=== PATIENT | female | born 1975 | race Caucasian/White ===

== ENCOUNTER → 2017-06-04 | Outpatient (CLI) | payer OTHER | LOC: M SLEEP 07:29 | DX: G47.33 Obstructive sleep apnea (adult) (pediatric) (principal) ==

== ENCOUNTER → 2017-07-06 | Outpatient (REF) | payer OTHER | LOC: M WUC 19:20 | DX: N39.0 Urinary tract infection, site not specified (principal) | CPT/HCPCS: 87086 ==

== ENCOUNTER → 2017-08-12 | Outpatient (CLI) | payer OTHER | LOC: M SLEEP 07:27 | DX: G47.33 Obstructive sleep apnea (adult) (pediatric) (principal) | CPT/HCPCS: 95811 ==

== ENCOUNTER → 2018-04-27 | Outpatient (REF) | payer OTHER ==
[2018-04-30 14:13] LABS: HPV HYBRID CAPTURE II Negative (Negative)
== END ==
LOC: M SFHCWAGY 09:31
DX: Z12.4 Encounter for screening for malignant neoplasm of cervix (principal)

== ENCOUNTER 2018-10-09 22:57 | Emergency (ER) | payer OTHER ==
[~2018-10-09] VITALS: Ht 160 cm; Wt 109.1 kg
[2018-10-09] MEDS ORDERED: [UNRECOGNIZED DRUG - REMARK] (23:09)
[2018-10-09] MEDS ORDERED: ZANTTAB PO (23:09)
[2018-10-09] MEDS ORDERED: PARO40TA3 PO (23:09)
[2018-10-09 23:34] LABS: BASO # 0.1 10^3/uL (0.0-0.2); BASO % 0.8 % (0.0-1.0); EOS # 0.2 10^3/uL (0.0-0.50); EOS % 1.6 % (0.0-3.0); HEMATOCRIT 41.3 % (36.0-47.0); HEMOGLOBIN 13.5 g/dl (12.0-15.5); LYMPH # 4.3 10^3/uL (1.5-4.5); MEAN CORPUSCULAR HEMOGLOBIN 29.7 pg (27.0-33.0); MEAN CORPUSCULAR HGB CONC 32.7 g/dl (32.0-36.5); MEAN CORPUSCULAR VOLUME 90.8 fl (80.0-96.0); MONO # 0.8 10^3/uL (0.0-0.8); MONO % 6.6 % (0.0-5.0); NEUTROPHILS # 6.5 10^3/uL (1.8-7.7); NEUTROPHILS % 54.7 % (36.0-66.0); PLATELET COUNT, AUTOMATED 333 10^3/uL (150-450); RED BLOOD COUNT 4.55 10^6/uL (4.00-5.40); WHITE BLOOD COUNT 11.9 10^3/uL (4.0-10.0)
[2018-10-10] MEDS ORDERED: ASPIRIN 81 MG CHEW TABLET PO ONE
[2018-10-10 01:49] LABS: BLOOD UREA NITROGEN 27 MG/DL (7-18); CALCIUM LEVEL 9.1 MG/DL (8.5-10.1); CARBON DIOXIDE LEVEL 24 MEQ/L (21-32); CHLORIDE LEVEL 104 MEQ/L (98-107); CPK CREATINE PHOSPHOKINASE 161 U/L (26-192); CREATININE FOR GFR 0.79 MG/DL (0.55-1.30); GLOMERULAR FILTRATION RATE > 60.0 (>58); GLUCOSE, FASTING 79 MG/DL (70-100); MB/CK RELATIVE INDEX 0.99 (< OR =4); POTASSIUM SERUM 3.6 MEQ/L (3.5-5.1); SODIUM LEVEL 138 MEQ/L (136-145); TROPONIN I < 0.02 NG/ML (< 0.10)
[2018-10-10 04:15] VITALS: BP 122/64
[2018-10-10] MEDS ORDERED: NAPR-837 PO (04:35)
--- NOTE | 2018-10-10 05:03 | REP ---
Clinical: Acute chest pain . Comparison: None . Findings: The mediastinum and cardiac silhouette are stable and within normal limits for portable technique. The lung harris are clear without acute consolidation, effusion, or pneumothorax. Skeletal structures are intact. Impression: No acute cardiopulmonary process appreciated. Electronically Signed by Aditya Krishna MD 10/10/2018 04:55 A
--- NOTE | 2018-10-10 23:29 | ECGEPIP ---
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
== END 2018-10-10 04:40 | disposition home or self-care (01) ==
LOC: M ED 22:57
DX: R07.89 Other chest pain (principal); F33.9 Major depressive disorder, recurrent, unspecified; Z79.899 Other long term (current) drug therapy; Z87.891 Personal history of nicotine dependence

== ENCOUNTER → 2018-10-14 | Outpatient (REF) | payer OTHER ==
[~2018-10-14] MED LIST: NAPR-837 PO; PARO40TA3 PO; ZANTTAB PO; [UNRECOGNIZED DRUG - REMARK]
== END ==
LOC: M SFHCADAM 12:07
PROVIDERS: ATTEND Family Medicine
DX: R07.9 Chest pain, unspecified (principal); R00.2 Palpitations

== ENCOUNTER → 2018-11-15 | Outpatient (CLI) | payer OTHER ==
--- NOTE | 2018-11-15 09:36 | REP ---
Clinical: Right foot pain Technique: AP, lateral, bilateral oblique views right . Findings: The osseous structures and joint spaces are intact and there is no evidence for acute fracture or dislocation. Well corticated bony fragments inferolateral to the cuboid bone are non-acute. Surrounding soft tissues are unremarkable. No subcutaneous emphysema or radiodense foreign body. Impression: No acute fracture or dislocation. Electronically Signed by Aditya Krishna MD 11/15/2018 09:29 A
== END ==
LOC: M WUC 09:05
PROVIDERS: ATTEND Physician Assistant
DX: M79.671 Pain in right foot (principal)

== ENCOUNTER → 2018-12-30 | Outpatient (REF) | payer OTHER ==
[~2018-12-30] MED LIST changes: +ZANT150T40 PO; -ZANTTAB PO
== END ==
LOC: M LAB REF 16:13
PROVIDERS: ATTEND Physician Assistant
DX: R30.0 Dysuria (principal)

== ENCOUNTER → 2019-01-05 | Outpatient (CLI) | payer OTHER ==
--- NOTE | 2019-01-05 14:12 | REP ---
FIRST TRIMESTER OBSTETRIC SONOGRAPHY: HISTORY: Positive test. Abnormal bleeding. FINDINGS: Transabdominal and transvaginal scanning are performed. Two intrauterine gestational sacs are seen. Each contains a yolk sac. One of these sacs contain a 1 mm crown-rump length embryonic pole. This would correspond with a 8-hcwi-8-day gestational age estimate based on crown-rump length. The second sac is a little smaller and there is no discernible embryonic pole within it. There is a small right ovarian cyst measuring 1.4 cm in greatest diameter, which may be corpus luteum. heart rate in the visible embryonic pole is recorded at 139 beats per minute. IMPRESSION: Twin intrauterine gestation 7 weeks 0 days by crown-rump length. Only one of the two sacs contain a discernible embryonic pole at this juncture. Clinical and sonographic followup is recommended. JOSH by sonography August 24, 2019.
== END ==
LOC: M WHC 08:46
PROVIDERS: ATTEND Nurse Practitioner Women's Health
DX: Z32.01 Encounter for pregnancy test, result positive (principal)

== ENCOUNTER → 2019-01-16 | Outpatient (CLI) | payer OTHER ==
[2019-01-16 17:42] LABS: BASO # 0.1 10^3/uL (0.0-0.2); BASO % 0.8 % (0.0-1.0); EOS # 0.2 10^3/uL (0.0-0.50); HEMATOCRIT 40.5 % (36.0-47.0); HEMOGLOBIN 13.2 g/dl (12.0-15.5); MEAN CORPUSCULAR HEMOGLOBIN 30.8 pg (27.0-33.0); MEAN CORPUSCULAR HGB CONC 32.6 g/dl (32.0-36.5); MEAN CORPUSCULAR VOLUME 94.4 fl (80.0-96.0); MONO # 0.6 10^3/uL (0.0-0.8); NEUTROPHILS # 6.7 10^3/uL (1.8-7.7); NEUTROPHILS % 62.8 % (36.0-66.0); PLATELET COUNT, AUTOMATED 349 10^3/uL (150-450); RED BLOOD COUNT 4.29 10^6/uL (4.00-5.40); WHITE BLOOD COUNT 10.7 10^3/uL (4.0-10.0)
[2019-01-16 21:15] LABS: CHLAMYDIA DNA AMPLIFICATION NEGATIVE (NEGATIVE); GC DNA AMPLIFICATION NEGATIVE (NEGATIVE)
[2019-01-17 08:18] LABS: HIV 1&2 SCREEN CENTAUR NEGATIVE (NEGATIVE); RUBELLA IgG QUALITATIVE IMMUNE (IMMUNE)
== END ==
LOC: M SMT 11:34
PROVIDERS: ATTEND Specialist
DX: Z34.81 Encounter for supervision of other normal pregnancy, first trimester (principal); Z3A.00 Weeks of gestation of pregnancy not specified

== ENCOUNTER → 2019-01-24 | Outpatient (CLI) | payer OTHER | LOC: M SMT 14:53 | PROVIDERS: ATTEND Advanced Practice Midwife | DX: Z34.81 Encounter for supervision of other normal pregnancy, first trimester (principal); Z36.89 Encounter for other specified antenatal screening ==

== ENCOUNTER → 2019-03-22 | Outpatient (CLI) | payer OTHER ==
[2019-03-22 20:13] LABS: BASO # 0.1 10^3/uL (0.0-0.2); BASO % 0.6 % (0.0-1.0); EOS # 0.2 10^3/uL (0.0-0.5); EOS % 1.7 % (0.0-3.0); HEMATOCRIT 37.4 % (36.0-47.0); HEMOGLOBIN 12.2 g/dl (12.0-15.5); LYMPH % 30.7 % (24.0-44.0); MEAN CORPUSCULAR HEMOGLOBIN 30.6 pg (27.0-33.0); MEAN CORPUSCULAR HGB CONC 32.6 g/dl (32.0-36.5); MEAN CORPUSCULAR VOLUME 93.7 fl (80.0-96.0); MONO # 0.6 10^3/uL (0.0-0.8); MONO % 6.5 % (0.0-5.0); NEUTROPHILS # 5.8 10^3/uL (1.5-8.5); NEUTROPHILS % 60.3 % (36.0-66.0); PLATELET COUNT, AUTOMATED 291 10^3/uL (150-450); RED BLOOD COUNT 3.99 10^6/uL (4.00-5.40); WHITE BLOOD COUNT 9.7 10^3/uL (4.0-10.0)
[2019-03-22 20:22] LABS: ALT/SGPT 18 U/L (12-78); BILIRUBIN,TOTAL 0.2 MG/DL (0.2-1.0); BLOOD UREA NITROGEN 8 MG/DL (7-18); CALCIUM LEVEL 9.5 MG/DL (8.5-10.1); CARBON DIOXIDE LEVEL 24 MEQ/L (21-32); CHLORIDE LEVEL 106 MEQ/L (98-107); CREATININE FOR GFR 0.58 MG/DL (0.55-1.30); GLOMERULAR FILTRATION RATE > 60.0 (>58); GLUCOSE, FASTING 82 MG/DL (70-100); POTASSIUM SERUM 3.9 MEQ/L (3.5-5.1); SODIUM LEVEL 138 MEQ/L (136-145); TOTAL PROTEIN 7.2 GM/DL (6.4-8.2)
[2019-03-22 20:24] LABS: INR 0.97; PROTHROMBIN TIME 12.6 SECONDS (11.8-14.0)
[2019-03-22 20:25] LABS: PARTIAL THROMBOPLASTIN TIME 28.5 SECONDS (25.0-38.4)
== END ==
LOC: M WUC 16:10
PROVIDERS: ATTEND Physician Assistant
DX: S80.11XA Contusion of right lower leg, initial encounter (principal); X58.XXXA Exposure to other specified factors, initial encounter; Y92.9 Unspecified place or not applicable

== ENCOUNTER → 2019-03-23 | Outpatient (REF) | payer OTHER ==
[2019-03-23 13:56] LABS: CREATININE,RANDOM URINE 57.7 MG/DL; TOTAL PROTEIN,RANDOM URINE 10.4 MG/DL (0.0-12.0)
== END ==
LOC: M LAB REF 12:51
PROVIDERS: ATTEND Advanced Practice Midwife
DX: O09.522 Supervision of elderly multigravida, second trimester (principal)

== ENCOUNTER → 2019-04-04 | Outpatient (CLI) | payer OTHER ==
--- NOTE | 2019-04-05 02:22 | REP ---
Clinical: Anatomical evaluation. Comparison: 01/05/2019 . Findings: Examination demonstrates a single live intrauterine in cephalic presentation. motion is identified by technologist. Placenta is noted anterior and grade I without evidence for placenta previa or abruption. Amniotic fluid volume is normal. Cervix measures 5.7 cm in length and appears closed. No evidence for nuchal cord. Gestational age by LMP 19 weeks 5 days with JOSH 08/24/2019 . Gestational age by current measurements 20 weeks 4 days with JOSH 08/18/2019 . FHR equals 150 beats per minute. BPD 4.8 cm 20 weeks 3 days HC 17.7 cm 20 weeks 1 day AC 15.7 cm 20 weeks 6 days FL 3.3 cm 20 weeks 3 days HL 3.2 cm 20 weeks 5 days HC/AC ratio 1.13 Estimated weight 365 grams ( 75th percentile). Anatomical assessment demonstrates normal structures including cranium, choroid plexus, cavum, lungs, diaphragm, stomach, cord insertion/three-vessel cord, bladder,and extremities. Limited evaluation of the posterior fossa, facial features, heart/ventricular outflow tracts, kidneys and spine noted. Impression: 1. Single live intrauterine in cephalic presentation demonstrating appropriate interval growth. 2. While no gross abnormalities are identified, anatomical limitations as noted above may warrant followup. Electronically Signed by Aditya Krishna MD 04/05/2019 02:14 A
== END ==
LOC: M RAD 15:58
PROVIDERS: ATTEND Advanced Practice Midwife
DX: Z34.82 Encounter for supervision of other normal pregnancy, second trimester (principal); Z36.89 Encounter for other specified antenatal screening; Z3A.19 19 weeks gestation of pregnancy

== ENCOUNTER → 2019-04-24 | Outpatient (CLI) | payer OTHER ==
--- NOTE | 2019-04-24 16:50 | REP ---
OB ULTRASOUND: Real-time sonographic evaluation of the gravid uterus is performed. There is a single living intrauterine gestation. The estimated gestational age is 22 weeks 4 days. EDC 08/24/2019. Today's measurements indicate appropriate growth. BPD 56 mm = 23 weeks 1 day, at the 66th percentile. HC 214 mm = 23 weeks 3 days, at the 77th percentile. AC 189 mm = 23 weeks 5 days, at the 73rd percentile. Femur length 42 mm = 23 weeks 3 days, at the 72nd percentile. HC/AC ratio 1.13 within normal range. Estimated weight 608 grams, 77th percentile. heart rate 144 beats per minute. SEEN/GROSSLY UNREMARKABLE Lateral ventricles Yes Posterior fossa Yes Upper lip Yes Four-chamber heart Yes LVOT No RVOT No Stomach No Cord insertion No Three vessel cord no Kidneys Yes Bladder No Spine Yes position: Transverse with head toward the maternal right side. Placenta: Anterior and grade 0 with no previa or abruption. Amniotic fluid: Within normal limits. Cervix is closed and measures 5.6 cm in length. Electronically Signed by Naga Maher MD 04/24/2019 04:56 P
== END ==
LOC: M RAD 15:14
PROVIDERS: ATTEND Advanced Practice Midwife
DX: O09.522 Supervision of elderly multigravida, second trimester (principal); Z3A.22 22 weeks gestation of pregnancy

== ENCOUNTER → 2019-05-25 | Outpatient (CLI) | payer OTHER ==
[2019-05-25 10:02] LABS: HEMATOCRIT 38.3 % (36.0-47.0); HEMOGLOBIN 12.2 g/dl (12.0-15.5); MEAN CORPUSCULAR HGB CONC 31.9 g/dl (32.0-36.5); MEAN CORPUSCULAR VOLUME 94.1 fl (80.0-96.0); PLATELET COUNT, AUTOMATED 257 10^3/uL (150-450); RED BLOOD COUNT 4.07 10^6/uL (4.00-5.40); WHITE BLOOD COUNT 7.8 10^3/uL (4.0-10.0)
--- NOTE | 2019-05-25 20:57 | REP ---
Clinical: Anatomical evaluation. Comparison: 04/24/2019 . Findings: Examination demonstrates a single live intrauterine in cephalic presentation. motion is identified by technologist. Placenta is noted anterior and grade zero without evidence for placenta previa or abruption. Amniotic fluid volume is normal. Cervix measures 4.8 cm in length and appears closed. No evidence for nuchal cord. Gestational age by LMP 27 weeks 0 days with JOSH 08/24/2019 . Gestational age by current measurements 28 weeks 5-day with JOSH 08/12/2019 . FHR equals 151 beats per minute. Amniotic fluid volume: 20.1 cm Umbilical cord SD ratio: 2.29 (2.60 - 4.00) Estimated weight 1274 grams ( 89th percentile). Anatomical assessment demonstrates normal structures. Impression: Single live intrauterine in cephalic presentation demonstrating appropriate interval growth. No gross abnormalities are identified. 2. Umbilical cord SD ratio minimally below normal range. Electronically Signed by Aditya Krishna MD 05/25/2019 08:48 P
== END ==
LOC: M RAD 08:08
PROVIDERS: ATTEND Obstetrics & Gynecology
DX: O09.522 Supervision of elderly multigravida, second trimester (principal); Z3A.27 27 weeks gestation of pregnancy

== ENCOUNTER → 2019-07-27 | Outpatient (REF) | payer OTHER | LOC: M SFHCWAGY 13:22 | PROVIDERS: ATTEND Nurse Practitioner Women's Health | DX: Z36.85 Encounter for antenatal screening for Streptococcus B (principal) ==

== ENCOUNTER → 2019-08-03 | Outpatient (CLI) | payer OTHER ==
--- NOTE | 2019-08-04 06:26 | REP ---
Clinical: Size/growth discrepancy. Comparison: 05/25/2019 . Findings: Examination demonstrates a single live intrauterine in cephalic presentation. motion is identified by technologist. Placenta is noted anterior and grade I I without evidence for placenta previa or abruption. Amniotic fluid volume is normal. Cervix appears closed. Gestational age by LMP 37 weeks 0 days with JOSH 08/24/2019 . Gestational age by current measurements 37 weeks 5 days with JOSH 08/19/2019 . FHR equals 146 beats per minute. Estimated weight 3963 grams ( greater than 97 percentile based on age by LMP). Amniotic fluid index: 13.9 cm (7.5 - 24.4). Impression: Single live advanced gestation in cephalic presentation demonstrating greater than expected interval growth.
== END ==
LOC: M WHC 08:13
PROVIDERS: ATTEND Nurse Practitioner Women's Health
DX: O26.843 Uterine size-date discrepancy, third trimester (principal); Z3A.37 37 weeks gestation of pregnancy; O36.63X0 Maternal care for excessive fetal growth, third trimester, not applicable or unspecified

== ENCOUNTER 2019-08-18 07:54 | Inpatient (IN) | payer OTHER ==
[2019-08-18] VITALS (34 sets, daily range): BP systolic 101–157; BP diastolic 51–82
[~2019-08-18] VITALS: Ht 160 cm; Wt 123.2 kg
[2019-08-18] MEDS ORDERED: miSOPROStol 50 MCG 1/2 TAB (S0191) PO SCH (09:00)
[2019-08-18] MEDS ORDERED: PENICILLIN G POTASSIUM IV 5 MU in D5W MINI-BAG PLUS 100 ML IV STA (09:14)
[2019-08-18 09:49] LABS: HEMATOCRIT 39.8 % (36.0-47.0); HEMOGLOBIN 13.3 g/dl (12.0-15.5); MEAN CORPUSCULAR HEMOGLOBIN 30.2 pg (27.0-33.0); MEAN CORPUSCULAR HGB CONC 33.4 g/dl (32.0-36.5); MEAN CORPUSCULAR VOLUME 90.5 fl (80.0-96.0); PLATELET COUNT, AUTOMATED 207 10^3/uL (150-450); WHITE BLOOD COUNT 7.4 10^3/uL (4.0-10.0)
--- NOTE | 2019-08-18 09:55 | HPE ---
DATE OF ADMISSION: 08/18/2019 HISTORY: Cleo is a 43-year-old, 4, para 2-0-1-2, at 39 and 1/7 weeks gestation with an expected date of confinement (EDC) of 08/24/2019, based on first trimester ultrasound. She presents to labor and delivery today for induction of labor due to advanced maternal age. Her care was initiated at [facility] in the first trimester. Her course was complicated by advanced maternal age. She was not a candidate to have aneuploidy screening done due to a diagnosis of vanishing twin with three sets of DNA, so ineligible for testing for panorama, and anxiety that has been managed with Zoloft throughout her . She denies any regular painful contractions, vaginal bleeding and leakage of fluid. Her fetus has been active. OBSTETRIC HISTORY: In 2006, blighted ovum, surgical dilation and curettage. November 2007, 39 weeks gestation, 7 pound 12 ounce male, spontaneous vaginal delivery. September 2010, 39 weeks gestation, 8 pound 3 ounce male, spontaneous vaginal delivery, with a labor that was augmented with IV Pitocin. OBSTETRIC LABS: A positive. Antibody screen negative. Rubella immune. VDRL nonreactive. Urine culture no growth. Hepatitis B surface antigen negative. HIV negative. Hepatitis C antibody nonreactive. Gonorrhea and Chlamydia negative. Gestational diabetic screening normal at 113. Her GBS is positive. PAST MEDICAL HISTORY: Obesity. Childhood febrile seizures. Anxiety. Varicose veins. Childhood varicella. SURGERIES: Dilation and curettage. FAMILY HISTORY: Diabetes. Hypertension. Heart disease. Seizure. SOCIAL HISTORY: The patient is . Her is at bedside and supportive. She is a nonsmoker. Denies alcohol and drug use. No history of any sexually transmitted infections. She denies history of abuse - physical, sexual and emotional. ALLERGIES: No known drug allergies. CURRENT MEDICATIONS: Zoloft 25 mg. vitamin. OBJECTIVE: A complete set of vital signs have yet to be taken after patient's arrival. Her pulse is 86, blood pressure is 133/74. She is alert and oriented times three. She is in no apparent discomfort. She is smiling and talkative. heart rate is 130 with moderate variability, positive accelerations, no decelerations observed. There is no pattern of regular contractions. Her abdomen is gravid. Cephalic presentation. Estimated weight 4200 grams. Sterile Vaginal Exam: Fingertip dilated, 50% effaced, -2 station, posterior, extremely soft, scant bloody show with the exam. ASSESSMENT: Intrauterine at 39 and 1/7 weeks. heart rate Category 1. Advanced maternal age. PLAN: Admit patient to labor and delivery for induction of labor per consult with Dr. Minh Saleem. Plan to start misoprostol 50 mcg by mouth every 4 hours for cervical ripening. Out of bed ad diane. Regular diet at this time. Saline lock. Start GBS prophylaxis with antibiotics IV. I did review risks, benefits and alternatives to induction. The patient and her had their questions answered. She has been verbally consented for emergency surgery and blood products if necessary. I do anticipate cervical ripening, labor and a vaginal delivery.
[2019-08-18] MEDS: LR 1,000 ML IV SCH ×3 (10:19→21:10)
[2019-08-18] MEDS ORDERED: LR 1,000 ML IV SCH (14:47)
[2019-08-18] MEDS ORDERED: OXYTOCIN DRIP 30 UNITS in IV 1 EA IV SCH (15:00)
[2019-08-18] MEDS: SERTRALINE HCL 50 MG TAB PO SCH (15:36)
[2019-08-18] MEDS ORDERED: FENTANYL 2MCG/ML ROPIVACAINE 0.2% IN 0.9% NACL 100ML IVBAG As Ordered ONE (19:29)
[2019-08-18] MEDS: PENICILLIN G POTASSIUM IV 2.5 MU in IV 1 EA IV SCH ×2 (19:30→23:13)
[2019-08-18] MEDS ORDERED: ONDANSETRON 4MG/2ML VIAL (J2405) IV PRN (20:15)
[2019-08-18] MEDS ORDERED: EPIDURAL/PCA KEYS XX PRN (20:15)
[2019-08-18] MEDS ORDERED: REFRIGERATOR IV KEYS XX PRN (20:15)
[2019-08-18] MEDS ORDERED: EPIDURAL COMMENT XX SCH (20:15)
[2019-08-18] MEDS ORDERED: ePHEDrine SULFATE 25 MG/5 ML(5MG/ML) SYRINGE IV PRN (20:15)
[2019-08-18] MEDS ORDERED: diphenhydrAMINE INJ 50MG/ML VIAL (J1200) IV PRN (20:15)
[2019-08-18] MEDS ORDERED: LACTATED RINGER'S 1000 ML IV PRN (20:15)
[2019-08-18] MEDS ORDERED: NALOXONE INJ 0.4 MG/1 ML VIAL (J2310) IV PRN (20:15)
[2019-08-18] MEDS: FENTANYL/ROPIVACAINE/NACL BAG 100 ML EPIDURAL SCH (20:39)
[2019-08-19] VITALS (34 sets, daily range): BP systolic 113–168; BP diastolic 54–101
[2019-08-19] MEDS: PENICILLIN G POTASSIUM IV 2.5 MU in IV 1 EA IV SCH (03:44)
[2019-08-19] MEDS ORDERED: FENTANYL 2MCG/ML ROPIVACAINE 0.2% IN 0.9% NACL 100ML IVBAG As Ordered ONE (04:32)
[2019-08-19] MEDS: FENTANYL/ROPIVACAINE/NACL BAG 100 ML EPIDURAL SCH (04:36)
[2019-08-19 05:47] LABS: CORD GAS ABE V -2.2; CORD GAS HCO3 V 23.3 MEQ/L; CORD GAS O2 SAT V 63.6 %; CORD GAS PCO2 V 42.2 mmHg; CORD GAS PH V 7.359 UNITS; CORD GAS PO2 V 25.3 mmHg; CORD GAS SBC V 21.7 MEQ/L; CORD GAS TCO2 V 24.5 MEQ/L
[2019-08-19 05:48] LABS: CORD GAS ABE A -3.2; CORD GAS HCO3 A 24.5 MEQ/L; CORD GAS O2 SAT A 33.5 %; CORD GAS PCO2 A 53.8 mmHg; CORD GAS PH A 7.277 UNITS; CORD GAS PO2 A 17.1 mmHg; CORD GAS SBC A 20.1 MEQ/L; CORD GAS TCO2 A 26.2 MEQ/L
[2019-08-19] MEDS ORDERED: OXYTOCIN DRIP 30 UNITS in IV 1 EA IV SCH (06:06)
[2019-08-19] MEDS ORDERED: MEASLES,MUMPS,RUBELLA VACCINE INJ (MMR-II) (90707) SC SCH (06:15)
[2019-08-19] MEDS ORDERED: ACETAMINOPHEN TAB 650MG DOSE (2X325MG) PO PRN (06:15)
[2019-08-19] MEDS ORDERED: METHYLERGONOVINE MALEATE 0.2 MG TAB PO PRN (06:15)
[2019-08-19] MEDS ORDERED: RHOGAM 300 MCG (1500 IU) INJ (J2790) IM SCH (06:15)
[2019-08-19] MEDS ORDERED: IBUPROFEN 800 MG TAB PO PRN (06:15)
[2019-08-19] MEDS ORDERED: DIBUCAINE 1% OINTMENT 30GM TOP PRN (06:15)
[2019-08-19] MEDS ORDERED: DOCUSATE SODIUM 100 MG CAP PO PRN (06:15)
--- NOTE | 2019-08-19 06:38 | DN ---
DATE OF DELIVERY: 08/19/2019 DELIVERY NOTE: Cleo is a 43-year-old, 4, para 3-0-1-3 now , who was admitted to labor and delivery for induction of labor. Misoprostol and IV Pitocin was used and labor ensued. She used an epidural to cope with her labor. She reached full dilation at 0524 hours. She pushed to a normal spontaneous vaginal delivery of a live female infant in right occiput anterior (KAREN) position with restitution to occiput transverse (ROT) position at 0532 hours. There is a nuchal cord times one loose that was reduced manually at the time of delivery. The female shoulders delivered with gentle downward traction and the corpus immediately followed and was placed on maternal abdomen crying and active. Mouth and nares were bulb suctioned. The cord was clamped times two and cut by the father of the baby under my direction. Cord blood and cord gases were obtained. Arterial cord gas 7.277, base excess -3.2. Venous cord pH 7.359 with a base excess of -2.2. Spontaneous expulsion of an intact placenta with three-vessel cord by Schultze mechanism was at 0535 hours. Uterine hemostasis was achieved with IV Pitocin rapid infusion and uterine fundal massage. Estimated blood loss 350 mL. Perineum and vagina inspected and noted to have a vaginal abrasion. The vaginal abrasion was repaired with #3-0 Rapide in the usual fashion for hemostasis. female weighed 8 pounds 10 ounces (3900 grams), 8 and 9. Mom is going to breastfeed her daughter and the family have named her Bison. At the close of delivery, lap counts, needle counts and instrument counts were correct and verified.
[2019-08-19] MEDS: PRENATAL VITAMINS CHEWABLE TABLET PO SCH ×2 (09:35→09:36)
[2019-08-19] MEDS: SERTRALINE HCL 50 MG TAB PO SCH (09:47)
[2019-08-19] MEDS: ACETAMINOPHEN 500 MG TAB PO PRN ×2 (09:47→14:18)
[2019-08-19] MEDS: IBUPROFEN 600 MG TAB PO PRN (12:58)
[2019-08-19] MEDS: FIORICET TAB PO PRN ×2 (16:32→20:51)
[2019-08-20] MEDS: IBUPROFEN 600 MG TAB PO PRN (00:57)
[2019-08-20 06:00] VITALS: BP 117/57
[2019-08-20] MEDS: SERTRALINE HCL 50 MG TAB PO SCH (09:35)
[2019-08-20] MEDS: PRENATAL VITAMINS CHEWABLE TABLET PO SCH (09:35)
[2019-08-20] MEDS: FIORICET TAB PO PRN ×2 (10:21→20:36)
[2019-08-20 18:00] VITALS: BP 137/64
[2019-08-21 06:00] VITALS: BP 118/61
[2019-08-21] MEDS ORDERED: ACET-683 PO (07:03)
[2019-08-21] MEDS ORDERED: IBUP-1022 PO (07:03)
[2019-08-21] MEDS: PRENATAL VITAMINS CHEWABLE TABLET PO SCH (09:04)
== END 2019-08-21 12:30 | disposition home or self-care (01) | DRG 807 ==
LOC: M LDI 07:54 → M OBS 08-19 10:01
PROVIDERS: ADMIT Advanced Practice Midwife; ATTEND Advanced Practice Midwife
PROC: 3E033VJ Introduction of Other Hormone into Peripheral Vein, Percutaneous Approach (ICD-10-PCS; 2019-08-18)
PROC: 10E0XZZ Delivery of Products of Conception, External Approach (ICD-10-PCS; principal; 2019-08-19)
PROC: 0HQ9XZZ Repair Perineum Skin, External Approach (ICD-10-PCS; 2019-08-19)
DX: O70.0 First degree perineal laceration during delivery (principal); Z37.0 Single live birth; Z3A.39 39 weeks gestation of pregnancy; O09.523 Supervision of elderly multigravida, third trimester

== ENCOUNTER 2019-12-26 14:23 | Emergency (ER) | payer OTHER ==
[~2019-12-26 14:23] MED LIST changes: +ACET-683 PO; +IBUP-1022 PO
== END 2019-12-26 14:36 | disposition home or self-care (01) ==
LOC: M ED 14:23
DX: S39.012A Strain of muscle, fascia and tendon of lower back, initial encounter (principal); M25.561 Pain in right knee; W01.0XXA Fall on same level from slipping, tripping and stumbling without subsequent striking against object, initial encounter; Y92.9 Unspecified place or not applicable; Z79.899 Other long term (current) drug therapy

== ENCOUNTER → 2020-02-13 | Outpatient (REF) | payer OTHER | LOC: M LAB REF 18:41 | PROVIDERS: ATTEND Dermatology | DX: D23.72 Other benign neoplasm of skin of left lower limb, including hip (principal); D23.62 Other benign neoplasm of skin of left upper limb, including shoulder ==

== ENCOUNTER → 2020-07-05 | Outpatient (CLI) | payer OTHER ==
[~2020-07-05] MED LIST changes: +FAMO20TA PO; +SERT-141 PO
== END ==
LOC: M LABSMTC 10:15
PROVIDERS: ATTEND Anesthesiology
DX: Z01.812 Encounter for preprocedural laboratory examination (principal); Z20.822 Contact with and (suspected) exposure to COVID-19

== ENCOUNTER 2020-07-10 08:09 | Day surgery (SDC) | payer OTHER ==
[~2020-07-10] VITALS: Ht 160 cm; Wt 109.8 kg
[~2020-07-10 08:09] MED LIST changes: +LR 1,000 ML IV ONE; +ceFAZolin SOD 2 GM in IV 1 EA IV ONE
--- OUTSIDE RECORDS SUMMARY | 2020-07-10 08:12 | CCD | Continuity of Care Document ---
Author Author Cleo LOPEZ P.Carol Organization Unknown Address [address] [place] [id number] Phone [phone] Problems Description No Information Available Social History Type Date Description Comments Sex Unknown Allergies, Adverse Reactions, Alerts Description No Information Available Medications Description No Information Available Immunizations Description No Information Available Vital Signs Description No Information Available Results Description No Information Available Procedures Date Code Description Status 05/10/2020 62505 Therapeutic Procedure, Each 15 M inutes Completed 05/10/2020 41911 Ultrasound, Each 15 Min, Constan t Attendance Completed 05/10/2020 47056 Hot Or Cold Packs Completed 05/06/2020 06606 Therapeutic Procedure, Each 15 M inutes Completed 05/06/2020 37781 Ultrasound, Each 15 Min, Constan t Attendance Completed 05/06/2020 62119 Hot Or Cold Packs Completed 04/12/2020 47336 Therapeutic Procedure, Each 15 M inutes Completed 04/12/2020 34603 Therapeutic Procedure, Each 15 M inutes Completed 04/12/2020 95105 Ultrasound, Each 15 Min, Constan t Attendance Completed 04/09/2020 47286 Therapeutic Procedure, Each 15 M inutes Completed 04/09/2020 66107 Therapeutic Procedure, Each 15 M inutes Completed 04/09/2020 42658 Ultrasound, Each 15 Min, Constan t Attendance Completed 04/04/2020 70416 Ultrasound, Each 15 Min, Constan t Attendance Completed 04/04/2020 64252 Therapeutic Procedure, Each 15 M inutes Completed 04/02/2020 38798 Therapeutic Procedure, Each 15 M inutes Completed 04/02/2020 90375 Ultrasound, Each 15 Min, Constan t Attendance Completed 03/28/2020 37420 Therapeutic Procedure, Each 15 M inutes Completed 03/28/2020 20054 Ultrasound, Each 15 Min, Constan t Attendance Completed 03/28/2020 64029 Hot Or Cold Packs Completed 03/26/2020 21219 Manual Therapy Each 15 Minutes C ompleted 03/26/2020 01487 Therapeutic Procedure, Each 15 M inutes Completed 03/26/2020 14480 Hot Or Cold Packs Completed 03/20/2020 29516 Hot Or Cold Packs Completed 03/20/2020 99634 Therapeutic Procedure, Each 15 M inutes Completed 03/20/2020 99584 Manual Therapy Each 15 Minutes C ompleted 03/20/2020 38299 Re-Eval Of PT Establ ished Plan Of Care 20Mins Face To Face PT/Fam Completed 03/18/2020 79345 Therapeutic Procedure, Each 15 M inutes Completed 03/18/2020 88957 Therapeutic Procedure, Each 15 M inutes Completed 03/18/2020 59486 Hot Or Cold Packs Completed 03/13/2020 20616 Therapeutic Procedure, Each 15 M inutes Completed 03/13/2020 89797 Therapeutic Procedure, Each 15 M inutes Completed 03/11/2020 78390 Therapeutic Procedure, Each 15 M inutes Completed 03/11/2020 45661 Therapeutic Procedure, Each 15 M inutes Completed 03/11/2020 61855 Hot Or Cold Packs Completed 03/05/2020 50549 Therapeutic Procedure, Each 15 M inutes Completed 03/05/2020 53256 Therapeutic Procedure, Each 15 M inutes Completed 02/28/2020 40449 Therapeutic Procedure, Each 15 M inutes Completed 02/28/2020 51463 Therapeutic Procedure, Each 15 M inutes Completed 02/26/2020 98929 Therapeutic Procedure, Each 15 M inutes Completed 02/26/2020 97477 Therapeutic Procedure, Each 15 M inutes Completed 02/23/2020 94347 Therapeutic Procedure, Each 15 M inutes Completed 02/21/2020 84222 Therapeutic Procedure, Each 15 M inutes Completed 02/21/2020 59446 Therapeutic Procedure, Each 15 M inutes Completed 02/21/2020 69548 Therapeutic Procedure, Each 15 M inutes Completed 02/15/2020 87694 Therapeutic Procedure, Each 15 M inutes Completed 02/15/2020 86159 Therapeutic Procedure, Each 15 M inutes Completed 02/13/2020 06273 Therapeutic Procedure, Each 15 M inutes Completed 02/13/2020 02216 Therapeutic Procedure, Each 15 M inutes Completed 02/08/2020 72349 Therapeutic Procedure, Each 15 M inutes Completed 02/08/2020 27304 Therapeutic Procedure, Each 15 M inutes Completed 02/06/2020 66122 Therapeutic Procedure, Each 15 M inutes Completed 02/06/2020 24669 Therapeutic Procedure, Each 15 M inutes Completed 02/06/2020 93036 Hot Or Cold Packs Completed 01/18/2020 67678 Therapeutic Procedure, Each 15 M inutes Completed 01/18/2020 90028 Therapeutic Procedure, Each 15 M inutes Completed 01/18/2020 28399 Hot Or Cold Packs Completed 01/16/2020 27798 Therapeutic Procedure, Each 15 M inutes Completed 01/16/2020 12448 Therapeutic Procedure, Each 15 M inutes Completed 01/11/2020 05848 Therapeutic Procedure, Each 15 M inutes Completed 01/11/2020 27929 Therapeutic Procedure, Each 15 M inutes Completed 01/11/2020 91998 Hot Or Cold Packs Completed 01/09/2020 31568 Hot Or Cold Packs Completed 01/09/2020 91654 Therapeutic Procedure, Each 15 M inutes Completed 01/09/2020 55043 Therapeutic Procedure, Each 15 M inutes Completed 01/03/2020 14807 Therapeutic Procedure, Each 15 M inutes Completed 01/03/2020 64615 Therapeutic Procedure, Each 15 M inutes Completed 01/03/2020 31598 Hot Or Cold Packs Completed 01/01/2020 79544 Therapeutic Procedure, Each 15 M inutes Completed 01/01/2020 82107 Hot Or Cold Packs Completed 12/28/2019 71217 Therapeutic Procedure, Each 15 M inutes Completed 12/28/2019 60712 Hot Or Cold Packs Completed 12/21/2019 53791 Therapeutic Procedure, Each 15 M inutes Completed 12/21/2019 35857 Hot Or Cold Packs Completed 12/19/2019 22651 Hot Or Cold Packs Completed 12/19/2019 52220 Therapeutic Procedure, Each 15 M inutes Completed 12/19/2019 32484 Therapeutic Procedure, Each 15 M inutes Completed 12/13/2019 68007 Therapeutic Procedure, Each 15 M inutes Completed 12/13/2019 18786 Therapeutic Procedure, Each 15 M inutes Completed 12/13/2019 72920 Therapeutic Procedure, Each 15 M inutes Completed 12/13/2019 49181 Hot Or Cold Packs Completed 12/11/2019 67553 Therapeutic Procedure, Each 15 M inutes Completed 12/11/2019 92663 Therapeutic Procedure, Each 15 M inutes Completed 12/11/2019 16501 Hot Or Cold Packs Completed 12/07/2019 71523 Hot Or Cold Packs Completed 12/07/2019 38497 Therapeutic Procedure, Each 15 M inutes Completed 12/07/2019 89402 Therapeutic Procedure, Each 15 M inutes Completed 12/07/2019 23989 Re-Eval Of PT Establ ished Plan Of Care 20Mins Face To Face PT/Fam Completed 12/05/2019 23705 Therapeutic Procedure, Each 15 M inutes Completed 12/05/2019 13938 Therapeutic Procedure, Each 15 M inutes Completed 12/05/2019 08226 Hot Or Cold Packs Completed 12/01/2019 40326 Therapeutic Procedure, Each 15 M inutes Completed 12/01/2019 58999 Therapeutic Procedure, Each 15 M inutes Completed 12/01/2019 96852 Hot Or Cold Packs Completed 11/29/2019 95733 Manual Therapy Each 15 Minutes C ompleted 11/29/2019 66562 Therapeutic Procedure, Each 15 M inutes Completed 11/29/2019 42559 Therapeutic Procedure, Each 15 M inutes Completed 11/29/2019 24271 Hot Or Cold Packs Completed 11/21/2019 37573 Physical Therapy Eval - Low Comp lexity Completed 11/21/2019 33273 Hot Or Cold Packs Completed Medical Devices Description No Information Available Encounters Description No Information Available Assessments Date Code Description Provider 05/10/2020 S83.242D Other tear of medial meniscus, current injury, left knee, subsequent encounter Tu Lopez P.T. 05/06/2020 S83.242D Other tear of medial meniscus, current injury, left knee, subsequent encounter Cleo Maher, [facility] 04/12/2020 S83.242D Other tear of medial meniscus, current injury, left knee, subsequent encounter Cleo Maher, [facility] 04/09/2020 S83.242D Other tear of medial meniscus, current injury, left knee, subsequent encounter Cleo Maher, [facility] 04/04/2020 S83.242D Other tear of medial meniscus, current injury, left knee, subsequent encounter Cleo Maher, [facility] 04/02/2020 S83.242D Other tear of medial meniscus, current injury, left knee, subsequent encounter Cleo Maher, [facility] 03/28/2020 S83.242D Other tear of medial meniscus, current injury, left knee, subsequent encounter Cleo Maher, [facility] 03/26/2020 S83.242D Other tear of medial meniscus, current injury, left knee, subsequent encounter Cleo Maher, [facility] 03/20/2020 S83.242D Other tear of medial meniscus, current injury, left knee, subsequent encounter Cleo Maher, [facility] 03/18/2020 S83.242D Other tear of medial meniscus, current injury, left knee, subsequent encounter Cleo Maher, [facility] 03/13/2020 S83.242D Other tear of medial meniscus, current injury, left knee, subsequent encounter Cleo Maher, [facility] 03/11/2020 S83.242D Other tear of medial meniscus, current injury, left knee, subsequent encounter Cleo Maher, [facility] 03/05/2020 S83.242D Other tear of medial meniscus, current injury, left knee, subsequent encounter Cleo Maher, [facility] 02/28/2020 S80.02xD Contusion of left knee, subseque nt encounter Cleo Cariaspa, [facility] 02/26/2020 S80.02xD Contusion of left knee, subseque nt encounter Juanjose Holder, PT, DPT 02/23/2020 S80.02xD Contusion of left knee, subseque nt encounter Juanjose Holder, PT, DPT 02/21/2020 S80.02xD Contusion of left knee, subseque nt encounter Tu Lopez P.T. 02/15/2020 S80.02xD Contusion of left knee, subseque nt encounter [facility] Cariaspa, [facility] 02/13/2020 S80.02xD Contusion of left knee, subseque nt encounter Cleo M. Jvpa, [facility] 02/08/2020 S80.02xD Contusion of left knee, subseque nt encounter Cleo M. Vespa, [facility] 02/06/2020 S80.02xD Contusion of left knee, subseque nt encounter Cleo M. Vespa, [facility] 01/18/2020 S80.02xD Contusion of left knee, subseque nt encounter Cleo M. Jvpa, [facility] 01/16/2020 S80.02xD Contusion of left knee, subseque nt encounter Cleo Cariasarnol, [facility] 01/11/2020 S80.02xD Contusion of left knee, subseque nt encounter Cleo Maher, [facility] 01/09/2020 S80.02xD Contusion of left knee, subseque nt encounter Cleo Tae Cariasarnol, [facility] 01/03/2020 S80.02xD Contusion of left knee, subseque nt encounter Cleo Cariasarnol, [facility] 01/01/2020 S80.02xD Contusion of left knee, subseque nt encounter Tu Lopez P.T. 12/28/2019 S80.02xD Contusion of left knee, subseque nt encounter Tu Lopez P.T. 12/21/2019 S80.02xD Contusion of left knee, subseque nt encounter Cleo Cariasarnol, [facility] 12/19/2019 S80.02xD Contusion of left knee, subseque nt encounter Cleo Cariasarnol, [facility] 12/13/2019 S80.02xD Contusion of left knee, subseque nt encounter Tu Lopez P.T. 12/11/2019 S80.02xD Contusion of left knee, subseque nt encounter Tu Lopez P.T. 12/07/2019 S80.02xD Contusion of left knee, subseque nt encounter Cleo Cariasarnol, [facility] 12/05/2019 S80.02xD Contusion of left knee, subseque nt encounter Cleo CortesSemaj Jvarnol, [facility] 12/01/2019 S80.02xD Contusion of left knee, subseque nt encounter Cleonarciso Maher, [facility] 11/29/2019 S80.02xD Contusion of left knee, subseque nt encounter Cleonarciso Maher, [facility] 11/21/2019 S80.02xD Contusion of left knee, subseque nt encounter KEREN Samson Plan of Treatment Future Appointment(s):* 05/22/2020 8:30 am - KEREN Samson at Physical Therapy Referral Functional Status Description No Information Available Mental Status Description No Information Available Referrals Refer to Reason for Referral Status Appt Date Kishan Patel MD PT LT KNEE WRITTEN AUTH PASS ED TO TRIAGE THEN PT DEPT. 05/03/20 PER ESTELLE OK TO FINISH THE REST. Created [address] [place] [phone] Kevin Milian MD PT- LT KNEE WRITTEN AUTH PASSED TOTRIAGE THEN PT DEPT. Created [address] [place] [phone] Tu Lopez RPT PT- LT KNEE OK TO HEATH 2ND SE T. PASSED TO TRIAGE THEN PT DEPT. Created [address] [place], [place] [id number] [place] [address] [phone]
--- OUTSIDE RECORDS SUMMARY | 2020-07-10 08:12 | CCD ---
Continuity of Care Document (CCD) Created on: 05/29/2020 Cleo Nick External Reference #: [id number] : [id number] Sex: Female Author Author Cleo LOPEZ P.Carol Organization Unknown Address [address] [place] [id number] Phone [phone] Problems Description No Information Available Social History Type Date Description Comments Sex Unknown Allergies, Adverse Reactions, Alerts Description No Information Available Medications Description No Information Available Immunizations Description No Information Available Vital Signs Description No Information Available Results Description No Information Available Procedures Date Code Description Status 05/22/2020 04217 Therapeutic Procedure, Each 15 M inutes Completed 05/22/2020 32611 Ultrasound, Each 15 Min, Constan t Attendance Completed 05/15/2020 48268 Therapeutic Procedure, Each 15 M inutes Completed 05/15/2020 94624 Ultrasound, Each 15 Min, Constan t Attendance Completed 05/10/2020 01281 Therapeutic Procedure, Each 15 M inutes Completed 05/10/2020 55787 Ultrasound, Each 15 Min, Constan t Attendance Completed 05/10/2020 58076 Hot Or Cold Packs Completed 05/06/2020 29794 Therapeutic Procedure, Each 15 M inutes Completed 05/06/2020 16482 Ultrasound, Each 15 Min, Constan t Attendance Completed 05/06/2020 24449 Hot Or Cold Packs Completed 04/12/2020 00257 Ultrasound, Each 15 Min, Constan t Attendance Completed 04/12/2020 92555 Therapeutic Procedure, Each 15 M inutes Completed 04/12/2020 43951 Therapeutic Procedure, Each 15 M inutes Completed 04/09/2020 21358 Therapeutic Procedure, Each 15 M inutes Completed 04/09/2020 22824 Therapeutic Procedure, Each 15 M inutes Completed 04/09/2020 45692 Ultrasound, Each 15 Min, Constan t Attendance Completed 04/04/2020 27503 Therapeutic Procedure, Each 15 M inutes Completed 04/04/2020 94183 Ultrasound, Each 15 Min, Constan t Attendance Completed 04/02/2020 48353 Therapeutic Procedure, Each 15 M inutes Completed 04/02/2020 52039 Ultrasound, Each 15 Min, Constan t Attendance Completed 03/28/2020 06305 Therapeutic Procedure, Each 15 M inutes Completed 03/28/2020 20082 Ultrasound, Each 15 Min, Constan t Attendance Completed 03/28/2020 21827 Hot Or Cold Packs Completed 03/26/2020 11786 Hot Or Cold Packs Completed 03/26/2020 99467 Therapeutic Procedure, Each 15 M inutes Completed 03/26/2020 15396 Manual Therapy Each 15 Minutes C ompleted 03/20/2020 89870 Re-Eval Of PT Establ ished Plan Of Care 20Mins Face To Face PT/Fam Completed 03/20/2020 67713 Manual Therapy Each 15 Minutes C ompleted 03/20/2020 27181 Therapeutic Procedure, Each 15 M inutes Completed 03/20/2020 49107 Hot Or Cold Packs Completed 03/18/2020 08676 Therapeutic Procedure, Each 15 M inutes Completed 03/18/2020 04541 Therapeutic Procedure, Each 15 M inutes Completed 03/18/2020 16479 Hot Or Cold Packs Completed 03/13/2020 66164 Therapeutic Procedure, Each 15 M inutes Completed 03/13/2020 88359 Therapeutic Procedure, Each 15 M inutes Completed 03/11/2020 56733 Hot Or Cold Packs Completed 03/11/2020 74540 Therapeutic Procedure, Each 15 M inutes Completed 03/11/2020 19826 Therapeutic Procedure, Each 15 M inutes Completed 03/05/2020 03619 Therapeutic Procedure, Each 15 M inutes Completed 03/05/2020 41889 Therapeutic Procedure, Each 15 M inutes Completed 02/28/2020 37865 Therapeutic Procedure, Each 15 M inutes Completed 02/28/2020 35759 Therapeutic Procedure, Each 15 M inutes Completed 02/26/2020 30111 Therapeutic Procedure, Each 15 M inutes Completed 02/26/2020 34646 Therapeutic Procedure, Each 15 M inutes Completed 02/23/2020 11731 Therapeutic Procedure, Each 15 M inutes Completed 02/21/2020 88565 Therapeutic Procedure, Each 15 M inutes Completed 02/21/2020 00746 Therapeutic Procedure, Each 15 M inutes Completed 02/21/2020 00017 Therapeutic Procedure, Each 15 M inutes Completed 02/15/2020 95530 Therapeutic Procedure, Each 15 M inutes Completed 02/15/2020 69416 Therapeutic Procedure, Each 15 M inutes Completed 02/13/2020 72764 Therapeutic Procedure, Each 15 M inutes Completed 02/13/2020 85232 Therapeutic Procedure, Each 15 M inutes Completed 02/08/2020 65994 Therapeutic Procedure, Each 15 M inutes Completed 02/08/2020 02892 Therapeutic Procedure, Each 15 M inutes Completed 02/06/2020 89894 Therapeutic Procedure, Each 15 M inutes Completed 02/06/2020 03291 Therapeutic Procedure, Each 15 M inutes Completed 02/06/2020 78557 Hot Or Cold Packs Completed 01/18/2020 16033 Therapeutic Procedure, Each 15 M inutes Completed 01/18/2020 48621 Therapeutic Procedure, Each 15 M inutes Completed 01/18/2020 79940 Hot Or Cold Packs Completed 01/16/2020 78490 Therapeutic Procedure, Each 15 M inutes Completed 01/16/2020 11355 Therapeutic Procedure, Each 15 M inutes Completed 01/11/2020 54600 Hot Or Cold Packs Completed 01/11/2020 60695 Therapeutic Procedure, Each 15 M inutes Completed 01/11/2020 77957 Therapeutic Procedure, Each 15 M inutes Completed 01/09/2020 96151 Therapeutic Procedure, Each 15 M inutes Completed 01/09/2020 69066 Therapeutic Procedure, Each 15 M inutes Completed 01/09/2020 67865 Hot Or Cold Packs Completed 01/03/2020 54951 Therapeutic Procedure, Each 15 M inutes Completed 01/03/2020 15528 Therapeutic Procedure, Each 15 M inutes Completed 01/03/2020 08415 Hot Or Cold Packs Completed 01/01/2020 67547 Therapeutic Procedure, Each 15 M inutes Completed 01/01/2020 14661 Hot Or Cold Packs Completed 12/28/2019 72327 Therapeutic Procedure, Each 15 M inutes Completed 12/28/2019 54655 Hot Or Cold Packs Completed 12/21/2019 83231 Hot Or Cold Packs Completed 12/21/2019 90978 Therapeutic Procedure, Each 15 M inutes Completed 12/19/2019 02134 Therapeutic Procedure, Each 15 M inutes Completed 12/19/2019 16621 Therapeutic Procedure, Each 15 M inutes Completed 12/19/2019 72089 Hot Or Cold Packs Completed 12/13/2019 68387 Therapeutic Procedure, Each 15 M inutes Completed 12/13/2019 25547 Therapeutic Procedure, Each 15 M inutes Completed 12/13/2019 07132 Therapeutic Procedure, Each 15 M inutes Completed 12/13/2019 46596 Hot Or Cold Packs Completed 12/11/2019 59009 Therapeutic Procedure, Each 15 M inutes Completed 12/11/2019 46393 Therapeutic Procedure, Each 15 M inutes Completed 12/11/2019 81138 Hot Or Cold Packs Completed 12/07/2019 55876 Hot Or Cold Packs Completed 12/07/2019 91005 Therapeutic Procedure, Each 15 M inutes Completed 12/07/2019 30550 Therapeutic Procedure, Each 15 M inutes Completed 12/07/2019 98663 Re-Eval Of PT Establ ished Plan Of Care 20Mins Face To Face PT/Fam Completed 12/05/2019 79154 Therapeutic Procedure, Each 15 M inutes Completed 12/05/2019 27440 Therapeutic Procedure, Each 15 M inutes Completed 12/05/2019 95126 Hot Or Cold Packs Completed 12/01/2019 32959 Therapeutic Procedure, Each 15 M inutes Completed 12/01/2019 34026 Therapeutic Procedure, Each 15 M inutes Completed 12/01/2019 43454 Hot Or Cold Packs Completed 11/29/2019 36079 Manual Therapy Each 15 Minutes C ompleted 11/29/2019 20059 Therapeutic Procedure, Each 15 M inutes Completed 11/29/2019 65163 Therapeutic Procedure, Each 15 M inutes Completed 11/29/2019 35392 Hot Or Cold Packs Completed Medical Devices Description No Information Available Encounters Description No Information Available Assessments Date Code Description Provider 05/22/2020 S83.242D Other tear of medial meniscus, current injury, left knee, [facility] S83.242D Other tear of medial meniscus, current injury, left knee, subsequent encounter Tu Lopez P.T. 05/10/2020 S83.242D Other tear of medial meniscus, current injury, left knee, subsequent encounter Tu Lopez P.T. 05/06/2020 S83.242D Other tear of medial meniscus, current injury, left knee, subsequent encounter KEREN Samson 04/12/2020 S83.242D Other tear of medial meniscus, current injury, left knee, [facility] 04/09/2020 S83.242D Other tear of medial meniscus, current injury, left knee, subsequent [facility] 04/04/2020 S83.242D Other tear of medial meniscus, current injury, left knee, subsequent [facility] 04/02/2020 S83.242D Other tear of medial meniscus, current injury, left knee, subsequent encounter Cleo Maher, [facility] 03/28/2020 S83.242D Other tear of medial meniscus, current injury, left knee, subsequent [facility] 03/26/2020 S83.242D Other tear of medial meniscus, current injury, left knee, subsequent encounter Cleo Maher, [facility] 03/20/2020 S83.242D Other tear of medial meniscus, current injury, left knee, subsequent encounter Cleo Maher, [facility] 03/18/2020 S83.242D Other tear of medial meniscus, current injury, left knee, subsequent encounter Cleo Maher, [facility] 03/13/2020 S83.242D Other tear of medial meniscus, current injury, left knee, subsequent encounter Cleo Maher, [facility] 03/11/2020 S83.242D Other tear of medial meniscus, current injury, left knee, subsequent encounter Cleo Maher, [facility] 03/05/2020 S83.242D Other tear of medial meniscus, current injury, left knee, subsequent encounter Cleo Maher, [facility] 02/28/2020 S80.02xD Contusion of left knee, subseque nt encounter [facility]/26/2020 S80.02xD Contusion of left knee, subseque nt encounter Juanjose Holder, PT, DPT 02/23/2020 S80.02xD Contusion of left knee, subseque nt encounter Juanjose Holder, PT, DPT 02/21/2020 S80.02xD Contusion of left knee, subseque nt encounter Tu Lopez P.T. 02/15/2020 S80.02xD Contusion of left knee, subseque nt encounter [facility]/13/2020 S80.02xD Contusion of left knee, subseque nt encounter Cleo Maher, [facility] 02/08/2020 S80.02xD Contusion of left knee, subseque nt encounter Cleo Cariaspa, [facility] 02/06/2020 S80.02xD Contusion of left knee, subseque nt encounter Cleo Maher, [facility] 01/18/2020 S80.02xD Contusion of left knee, subseque nt encounter Cleo Cariaspa, [facility] 01/16/2020 S80.02xD Contusion of left knee, subseque nt encounter Cleo Cariaspa, [facility] 01/11/2020 S80.02xD Contusion of left knee, subseque nt encounter Cleo Cariaspa, [facility] 01/09/2020 S80.02xD Contusion of left knee, subseque nt encounter Cleo Maher, [facility] 01/03/2020 S80.02xD Contusion of left knee, subseque nt encounter Cleo Cariaspa, [facility] 01/01/2020 S80.02xD Contusion of left knee, subseque nt encounter Tu Lopez P.T. 12/28/2019 S80.02xD Contusion of left knee, subseque nt encounter Tu Lopez P.T. 12/21/2019 S80.02xD Contusion of left knee, subseque nt encounter Cleo Maher, [facility] 12/19/2019 S80.02xD Contusion of left knee, subseque nt encounter Cleo Cariaspa, [facility] 12/13/2019 S80.02xD Contusion of left knee, subseque nt encounter Tu Lopez P.T. 12/11/2019 S80.02xD Contusion of left knee, subseque nt encounter Tu Lopez P.T. 12/07/2019 S80.02xD Contusion of left knee, subseque nt encounter Cleo Cariaspa, [facility] 12/05/2019 S80.02xD Contusion of left knee, subseque nt encounter Cleo Cariaspa, [facility] 12/01/2019 S80.02xD Contusion of left knee, subseque nt encounter KEREN Samson 11/29/2019 S80.02xD Contusion of left knee, subseque nt encounter KEREN Samson Plan of Treatment No Information Available Functional Status Description No Information Available Mental Status Description No Information Available Referrals Refer to Dr Reason for Referral Status Appt Date Kishan Patel MD PT LT KNEE WRITTEN AUTH PASS ED TO TRIAGE THEN PT DEPT. LS 05/03/20 PER ESTELLE OK TO FINISH THE REST. ISHMAEL Created [address] [place] [phone] Kevin Milian MD PT- LT KNEE WRITTEN AUTH PASSED TOTRIAGE THEN PT DEPT. Created [address] [place] [phone] Tu Lopez RPT PT- LT KNEE OK TO HEATH 2ND SE T. PASSED TO TRIAGE THEN PT DEPT. Created [address] [place], [place] [id number] [place] [address] [phone]
--- OUTSIDE RECORDS SUMMARY | 2020-07-10 08:12 | CCD | Continuity of Care Document ---
Author Author Cleo MILLER PA Organization Unknown Address [address] [place] [address] [place] [address] Phone [phone] Care Team Providers Care Desk Monitor Name Role Phone Minh Campos DO AUTM [phone] Herbret Roach MD AUTM [phone] Problems Description No Information Available Social History Type Date Description Comments Sex Unknown Tobacco Use Start: Unknown End: Unknown Quit 2006 ETOH Use Denies alcohol use Tobacco Use Start: Unknown End: Unknown Patient is a former smoker Smoking Status Reviewed: 03/22/19 Patient is a former smoker Allergies, Adverse Reactions, Alerts Description No Known Drug Allergies Medications Active Medications SIG Qnty Indications Ordering Provide r Date Sertraline HCL 50mg Tablets Unknown Vitamin D (Ergocalciferol) Unknown Vitamin B Unknown History Medications No Active Medications Unknown 02/2021 - 07/03/2020 Immunizations Description No Information Available Vital Signs Date Vital Result Comment 07/03/2020 4:39pm BP Systolic 148 mmHg BP Diastolic 73 mmHg Heart Rate 92 /min Respiratory Rate 13 /min O2 % BldC Oximetry 98 % Body Temperature 98.7 F Weight 245.00 lb Height 63 inches 5'3" BMI (Body Mass Index) 43.4 kg/m2 03/22/2019 3:45pm BP Systolic 158 mmHg BP Diastolic 95 mmHg Heart Rate 103 /min Respiratory Rate 20 /min O2 % BldC Oximetry 98 % Body Temperature 98.7 F Weight 260.00 lb Height 63 inches 5'3" BMI (Body Mass Index) 46.1 kg/m2 Pain Level 2 Results Description No Information Available Procedures Description No Information Available Medical Devices Description No Information Available Encounters Type Date Location Provider Dx Diagnosis Office Visit 07/03/2020 3:50p Main Office ANABEL Huff R21 Rash and other nonspecific skin eruption Assessments Date Code Description Provider 07/03/2020 R21 Rash and other nonspecific skin eruption ANABEL Huff Plan of Treatment 07/03/2020 - ANABEL Huff* R21 Rash and other nonspecific skin eruption * Comments:* though not able to identify cause for sure, does not appear to be contagious type of rash and is improving so reassured. consider topical benadryl for itch if needed but she feels this will be fine. keep skin healthy, moisturized, return or seek medical care other if worsens or recur * All * New Medication:* No Active Medications - Functional Status Description No Information Available Mental Status Description No Information Available Referrals Description No Information Available
--- OUTSIDE RECORDS SUMMARY | 2020-07-10 08:12 | CCD | Continuity of Care Document ---
Author Author Cleo MAHER [facility] Organization Unknown Address [address] [place] [id number] Phone [phone] Problems Description No Information Available Social History Type Date Description Comments Sex Unknown Allergies, Adverse Reactions, Alerts Description No Information Available Medications Description No Information Available Immunizations Description No Information Available Vital Signs Description No Information Available Results Description No Information Available Procedures Date Code Description Status 05/15/2020 15841 Therapeutic Procedure, Each 15 M inutes Completed 05/15/2020 11724 Ultrasound, Each 15 Min, Constan t Attendance Completed 05/10/2020 25979 Therapeutic Procedure, Each 15 M inutes Completed 05/10/2020 74578 Ultrasound, Each 15 Min, Constan t Attendance Completed 05/10/2020 09187 Hot Or Cold Packs Completed 05/06/2020 43539 Therapeutic Procedure, Each 15 M inutes Completed 05/06/2020 14825 Ultrasound, Each 15 Min, Constan t Attendance Completed 05/06/2020 68760 Hot Or Cold Packs Completed 04/12/2020 18014 Therapeutic Procedure, Each 15 M inutes Completed 04/12/2020 66462 Therapeutic Procedure, Each 15 M inutes Completed 04/12/2020 85288 Ultrasound, Each 15 Min, Constan t Attendance Completed 04/09/2020 09577 Ultrasound, Each 15 Min, Constan t Attendance Completed 04/09/2020 20466 Therapeutic Procedure, Each 15 M inutes Completed 04/09/2020 12249 Therapeutic Procedure, Each 15 M inutes Completed 04/04/2020 65493 Therapeutic Procedure, Each 15 M inutes Completed 04/04/2020 25981 Ultrasound, Each 15 Min, Constan t Attendance Completed 04/02/2020 70413 Therapeutic Procedure, Each 15 M inutes Completed 04/02/2020 44834 Ultrasound, Each 15 Min, Constan t Attendance Completed 03/28/2020 92996 Therapeutic Procedure, Each 15 M inutes Completed 03/28/2020 49742 Ultrasound, Each 15 Min, Constan t Attendance Completed 03/28/2020 22870 Hot Or Cold Packs Completed 03/26/2020 71080 Manual Therapy Each 15 Minutes C ompleted 03/26/2020 06804 Therapeutic Procedure, Each 15 M inutes Completed 03/26/2020 11596 Hot Or Cold Packs Completed 03/20/2020 91847 Hot Or Cold Packs Completed 03/20/2020 56843 Therapeutic Procedure, Each 15 M inutes Completed 03/20/2020 39102 Manual Therapy Each 15 Minutes C ompleted 03/20/2020 95984 Re-Eval Of PT Establ ished Plan Of Care 20Mins Face To Face PT/Fam Completed 03/18/2020 90256 Therapeutic Procedure, Each 15 M inutes Completed 03/18/2020 14891 Therapeutic Procedure, Each 15 M inutes Completed 03/18/2020 26850 Hot Or Cold Packs Completed 03/13/2020 20274 Therapeutic Procedure, Each 15 M inutes Completed 03/13/2020 98791 Therapeutic Procedure, Each 15 M inutes Completed 03/11/2020 19594 Therapeutic Procedure, Each 15 M inutes Completed 03/11/2020 63597 Therapeutic Procedure, Each 15 M inutes Completed 03/11/2020 47203 Hot Or Cold Packs Completed 03/05/2020 00165 Therapeutic Procedure, Each 15 M inutes Completed 03/05/2020 90274 Therapeutic Procedure, Each 15 M inutes Completed 02/28/2020 65247 Therapeutic Procedure, Each 15 M inutes Completed 02/28/2020 16184 Therapeutic Procedure, Each 15 M inutes Completed 02/26/2020 65390 Therapeutic Procedure, Each 15 M inutes Completed 02/26/2020 10786 Therapeutic Procedure, Each 15 M inutes Completed 02/23/2020 18994 Therapeutic Procedure, Each 15 M inutes Completed 02/21/2020 91906 Therapeutic Procedure, Each 15 M inutes Completed 02/21/2020 58941 Therapeutic Procedure, Each 15 M inutes Completed 02/21/2020 00735 Therapeutic Procedure, Each 15 M inutes Completed 02/15/2020 61401 Therapeutic Procedure, Each 15 M inutes Completed 02/15/2020 67689 Therapeutic Procedure, Each 15 M inutes Completed 02/13/2020 62337 Therapeutic Procedure, Each 15 M inutes Completed 02/13/2020 58736 Therapeutic Procedure, Each 15 M inutes Completed 02/08/2020 87096 Therapeutic Procedure, Each 15 M inutes Completed 02/08/2020 59731 Therapeutic Procedure, Each 15 M inutes Completed 02/06/2020 14907 Therapeutic Procedure, Each 15 M inutes Completed 02/06/2020 03349 Therapeutic Procedure, Each 15 M inutes Completed 02/06/2020 46041 Hot Or Cold Packs Completed 01/18/2020 67270 Therapeutic Procedure, Each 15 M inutes Completed 01/18/2020 59605 Therapeutic Procedure, Each 15 M inutes Completed 01/18/2020 05519 Hot Or Cold Packs Completed 01/16/2020 07460 Therapeutic Procedure, Each 15 M inutes Completed 01/16/2020 10133 Therapeutic Procedure, Each 15 M inutes Completed 01/11/2020 74684 Hot Or Cold Packs Completed 01/11/2020 39733 Therapeutic Procedure, Each 15 M inutes Completed 01/11/2020 30045 Therapeutic Procedure, Each 15 M inutes Completed 01/09/2020 96550 Therapeutic Procedure, Each 15 M inutes Completed 01/09/2020 59417 Therapeutic Procedure, Each 15 M inutes Completed 01/09/2020 03619 Hot Or Cold Packs Completed 01/03/2020 57551 Therapeutic Procedure, Each 15 M inutes Completed 01/03/2020 01744 Therapeutic Procedure, Each 15 M inutes Completed 01/03/2020 50826 Hot Or Cold Packs Completed 01/01/2020 28728 Therapeutic Procedure, Each 15 M inutes Completed 01/01/2020 13347 Hot Or Cold Packs Completed 12/28/2019 21653 Therapeutic Procedure, Each 15 M inutes Completed 12/28/2019 57913 Hot Or Cold Packs Completed 12/21/2019 44656 Hot Or Cold Packs Completed 12/21/2019 44799 Therapeutic Procedure, Each 15 M inutes Completed 12/19/2019 74285 Therapeutic Procedure, Each 15 M inutes Completed 12/19/2019 44331 Therapeutic Procedure, Each 15 M inutes Completed 12/19/2019 52318 Hot Or Cold Packs Completed 12/13/2019 60666 Therapeutic Procedure, Each 15 M inutes Completed 12/13/2019 68413 Therapeutic Procedure, Each 15 M inutes Completed 12/13/2019 52727 Therapeutic Procedure, Each 15 M inutes Completed 12/13/2019 29141 Hot Or Cold Packs Completed 12/11/2019 77893 Therapeutic Procedure, Each 15 M inutes Completed 12/11/2019 13392 Therapeutic Procedure, Each 15 M inutes Completed 12/11/2019 33365 Hot Or Cold Packs Completed 12/07/2019 46120 Hot Or Cold Packs Completed 12/07/2019 76438 Therapeutic Procedure, Each 15 M inutes Completed 12/07/2019 35323 Therapeutic Procedure, Each 15 M inutes Completed 12/07/2019 30538 Re-Eval Of PT Establ ished Plan Of Care 20Mins Face To Face PT/Fam Completed 12/05/2019 84713 Therapeutic Procedure, Each 15 M inutes Completed 12/05/2019 60180 Therapeutic Procedure, Each 15 M inutes Completed 12/05/2019 69382 Hot Or Cold Packs Completed 12/01/2019 03088 Therapeutic Procedure, Each 15 M inutes Completed 12/01/2019 23790 Therapeutic Procedure, Each 15 M inutes Completed 12/01/2019 45853 Hot Or Cold Packs Completed 11/29/2019 86695 Manual Therapy Each 15 Minutes C ompleted 11/29/2019 59250 Therapeutic Procedure, Each 15 M inutes Completed 11/29/2019 50645 Therapeutic Procedure, Each 15 M inutes Completed 11/29/2019 80327 Hot Or Cold Packs Completed Medical Devices Description No Information Available Encounters Description No Information Available Assessments Date Code Description Provider 05/15/2020 S83.242D Other tear of medial meniscus, current injury, left knee, subsequent encounter Tu Lopez P.T. 05/10/2020 S83.242D Other tear of medial meniscus, current injury, left knee, subsequent encounter Tu Lopez P.T. 05/06/2020 S83.242D Other tear of medial meniscus, current injury, left knee, subsequent encounter [facility] 04/12/2020 S83.242D Other tear of medial meniscus, current injury, left knee, subsequent encounter Cleo Maher, [facility] 04/09/2020 S83.242D Other tear of medial meniscus, current injury, left knee, subsequent encounter Cleo Maher, [facility] 04/04/2020 S83.242D Other tear of medial meniscus, current injury, left knee, subsequent encounter Cleo Maher [facility] 04/02/2020 S83.242D Other tear of medial meniscus, current injury, left knee, subsequent encounter Cleo Maher, [facility] 03/28/2020 S83.242D Other tear of medial meniscus, current injury, left knee, subsequent encounter Cleo Maher, [facility] 03/26/2020 S83.242D Other tear of medial meniscus, current injury, left knee, subsequent encounter Cleo Maher, [facility] 03/20/2020 S83.242D Other tear of medial meniscus, current injury, left knee, subsequent encounter Cleo Maher, [facility] 03/18/2020 S83.242D Other tear of medial meniscus, current injury, left knee, subsequent encounter Cleo Maher, [facility] 03/13/2020 S83.242D Other tear of medial meniscus, current injury, left knee, subsequent encounter Cleo Maher, [facility] 03/11/2020 S83.242D Other tear of medial meniscus, current injury, left knee, subsequent encounter Cleo Maher, [facility] 03/05/2020 S83.242D Other tear of medial meniscus, current injury, left knee, subsequent encounter Cleo Maher, [facility] 02/28/2020 S80.02xD Contusion of left knee, subseque nt encounter Cleo Maher, [facility] 02/26/2020 S80.02xD Contusion of left knee, subseque nt encounter Juanjose Holder, PT, DPT 02/23/2020 S80.02xD Contusion of left knee, subseque nt encounter Juanjose Holder, PT, DPT 02/21/2020 S80.02xD Contusion of left knee, subseque nt encounter Tu Lopez P.T. 02/15/2020 S80.02xD Contusion of left knee, subseque nt encounter Cleo Maher, [facility] 02/13/2020 S80.02xD Contusion of left knee, subseque nt encounter Cleo Maher, [facility] 02/08/2020 S80.02xD Contusion of left knee, subseque nt encounter Cleo Maher, [facility] 02/06/2020 S80.02xD Contusion of left knee, subseque nt encounter Cleo Maher, [facility] 01/18/2020 S80.02xD Contusion of left knee, subseque nt encounter Cleo Cariaspa, [facility] 01/16/2020 S80.02xD Contusion of left knee, subseque nt encounter Cleo Maher, [facility] 01/11/2020 S80.02xD Contusion of left knee, subseque nt encounter Cleo Maher, [facility] 01/09/2020 S80.02xD Contusion of left knee, subseque nt encounter Cleo Maher, [facility] 01/03/2020 S80.02xD Contusion of left knee, subseque nt encounter Cleo Maher, [facility] 01/01/2020 S80.02xD Contusion of left knee, subseque nt encounter Tu Lopez P.T. 12/28/2019 S80.02xD Contusion of left knee, subseque nt encounter Tu Lopez P.T. 12/21/2019 S80.02xD Contusion of left knee, subseque nt encounter Cleo Maher, [facility] 12/19/2019 S80.02xD Contusion of left knee, subseque nt encounter Cleo Maher, [facility] 12/13/2019 S80.02xD Contusion of left knee, subseque nt encounter Tu Lopez P.T. 12/11/2019 S80.02xD Contusion of left knee, subseque nt encounter Tu Lopez P.T. 12/07/2019 S80.02xD Contusion of left knee, subseque nt encounter Cleo Maher, [facility] 12/05/2019 S80.02xD Contusion of left knee, subseque nt encounter Cleo Cariaspa, [facility] 12/01/2019 S80.02xD Contusion of left knee, subseque nt encounter Cleo Cariaspa, [facility] 11/29/2019 S80.02xD Contusion of left knee, subseque nt encounter Cleo Maher, [facility] Plan of Treatment No Information Available Functional Status Description No Information Available Mental Status Description No Information Available Referrals Refer to Dr Reason for Referral Status Appt Date Kishan Patel MD PT LT KNEE WRITTEN AUTH PASS ED TO TRIAGE THEN PT DEPT. [facility] 05/03/20 PER ESTELLE OK TO FINISH THE REST. [facility] Created [address] [place] [phone] Kevin Milian MD PT- LT KNEE WRITTEN AUTH PASSED TOTRIAGE THEN PT DEPT. [facility] Created [address] [place] [phone] Tu Lopez RPT PT- LT KNEE OK TO HEATH 2ND SE T. PASSED TO TRIAGE THEN PT DEPT. [facility] Created [address] [place], [place] [id number] [place] [address] [phone]
--- OUTSIDE RECORDS SUMMARY | 2020-07-10 08:12 | CCD | Continuity of Care Document ---
Author Author Cleo MILLER [place] Organization Unknown Address [address] [place] [address] [place] [address] Phone [phone] Care Team Providers Care Water Truck Driver Name Role Phone Minh Campos DO AUTM [phone] Herbert Roach MD AUTM [phone] Problems Description No Information Available Social History [...]
--- OUTSIDE RECORDS SUMMARY | 2020-07-10 08:12 | CCD | Continuity of Care Document ---
Author Author Cleo MAHER [facility] Organization Unknown Address [address] [place] [address] Phone [phone] Problems Description No Information Available Social History Type Date Description Comments Sex Unknown Allergies, Adverse Reactions, Alerts Description No Information Available Medications Description No Information Available Immunizations Description No Information Available Vital Signs Description No Information Available Results Description No Information Available Procedures Date Code Description Status 05/22/2020 96882 Therapeutic Procedure, Each 15 M inutes Completed 05/22/2020 90256 Ultrasound, Each 15 Min, Constan t Attendance Completed 05/15/2020 04539 Therapeutic Procedure, Each 15 M inutes Completed 05/15/2020 04336 Ultrasound, Each 15 Min, Constan t Attendance Completed 05/10/2020 61870 Therapeutic Procedure, Each 15 M inutes Completed 05/10/2020 26562 Ultrasound, Each 15 Min, Constan t Attendance Completed 05/10/2020 54344 Hot Or Cold Packs Completed 05/06/2020 53538 Therapeutic Procedure, Each 15 M inutes Completed 05/06/2020 10153 Ultrasound, Each 15 Min, Constan t Attendance Completed 05/06/2020 54262 Hot Or Cold Packs Completed 04/12/2020 18942 Ultrasound, Each 15 Min, Constan t Attendance Completed 04/12/2020 56025 Therapeutic Procedure, Each 15 M inutes Completed 04/12/2020 01191 Therapeutic Procedure, Each 15 M inutes Completed 04/09/2020 61005 Therapeutic Procedure, Each 15 M inutes Completed 04/09/2020 14743 Therapeutic Procedure, Each 15 M inutes Completed 04/09/2020 49001 Ultrasound, Each 15 Min, Constan t Attendance Completed 04/04/2020 88167 Therapeutic Procedure, Each 15 M inutes Completed 04/04/2020 56360 Ultrasound, Each 15 Min, Constan t Attendance Completed 04/02/2020 29504 Therapeutic Procedure, Each 15 M inutes Completed 04/02/2020 21172 Ultrasound, Each 15 Min, Constan t Attendance Completed 03/28/2020 39518 Therapeutic Procedure, Each 15 M inutes Completed 03/28/2020 21427 Ultrasound, Each 15 Min, Constan t Attendance Completed 03/28/2020 18246 Hot Or Cold Packs Completed 03/26/2020 20396 Hot Or Cold Packs Completed 03/26/2020 82631 Therapeutic Procedure, Each 15 M inutes Completed 03/26/2020 76988 Manual Therapy Each 15 Minutes C ompleted 03/20/2020 29001 Re-Eval Of PT Establ ished Plan Of Care 20Mins Face To Face PT/Fam Completed 03/20/2020 75195 Manual Therapy Each 15 Minutes C ompleted 03/20/2020 70924 Therapeutic Procedure, Each 15 M inutes Completed 03/20/2020 71105 Hot Or Cold Packs Completed 03/18/2020 73527 Therapeutic Procedure, Each 15 M inutes Completed 03/18/2020 23071 Therapeutic Procedure, Each 15 M inutes Completed 03/18/2020 64973 Hot Or Cold Packs Completed 03/13/2020 95297 Therapeutic Procedure, Each 15 M inutes Completed 03/13/2020 22955 Therapeutic Procedure, Each 15 M inutes Completed 03/11/2020 47966 Hot Or Cold Packs Completed 03/11/2020 63965 Therapeutic Procedure, Each 15 M inutes Completed 03/11/2020 03907 Therapeutic Procedure, Each 15 M inutes Completed 03/05/2020 34607 Therapeutic Procedure, Each 15 M inutes Completed 03/05/2020 18215 Therapeutic Procedure, Each 15 M inutes Completed 02/28/2020 07046 Therapeutic Procedure, Each 15 M inutes Completed 02/28/2020 58926 Therapeutic Procedure, Each 15 M inutes Completed 02/26/2020 49530 Therapeutic Procedure, Each 15 M inutes Completed 02/26/2020 77270 Therapeutic Procedure, Each 15 M inutes Completed 02/23/2020 07260 Therapeutic Procedure, Each 15 M inutes Completed 02/21/2020 44859 Therapeutic Procedure, Each 15 M inutes Completed 02/21/2020 35509 Therapeutic Procedure, Each 15 M inutes Completed 02/21/2020 55928 Therapeutic Procedure, Each 15 M inutes Completed 02/15/2020 60670 Therapeutic Procedure, Each 15 M inutes Completed 02/15/2020 90296 Therapeutic Procedure, Each 15 M inutes Completed 02/13/2020 37131 Therapeutic Procedure, Each 15 M inutes Completed 02/13/2020 35915 Therapeutic Procedure, Each 15 M inutes Completed 02/08/2020 07181 Therapeutic Procedure, Each 15 M inutes Completed 02/08/2020 68278 Therapeutic Procedure, Each 15 M inutes Completed 02/06/2020 14865 Therapeutic Procedure, Each 15 M inutes Completed 02/06/2020 18037 Therapeutic Procedure, Each 15 M inutes Completed 02/06/2020 12270 Hot Or Cold Packs Completed 01/18/2020 46999 Therapeutic Procedure, Each 15 M inutes Completed 01/18/2020 79227 Therapeutic Procedure, Each 15 M inutes Completed 01/18/2020 02509 Hot Or Cold Packs Completed 01/16/2020 78703 Therapeutic Procedure, Each 15 M inutes Completed 01/16/2020 43979 Therapeutic Procedure, Each 15 M inutes Completed 01/11/2020 77001 Hot Or Cold Packs Completed 01/11/2020 33437 Therapeutic Procedure, Each 15 M inutes Completed 01/11/2020 18478 Therapeutic Procedure, Each 15 M inutes Completed 01/09/2020 75057 Therapeutic Procedure, Each 15 M inutes Completed 01/09/2020 03516 Therapeutic Procedure, Each 15 M inutes Completed 01/09/2020 78777 Hot Or Cold Packs Completed 01/03/2020 91556 Therapeutic Procedure, Each 15 M inutes Completed 01/03/2020 30990 Therapeutic Procedure, Each 15 M inutes Completed 01/03/2020 72250 Hot Or Cold Packs Completed 01/01/2020 74564 Therapeutic Procedure, Each 15 M inutes Completed 01/01/2020 91502 Hot Or Cold Packs Completed 12/28/2019 78247 Therapeutic Procedure, Each 15 M inutes Completed 12/28/2019 29526 Hot Or Cold Packs Completed 12/21/2019 11523 Hot Or Cold Packs Completed 12/21/2019 64748 Therapeutic Procedure, Each 15 M inutes Completed 12/19/2019 82775 Therapeutic Procedure, Each 15 M inutes Completed 12/19/2019 89555 Therapeutic Procedure, Each 15 M inutes Completed 12/19/2019 35011 Hot Or Cold Packs Completed 12/13/2019 44906 Therapeutic Procedure, Each 15 M inutes Completed 12/13/2019 95338 Therapeutic Procedure, Each 15 M inutes Completed 12/13/2019 28085 Therapeutic Procedure, Each 15 M inutes Completed 12/13/2019 89471 Hot Or Cold Packs Completed 12/11/2019 86333 Therapeutic Procedure, Each 15 M inutes Completed 12/11/2019 77377 Therapeutic Procedure, Each 15 M inutes Completed 12/11/2019 55928 Hot Or Cold Packs Completed 12/07/2019 76275 Hot Or Cold Packs Completed 12/07/2019 01252 Therapeutic Procedure, Each 15 M inutes Completed 12/07/2019 29867 Therapeutic Procedure, Each 15 M inutes Completed 12/07/2019 17776 Re-Eval Of PT Establ ished Plan Of Care 20Mins Face To Face PT/Fam Completed 12/05/2019 99059 Therapeutic Procedure, Each 15 M inutes Completed 12/05/2019 08605 Therapeutic Procedure, Each 15 M inutes Completed 12/05/2019 20710 Hot Or Cold Packs Completed 12/01/2019 41402 Therapeutic Procedure, Each 15 M inutes Completed 12/01/2019 77854 Therapeutic Procedure, Each 15 M inutes Completed 12/01/2019 56365 Hot Or Cold Packs Completed 11/29/2019 86038 Manual Therapy Each 15 Minutes C ompleted 11/29/2019 43132 Therapeutic Procedure, Each 15 M inutes Completed 11/29/2019 89731 Therapeutic Procedure, Each 15 M inutes Completed 11/29/2019 64559 Hot Or Cold Packs Completed Medical Devices Description No Information Available Encounters Description No Information Available Assessments Date Code Description Provider 05/22/2020 S83.242D Other tear of medial meniscus, current injury, left knee, subsequent encounter Cleo Maher, [facility] 05/15/2020 S83.242D Other tear of medial meniscus, current injury, left knee, subsequent encounter Tu Lopez P.TSemaj 05/10/2020 S83.242D Other tear of medial meniscus, current injury, left knee, subsequent encounter Tu MataT. 05/06/2020 S83.242D Other tear of medial meniscus, current injury, left knee, subsequent encounter Cleo Maher, [facility] 04/12/2020 S83.242D Other tear of medial meniscus, current injury, left knee, subsequent encounter Cleo Maher, [facility] 04/09/2020 S83.242D Other tear of medial meniscus, current injury, left knee, subsequent encounter Cleo Maher, [facility] 04/04/2020 S83.242D Other tear of medial meniscus, current injury, left knee, subsequent encounter Cleo Maher, [facility] 04/02/2020 S83.242D Other tear of medial meniscus, current injury, left knee, subsequent encounter Cleo Maher, [facility] 03/28/2020 S83.242D Other tear of medial meniscus, current injury, left knee, subsequent encounter Cleo Maher, [facility] 03/26/2020 S83.242D Other tear of medial meniscus, current injury, left knee, subsequent encounter Cleo Maher, [facility] 03/20/2020 S83.242D Other tear of medial meniscus, current injury, left knee, subsequent encounter Cleo Maher, [facility] 03/18/2020 S83.242D Other tear of medial meniscus, current injury, left knee, subsequent encounter Cleo Maher, [facility] 03/13/2020 S83.242D Other tear of medial meniscus, current injury, left knee, subsequent encounter Cleo Maher, [facility] 03/11/2020 S83.242D Other tear of medial meniscus, current injury, left knee, subsequent encounter Cleo Maher, [facility] 03/05/2020 S83.242D Other tear of medial meniscus, current injury, left knee, subsequent encounter Cleo Maher, [facility] 02/28/2020 S80.02xD Contusion of left knee, subseque nt encounter Cleo Maher, [facility] 02/26/2020 S80.02xD Contusion of left knee, subseque nt encounter Juanjose Holder, PT, DPT 02/23/2020 S80.02xD Contusion of left knee, subseque nt encounter Juanjose Holder, PT, DPT 02/21/2020 S80.02xD Contusion of left knee, subseque nt encounter Tu Lopez P.T. 02/15/2020 S80.02xD Contusion of left knee, subseque nt encounter Cleo Cariasarnol, [facility] 02/13/2020 S80.02xD Contusion of left knee, subseque nt encounter Cleo Maher, [facility] 02/08/2020 S80.02xD Contusion of left knee, subseque nt encounter Cleo Maher, [facility] 02/06/2020 S80.02xD Contusion of left knee, subseque nt encounter Cleo Maher, [facility] 01/18/2020 S80.02xD Contusion of left knee, subseque nt encounter Cleo Cariaspa, [facility] 01/16/2020 S80.02xD Contusion of left knee, subseque nt encounter Cleo Maher, [facility] 01/11/2020 S80.02xD Contusion of left knee, subseque nt encounter Cleo Maher, [facility] 01/09/2020 S80.02xD Contusion of left knee, subseque nt encounter Cleo Maher, [facility] 01/03/2020 S80.02xD Contusion of left knee, subseque nt encounter Cleo Maher, [facility] 01/01/2020 S80.02xD Contusion of left knee, subseque nt encounter Tu Lopez P.T. 12/28/2019 S80.02xD Contusion of left knee, subseque nt encounter Tu Lopez P.T. 12/21/2019 S80.02xD Contusion of left knee, subseque nt encounter Cleo Maher, [facility] 12/19/2019 S80.02xD Contusion of left knee, subseque nt encounter Cleo Maher, [facility] 12/13/2019 S80.02xD Contusion of left knee, subseque nt encounter Tu Lopez P.T. 12/11/2019 S80.02xD Contusion of left knee, subseque nt encounter Tu Lopez P.T. 12/07/2019 S80.02xD Contusion of left knee, subseque nt encounter Cleo Cariaspa, [facility] 12/05/2019 S80.02xD Contusion of left knee, subseque nt encounter Cleo Cariaspa, [facility] 12/01/2019 S80.02xD Contusion of left knee, subseque nt encounter JONNIE SamsonT 11/29/2019 S80.02xD Contusion of left knee, subseque [...] ESTELLE OK TO FINISH THE REST. Created [address] [place], [place] [address] [phone] Kevin Milian MD PT- LT KNEE WRITTEN AUTH PASSED TOTRIAGE THEN PT DEPT. Created [address] [place] [id number] [phone] Tu Lopez RPT PT- LT KNEE OK TO HEATH 2ND SE T. PASSED TO TRIAGE THEN PT DEPT. Created [address] [place], [place] [id number] [place] [id number] [phone]
--- OUTSIDE RECORDS SUMMARY | 2020-07-10 08:12 | CCD ---
Author Author [facility] Organization [facility] Address Unknown Phone Unavailable Care Team Providers Care Manager Skilled Name Role Phone PaolaJem bravoina Unavailable PROBLEMS Type Condition ICD9-CM Code [id number] Code Onset Dates Condition S tatus SNOMED Code Notes Problem Daytime somnolence R40.0 Active 716958196472 Problem Gastroesophageal reflux disease without esophagitis K21.9 Active 694302441 Problem Stress incontinence N39.3 Active 54814000 Problem Melanocytic nevi of left upper limb, including shoulder D22.62 Active 990162292 Problem Anxiety disorder, unspecified F41.9 Active 19 2910223 Problem Depression F32.9 Active 35771309 Problem Hyperlipidemia E78.5 Active 24872755 Problem Obesity (BMI 30-39.9) E66.9 Active 636507702 Problem Supervision of elderly multigravida, unspecified trimester O09.529 Active 836401721 Problem Melanocytic nevi of face D22.30 Active 7008062 04 Problem Melasma L81.1 Active 68644156 ALLERGIES No Known Allergies ENCOUNTERS from 1977 to 2020-06-08 Encounter Location Date Provider Diagnosis [facility] [address] [place] [address] May, Jem Roach Gastroesophageal reflux disease without esophagitis K21.9 IMMUNIZATIONS Vaccine Route Administration Date Status TDAP 0.5mL (Boostrix) IM Intramuscular July 27, 2019 Administe red TDAP Unknown October 05, 2014 Administered Influenza (6mo & up) Fluzone Unknown Jul 07, 2017 Adm inistered Influenza (6mo & up) Fluzone IM Intramuscular Apr 06, 2014 Ad ministered Influenza (6mo & up) Fluzone IM Intramuscular Jun 07, 2012 Ad ministered SOCIAL HISTORY Tobacco Use: Social History Observation Description Date Details (start date - stop date) Former Smoker Sex Assigned At : Social History Observation Description Sex Assigned At Unknown Audit Question Answer Notes Total Score: 2 Interpretation: Alcohol Education Sexual Hx: Question Answer Notes Had sex in the last 12 months (vaginal, oral, or anal)? Yes Have you ever had an STD? No with Men only Use protection? No Drug and Alcohol Question Answer Notes Total Score: 0 Interpretation: No problems reported Alcohol Screening: Question Answer Notes Did you have a drink containing alcohol in the past year? No Points 0 Interpretation Negative BMI Care Goal Follow-Up Question Answer Notes Above Normal BMI Follow-Up Dietary management educatio n, guidance, and counseling Tobacco Use: Question Answer Notes Are you a: former smoker How long has it been since you last smoked? 5-10 years REASON FOR REFERRAL No Information VITAL SIGNS No information MEDICATIONS Medication SIG (Take, Route, Frequency, Duration) Notes Start Da te End Date Status Ranitidine HCl 150 MG 1 capsule at bedtime Orally Daily for 90 day(s) Not-Taking Vitamin D 2000 UNIT 1 tablet Orally Mar, Not-Taking Phenazopyridine HCl 200 MG TK 1 T PO TID FOR 2 DAYS Oral for 2 Not-Taking Famotidine 20 MG 1 tablet at bedtime as needed Orally Onc e a day for 90 day(s) Feb, Active Zoloft 50 MG 1 tablet Orally Once a day for 90 day(s) 12 D 2018 Active Zoloft 50 MG 1 tablet Orally Once a day for 90 day(s) 23 O 2019 Active Vitamin 27-0.8 MG 1 tablet Orally Once a day Not-Taking PROCEDURES No Information RESULTS No Results REASON FOR VISIT refill MEDICAL (GENERAL) HISTORY Type Description Date Medical History Anxiety Medical History Hyperlipidemia Medical History Obesity Medical History Vitamin D Deficiency Medical History Family H/O Breast Cancer at 33 Medical History 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 - Elevated Breast Cancer risk - need clinical breast exam every 6 - 12 mo and breast MRI annually - per Francheska Dai [facility] Surgical History D and C 2006 Hospitalization History Child 2020 Goals Section No Information Health Concerns No Information MEDICAL EQUIPMENT No Information MENTAL STATUS No Information FUNCTIONAL STATUS No Information ASSESSMENTS Encounter Date Diagnosis Assessment Notes Treatment Notes Treatm ent Clinical Notes May, Gastroesophageal reflux dise ase without esophagitis (ICD-10 - K21.9) PLAN OF TREATMENT Medication Medication Name Sig Start Date Stop Date Famotidine 20 MG 1 tablet at bedtime as needed Orally Onc e a day for 90 day(s) Feb, Zoloft 50 MG 1 tablet Orally Once a day for 90 day(s) Apr, Zoloft 50 MG 1 tablet Orally Once a day for 90 day(s) Feb, Insurance Providers Payer Name Payer Address Payer Phone Insured Name Patient Relati onship to Insured Coverage Start Date Coverage End Date [facility] [id number] [facility] [address] SAMARIA NICK [id number]
--- OUTSIDE RECORDS SUMMARY | 2020-07-10 08:13 | CCD ---
Author Author [facility] Organization [facility] Address Unknown Phone Unavailable Care Team Providers Care Roll Cutting Operator Name Role Phone Stiven Minh Unavailable PROBLEMS Type Condition ICD9-CM Code EFU03-DS Code Onset Dates Condition S tatus SNOMED Code Notes Problem Daytime somnolence R40.0 Active 782966652025 Problem Gastroesophageal reflux disease without esophagitis K21.9 Active 311751811 Problem Stress incontinence N39.3 Active 09658175 Problem Melanocytic nevi of left upper limb, including shoulder D22.62 Active 702218832 Problem Anxiety disorder, unspecified F41.9 Active 19 7405705 Problem Depression F32.9 Active 76294196 Problem Hyperlipidemia E78.5 Active 42659921 Problem Obesity (BMI 30-39.9) E66.9 Active 328028233 Problem Supervision of elderly multigravida, unspecified trimester O09.529 Active 966781976 Problem Melanocytic nevi of face D22.30 Active 2918655 04 Problem Melasma L81.1 Active 23868588 ALLERGIES No Known Allergies ENCOUNTERS from 1977 to 2020-04-16 Encounter Location Date Provider Diagnosis [facility] [address] [place] [id number] Mar, Minh Saleem Depression F32.9 IMMUNIZATIONS Vaccine Route Administration Date Status TDAP [...] needed Orally Onc e a day for 30 day(s) Feb, Active Zoloft 50 MG 1 tablet Orally Once a day for 90 day(s) 12 D 2018 Active Zoloft 50 MG 1 tablet Orally Once a day for 90 day(s) 23 O 2019 Active Vitamin 27-0.8 MG 1 tablet Orally Once a day Not-Taking PROCEDURES No Information RESULTS No Results REASON FOR VISIT medication MEDICAL (GENERAL) HISTORY Type Description Date Medical History Anxiety Medical History Hyperlipidemia Medical History Obesity Medical History Vitamin D Deficiency Medical History Family H/O Breast Cancer at 33 Medical History 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 - Elevated Breast Cancer risk - need clinical breast exam every 6 - 12 mo and breast MRI annually - per Francheska Chewc [facility] Surgical History D and C 2006 Hospitalization History Child 2019 Goals Section No Information Health Concerns No Information MEDICAL EQUIPMENT No Information MENTAL STATUS No Information FUNCTIONAL STATUS No Information ASSESSMENTS Encounter Date Diagnosis Assessment Notes Treatment Notes Treatm ent Clinical Notes Mar, Depression (ICD-10 - F32.9) PLAN OF TREATMENT Medication Medication Name Sig Start Date Stop Date Famotidine 20 MG 1 tablet at bedtime as needed Orally Onc e a day for 30 day(s) Feb, Zoloft 50 MG 1 tablet Orally Once a day for 90 day(s) Apr, Zoloft 50 MG 1 tablet Orally Once a day for 90 day(s) Feb, Insurance Providers Payer Name Payer Address Payer Phone Insured Name Patient Relati onship to Insured Coverage Start Date Coverage End Date [facility] [id number] [facility] [address] SAMARIA OREILLY [id number]
--- OUTSIDE RECORDS SUMMARY | 2020-07-10 08:13 | CCD ---
Author Author [facility] Organization [facility] Address Unknown Phone Unavailable Care Team Providers Care [employer] Reader Name Role Phone LORENA, L DIO TAFE TEACHER Unavailable Unavailable LORENA, L DIO TAFE TEACHER Unavailable Unavailable LORENA, L DIO TAFE TEACHER Unavailable Unavailable LORENA, L DIO TAFE TEACHER Unavailable Unavailable LORENA, L DIO TAFE TEACHER Unavailable Unavailable LORENA, L DIO TAFE TEACHER Unavailable Unavailable LORENA, L DIO TAFE TEACHER Unavailable Unavailable LORENA, L DIO TAFE TEACHER Unavailable Unavailable LORENA, L DIO TAFE TEACHER Unavailable Unavailable LORENA, L DIO TAFE TEACHER Unavailable Unavailable LORENA, L DIO TAFE TEACHER Unavailable Unavailable LORENA, L DIO TAFE TEACHER Unavailable Unavailable LORENA, L DIO TAFE TEACHER Unavailable Unavailable LORENA, L DIO TAFE TEACHER Unavailable Unavailable LORENA, L DIO TAFE TEACHER Unavailable Unavailable LORENA, L DIO TAFE TEACHER Unavailable Unavailable LORENA, L DIO TAFE TEACHER Unavailable Unavailable LORENA, L DIO TAFE TEACHER Unavailable Unavailable LORENA, L DIO TAFE TEACHER Unavailable Unavailable LORENA, L DIO TAFE TEACHER Unavailable Unavailable LORENA, L DIO TAFE TEACHER Unavailable Unavailable LORNEA, L DIO TAFE TEACHER Unavailable Unavailable LORENA, L DIO TAFE TEACHER Unavailable Unavailable LORENA, L DIO TAFE TEACHER Unavailable Unavailable LORENA, L DIO TAFE TEACHER Unavailable Unavailable LORENA, L DIO TAFE TEACHER Unavailable Unavailable LORENA, L DIO TAFE TEACHER Unavailable Unavailable LORENA, L DIO TAFE TEACHER Unavailable Unavailable LORENA, L DIO TAFE TEACHER Unavailable Unavailable Mollison, Sabrina Amaral MD Unavailable Unavailable Mollison, Sabrina Amaral MD Unavailable Unavailable Mollison, Sabrina Amaral MD Unavailable Unavailable Mollison, Sabrina Amaral MD Unavailable Unavailable Mollison, Sabrina Amaral MD Unavailable Unavailable Mollison, Sabrina Amaral MD Unavailable Unavailable Mollison, Sabrina Amaral MD Unavailable Unavailable Mollison, Sabrina Amaral MD Unavailable Unavailable Mollison, Sabrina Amaral MD Unavailable Unavailable Mollison, Sabrina Amaral MD Unavailable Unavailable Mollison, Sabrina Amaral MD Unavailable Unavailable Mollison, Sabrina Amaral MD Unavailable Unavailable Mollison, Sabrina Amaral MD Unavailable Unavailable Mollison, Sabrina Amaral MD Unavailable Unavailable Mollison, Sabrina Amaral MD Unavailable Unavailable Mollison, Sabrina Amaral MD Unavailable Unavailable Mollison, Sabrina Amaral MD Unavailable Unavailable Mollison, Sabrina Amaral MD Unavailable Unavailable Mollison, Sabrina Amaral MD Unavailable Unavailable Mollison, Sabrina Amaral MD Unavailable Unavailable Mollison, Sabrina Amaral MD Unavailable Unavailable Mollison, Sabrina Amaral MD Unavailable Unavailable Mollison, Sabrina Amaral MD Unavailable Unavailable Mollison, Sabrina Amaral MD Unavailable Unavailable Mollison, Sabrina Amaral MD Unavailable Unavailable Ambrocio, Aura Shruthi PA Unavailable Unavailable Ambrocio, Aura Shruthi PA Unavailable Unavailable Ambrocio, Aura Shruthi PA Unavailable Unavailable Ambrocio, Aura Shruthi PA Unavailable Unavailable Ambrocio, Aura Shruthi PA Unavailable Unavailable Ambrocio, Aura Shruthi PA Unavailable Unavailable Ambrocio, Aura Shruthi PA Unavailable Unavailable Ambrocio, Aura Shruthi PA Unavailable Unavailable Ambrocio, Aura Shruthi PA Unavailable Unavailable Ambrocio, Aura Shruthi PA Unavailable Unavailable Re-disclosure Warning The records that you are about to access may contain information from federally-assisted alcohol or drug abuse programs. If such information is present, then the following federally mandated warning applies: This information has been disclosed to you from records protected by federal confidentiality rules (42 CFR part 2). The federal rules prohibit you from making any further disclosure of this information unless further disclosure is expressly permitted by the written consent of the person to whom it pertains or as otherwise permitted by 42 CFR part 2. A general authorization for the release of medical or other information is NOT sufficient for this purpose. The Federal rules restrict any use of the information to criminally investigate or prosecute any alcohol or drug abuse patient.The records that you are about to access may contain highly sensitive health information, the redisclosure of which is protected by Article 27-F of the [facility] Public Health law. If you continue you may have access to information: Regarding HIV / AIDS; Provided by facilities licensed or operated by the [facility] Office of Mental Health; or Provided by the [facility] Office for People With Developmental Disabilities. If such information is present, then the following [facility] mandated warning applies: This information has been disclosed to you from confidential records which are protected by state law. State law prohibits you from making any further disclosure of this information without the specific written consent of the person to whom it pertains, or as otherwise permitted by law. Any unauthorized further disclosure in violation of state law may result in a fine or long-term sentence or both. A general authorization for the release of medical or other information is NOT sufficient authorization for further disc losure. Family History Family Member Name Family Member Gender Family Member Status Date o f Status Description Data Source(s) Unknown Male Problem MEDENT ([facility] Unknown Male Problem MEDENT ([facility]) Encounters Encounter Providers Location Date Indications Data Source(s ) Office Visit Attender: Shruthi cruz 07/03/2020 02:50:00 PM EST MEDENT ([facility]) [place] [address] [address] 06/07/2020 12:00:00 AM EST eCW1 ([facility]) Outpatient Attender: Munir Ruff/Luanne/Juarez/Alondra betancur 04/26/2020 07:10:00 AM EST MEDENT ([facility] Unknown [address] [address] 04/15/2020 12:00:00 AM EST eCW1 ([facility]) [place] [address] [place] [address] 03/13/2020 12:00:00 AM EDT eCW1 ([facility]) [place] [address] [place] [address] 03/08/2020 12:00:00 AM EDT [facility]CW1 [facility] Outpatient Attender: Munir Ruff/[place]/Juarez/Re indl 02/29/2020 08:20:00 AM EDT MEDENT ([facility]) [place] [address] [place] [address] 02/27/2020 12:00:00 AM EDT eCW1 ([facility]) [place] [address] [place] [address] 02/20/2020 12:00:00 AM EDT eCW1 ([facility]) [facility] Dermatology [address] [place] [address] 02/13/2020 12:00:00 AM EDT eCW1 ([facility]) Outpatient Attender: Munir Ruff/[place]/Juarez/Re indl 01/08/2020 09:30:00 AM EDT MEDENT ([facility]) Outpatient Attender: Munir Ruff/[place]/Juarez/Re indl 12/11/2019 11:30:00 AM EDT MEDENT ([facility]) Outpatient Attender: Munir Ruff/[place]/Juarez/Re indl 11/06/2019 08:00:00 AM EDT MEDENT ([facility]) [place] [address] [place] [address] 11/03/2019 12:00:00 AM EDT eCW1 ([facility]) [facility] Breast [facility] [address] [place] [address] 10/03/2019 12:00:00 AM EDT eCW1 ([facility]) [facility] [address] [place] [address] 10/02/2019 12:00:00 AM EDT eCW1 ([facility]) [facility] Dermatology [address] [id number] 09/04/2019 12:00:00 AM EDT eCW1 ([facility]) Outpatient Referrer: DIO CARRILLO NP 08/29/2019 05:40:00 AM EDT [facility] [address] [place] [address] 08/25/2019 12:00:00 AM EDT eCW1 ([facility]) [facility] Women Center [address] [id number] 08/16/2019 12:00:00 AM EDT eCW1 ([facility]) [facility] [address] [place] [address] 08/10/2019 12:00:00 AM EDT eCW1 ([facility]) [facility] [address] [place] [address] 08/02/2019 12:00:00 AM EDT eCW1 ([facility]) [facility] [address] [place] [address] 07/28/2019 12:00:00 AM EST eCW1 ([facility]) [facility] [address] [place] [address] 07/27/2019 12:00:00 AM EST eCW1 ([facility]) [facility] [address] [place] [address] 07/24/2019 12:00:00 AM EST eCW1 ([facility]) [facility] [address] [place] [address] 07/13/2019 12:00:00 AM EST eCW1 ([facility]) [facility] [address] [place] [address] 06/28/2019 12:00:00 AM EST eCW1 ([facility]) [facility] [address] [place] [address] 06/27/2019 12:00:00 AM EST eCW1 ([facility]) Outpatient Referrer: DIO CARRILLO NP 06/02/2019 11:17:00 AM EST [facility] Dermatology Center [address] [place] [address] 05/31/2019 12:00:00 AM EST eCW1 ([facility]) [facility] [address] [place] [address] 05/29/2019 12:00:00 AM EST eCW1 ([facility]) [facility] [address] [place] [address] 05/18/2019 12:00:00 AM EST eCW1 ([facility]) [facility] [address] [place] [address] 05/18/2019 12:00:00 AM EST eCW1 ([facility]) Immunizations Vaccine Date Status Description Data Source(s) Tdap 07/27/2019 09:58:00 AM EST completed e CW1 ([facility]) Tdap 07/27/2019 09:58:00 AM EST completed e CW1 ([facility]) Tdap 07/27/2019 09:58:00 AM EST completed e CW1 ([facility]) Tdap 07/27/2019 09:58:00 AM EST completed e CW1 ([facility]) Tdap 07/27/2019 09:58:00 AM EST completed e CW1 ([facility]) Tdap 07/27/2019 09:58:00 AM EST completed e CW1 ([facility]) Tdap 07/27/2019 09:58:00 AM EST completed e CW1 ([facility]) Tdap 07/27/2019 09:58:00 AM EST completed e CW1 ([facility]) Medications Medication Brand Name Start Date Product Form Dose Route Admi nistrative Instructions Pharmacy Instructions Status Indications Reaction Description Data Source(s) No Active Medications 07/03/2020 12:00:00 AM EST completed MEDENT ([facility]) Sertraline 50 MG Oral Tablet [Zoloft] Zoloft 50 MG Zoloft 50 MG 03/15/2020 12:00:00 AM EDT 1.0 {tablet} active Zo loft 50 MG eCW1 ([facility]) Sertraline 50 MG Oral Tablet [Zoloft] Zoloft 50 MG Zoloft 50 MG 03/15/2020 12:00:00 AM EDT 1.0 {tablet} active Zo loft 50 MG eCW1 ([facility]) Sertraline 50 MG Oral Tablet [Zoloft] Zoloft 50 MG Zoloft 50 MG 03/15/2020 12:00:00 AM EDT 1.0 {tablet} active Zo loft 50 MG eCW1 ([facility]) Famotidine 20 MG Oral Tablet Famotidine 20 MG 02/27/2020 12:00:00 A M EDT 1.0 {tablet_at_bedtime_as_needed} active Fa motidine 20 MG eCW1 ([facility]) Famotidine 20 MG Oral Tablet Famotidine 20 MG 02/27/2020 12:00:00 A M EDT 1.0 {tablet_at_bedtime_as_needed} active Fa motidine 20 MG eCW1 ([facility]) Famotidine 20 MG Oral Tablet Famotidine 20 MG 02/27/2020 12:00:00 A M EDT 1.0 {tablet_at_bedtime_as_needed} active Fa motidine 20 MG eCW1 ([facility]) Famotidine 20 MG Oral Tablet Famotidine 20 MG 02/27/2020 12:00:00 A M EDT 1.0 {tablet_at_bedtime_as_needed} active Fa motidine 20 MG eCW1 ([facility]) Famotidine 20 MG Oral Tablet Famotidine 20 MG 02/27/2020 12:00:00 A M EDT 1.0 {tablet_at_bedtime_as_needed} active Fa motidine 20 MG eCW1 ([facility]) Oseltamivir 75 MG Oral Capsule [Tamiflu] Tamiflu 75 MG Tamif monica 75 MG 06/28/2019 12:00:00 AM EST active 1 capsul e eCW1 ([facility]) Insurance Providers Payer name Policy type / Coverage type Policy ID Covered constitution party ID Covered constitution party's relationship to zuleta Policy [place] Plan Information [place] [employer] [facility] CLAIM ADMIN WORK COMP [id number] SP [id number] [place] [employer] [id number] SP [id number] [facility] [id number] [facility] [id number] [place] [id number] SP [id number] [facility] O [id number] S [id number] ONE CALL CARE MANAGEMENT O [id number] S [id number] [facility] [id number] [facility] [id number] ANSI-Commercial [id number] [facility] Health Maintenance Organization (HMO) [id number] Family Dependent [id number] ANSI-Commercial [id number] ANSI-Commercial [id number] ANSI-Commercial [id number] ANSI-Commercial [id number] ANSI-Commercial [id number] [facility] Health [facility] Organization ([facility]) [id number] Family Dependent [id number] ANSI-Commercial [id number] ANSI-Commercial [id number] ANSI-Commercial [id number] ANSI-Commercial [id number] [facility] [id number] P [id number] ANSI-Commercial [id number] ANSI-Commercial [id number] ANSI-Commercial [id number] ANSI-Commercial [id number] ANSI-Commercial [id number] [facility]/[employer] Health Maintenance Organization (HMO) [id number] Family Dependent [id number] ANSI-Commercial [id number] ANSI-Commercial [id number] [employer] Commercial [id number] Family Dependent [id number] [employer] [id number] [employer] [id number] Family Dependent [id number] [employer] [id number] [id number] [employer] PPO O [id number] P [id number] [employer] [id number] Family Dependent 89 [id number] [employer] Commercial Family Dependent [employer] W/C [id number] SP [id number] [employer] W/C [id number] SP [id number] [employer] W/C [id number] SP [id number] Problems, Conditions, and Diagnoses Code Display Name Description Problem Type Effective Dates Data Source(s) F32.9 Depression Depression Problem 04/16/2020 12:00:00 AM ES T eCW1 ([facility]) L81.1 65088628 Melasma Problem 09/04/2019 12:00:00 AM ED T eCW1 ([facility]) D22.30 [id number] Melanocytic nevi of face Problem 09/04/2019 12:00:00 AM EDT eCW1 ([facility]) D22.62 [id number] Melanocytic nevi of left upper l imb, including shoulder Problem 09/04/2019 12:00:00 AM EDT eCW1 ([facility]) D22.30 892334774 Melanocytic nevi of face Problem 09/04/2019 12:00:00 AM EDT eCW1 ([facility]) D22.62 [id number] Melanocytic nevi of left upper l imb, including shoulder Problem 09/04/2019 12:00:00 AM EDT eCW1 ([facility]) L81.1 [id number] Melasma Problem 09/04/2019 12:00:00 AM ED T eCW1 ([facility]) O09.529 Multigravida of advanced maternal age [place] pervision of elderly multigravida, unspecified trimester Problem 05/13/2019 12:00:[address] eCW1 ([facility]) O09.529 Multigravida of advanced maternal age [place] pervision of elderly multigravida, unspecified trimester Problem 05/13/2019 12:00:[address] eCW1 ([facility]) Surgeries/Procedures Procedure Description Date Indications Data Source(s) Ultrasound, Each 15 Min, Constant Attendance 0 12:00:00 AM EST MEDENT ([facility]) THERAPEUTIC PX 1/> AREAS EACH 15 MIN EXERCISES 12:00:00 AM EST MEDENT ([facility] ) Ultrasound, Each 15 Min, Constant Attendance 0 12:00:00 AM EST MEDENT ([facility]) THERAPEUTIC PX 1/> AREAS EACH 15 MIN EXERCISES 12:00:00 AM EST MEDENT ([facility]) APPLICATION MODALITY 1/> AREAS HOT/COLD PACKS 05/10/20 20 12:00:00 AM EST MEDENT ([facility]) Ultrasound, Each 15 Min, Constant Attendance 0 12:00:00 AM EST MEDENT ([facility]) THERAPEUTIC PX 1/> AREAS EACH 15 MIN EXERCISES 12:00:00 AM EST MEDENT ([facility]) APPLICATION MODALITY 1/> AREAS HOT/COLD PACKS 05/06/20 20 12:00:00 AM EST MEDENT ([facility]) Ultrasound, Each 15 Min, Constant Attendance 0 12:00:00 AM EST MEDENT ([facility]) THERAPEUTIC PX 1/> AREAS EACH 15 MIN EXERCISES 12:00:00 AM EST MEDENT ([facility] ) THERAPEUTIC PX 1/> AREAS EACH 15 MIN EXERCISES 12:00:00 AM EST MEDENT ([facility] ) THERAPEUTIC PX 1/> AREAS EACH 15 MIN EXERCISES 12:00:00 AM EST MEDENT ([facility] ) Ultrasound, Each 15 Min, Constant Attendance 0 12:00:00 AM EST MEDENT ([facility] ) Ultrasound, Each 15 Min, Constant Attendance 0 12:00:00 AM EST MEDENT ([facility] ) THERAPEUTIC PX 1/> AREAS EACH 15 MIN EXERCISES 12:00:00 AM EST MEDENT ([facility] ) THERAPEUTIC PX 1/> AREAS EACH 15 MIN EXERCISES 12:00:00 AM EST MEDENT ([facility] ) Ultrasound, Each 15 Min, Constant Attendance 0 12:00:00 AM EST MEDENT ([facility] ) THERAPEUTIC PX 1/> AREAS EACH 15 MIN EXERCISES 12:00:00 AM EST MEDENT ([facility] ) Ultrasound, Each 15 Min, Constant Attendance 0 12:00:00 AM EST MEDENT ([facility] ) THERAPEUTIC PX 1/> AREAS EACH 15 MIN EXERCISES 12:00:00 AM EST MEDENT ([facility] ) APPLICATION MODALITY 1/> AREAS HOT/COLD PACKS 03/28/20 12:00:00 AM EST MEDENT ([facility] ) Ultrasound, Each 15 Min, Constant Attendance 0 12:00:00 AM EST MEDENT ([facility] ) THERAPEUTIC PX 1/> AREAS EACH 15 MIN EXERCISES 12:00:00 AM EST MEDENT ([facility] ) MANUAL THERAPY TQS 1/> REGIONS EACH 15 MINUTES 12:00:00 AM EST MEDENT ([facility] ) THERAPEUTIC PX 1/> AREAS EACH 15 MIN EXERCISES 12:00:00 AM EST MEDENT ([facility] ) APPLICATION MODALITY 1/> AREAS HOT/COLD PACKS 03/26/20 12:00:00 AM EST MEDENT ([facility] ) APPLICATION MODALITY 1/> AREAS HOT/COLD PACKS 03/20/20 12:00:00 AM EDT MEDENT ([facility] ) THERAPEUTIC PX 1/> AREAS EACH 15 MIN EXERCISES 12:00:00 AM EDT MEDENT ([facility] ) MANUAL THERAPY TQS 1/> REGIONS EACH 15 MINUTES 12:00:00 AM EDT MEDENT ([facility] ) Re-Eval Of PT Established Plan Of Care 20Mins Face To Face P T/Fam 03/20/2020 12:00:00 AM EDT MEDENT ([facility] ) APPLICATION MODALITY 1/> AREAS HOT/COLD PACKS 03/18/20 12:00:00 AM EDT MEDENT ([facility] ) THERAPEUTIC PX 1/> AREAS EACH 15 MIN EXERCISES 12:00:00 AM EDT MEDENT ([facility] ) THERAPEUTIC PX 1/> AREAS EACH 15 MIN EXERCISES 12:00:00 AM EDT MEDENT ([facility] ) THERAPEUTIC PX 1/> AREAS EACH 15 MIN EXERCISES 12:00:00 AM EDT MEDENT ([facility] ) THERAPEUTIC PX 1/> AREAS EACH 15 MIN EXERCISES 12:00:00 AM EDT MEDENT ([facility] ) THERAPEUTIC PX 1/> AREAS EACH 15 MIN EXERCISES 12:00:00 AM EDT MEDENT ([facility] ) THERAPEUTIC PX 1/> AREAS EACH 15 MIN EXERCISES 12:00:00 AM EDT MEDENT ([facility] ) APPLICATION MODALITY 1/> AREAS HOT/COLD PACKS 03/11/20 12:00:00 AM EDT MEDENT ([facility] ) THERAPEUTIC PX 1/> AREAS EACH 15 MIN EXERCISES 12:00:00 AM EDT MEDENT ([facility]) THERAPEUTIC PX 1/> AREAS EACH 15 MIN EXERCISES 12:00:00 AM EDT MEDENT ([facility] ) THERAPEUTIC PX 1/> AREAS EACH 15 MIN EXERCISES 12:00:00 AM EDT MEDENT ([facility] ) THERAPEUTIC PX 1/> AREAS EACH 15 MIN EXERCISES 12:00:00 AM EDT MEDENT ([facility] ) THERAPEUTIC PX 1/> AREAS EACH 15 MIN EXERCISES 12:00:00 AM EDT MEDENT ([facility] ) THERAPEUTIC PX 1/> AREAS EACH 15 MIN EXERCISES 12:00:00 AM EDT MEDENT ([facility] ) THERAPEUTIC PX 1/> AREAS EACH 15 MIN EXERCISES 12:00:00 AM EDT MEDENT ([facility] ) THERAPEUTIC PX 1/> AREAS EACH 15 MIN EXERCISES 12:00:00 AM EDT MEDENT ([facility] ) THERAPEUTIC PX 1/> AREAS EACH 15 MIN EXERCISES 12:00:00 AM EDT MEDENT ([facility] ) THERAPEUTIC PX 1/> AREAS EACH 15 MIN EXERCISES 12:00:00 AM EDT MEDENT ([facility] ) THERAPEUTIC PX 1/> AREAS EACH 15 MIN EXERCISES 12:00:00 AM EDT MEDENT ([facility] ) THERAPEUTIC PX 1/> AREAS EACH 15 MIN EXERCISES 12:00:00 AM EDT MEDENT ([facility] ) THERAPEUTIC PX 1/> AREAS EACH 15 MIN EXERCISES 12:00:00 AM EDT MEDENT ([facility] ) THERAPEUTIC PX 1/> AREAS EACH 15 MIN EXERCISES 12:00:00 AM EDT MEDENT ([facility] ) THERAPEUTIC PX 1/> AREAS EACH 15 MIN EXERCISES 12:00:00 AM EDT MEDENT ([facility] ) THERAPEUTIC PX 1/> AREAS EACH 15 MIN EXERCISES 12:00:00 AM EDT MED[facility] ([facility] ) APPLICATION MODALITY 1/> AREAS HOT/COLD PACKS 02/06/20 12:00:00 AM EDT MED[facility] ([facility] ) THERAPEUTIC PX 1/> AREAS EACH 15 MIN EXERCISES 12:00:00 AM EDT MEDENT ([facility] ) THERAPEUTIC PX 1/> AREAS EACH 15 MIN EXERCISES 12:00:00 AM EDT MED[facility] ([facility]) APPLICATION MODALITY 1/> AREAS HOT/COLD PACKS 01/18/20 12:00:00 AM EDT [facility] ([facility]) THERAPEUTIC PX 1/> AREAS EACH 15 MIN EXERCISES 12:00:00 AM EDT MED[facility] ([facility]) THERAPEUTIC PX 1/> AREAS EACH 15 MIN EXERCISES 12:00:00 AM EDT MED[facility] ([facility]) THERAPEUTIC PX 1/> AREAS EACH 15 MIN EXERCISES 12:00:00 AM EDT MED[facility] ([facility]) THERAPEUTIC PX 1/> AREAS EACH 15 MIN EXERCISES 12:00:00 AM EDT MED[facility] ([facility]) THERAPEUTIC PX 1/> AREAS EACH 15 MIN EXERCISES 12:00:00 AM EDT MED[facility] ([facility]) THERAPEUTIC PX 1/> AREAS EACH 15 MIN EXERCISES 12:00:00 AM EDT [facility] ([facility]) APPLICATION MODALITY 1/> AREAS HOT/COLD PACKS 01/11/20 12:00:00 AM EDT [facility] ([facility]) APPLICATION MODALITY 1/> AREAS HOT/COLD PACKS 01/09/20 12:00:00 AM EDT [facility] ([facility]) THERAPEUTIC PX 1/> AREAS EACH 15 MIN EXERCISES 12:00:00 AM EDT MED[facility] ([facility]) THERAPEUTIC PX 1/> AREAS EACH 15 MIN EXERCISES 12:00:00 AM EDT MED[facility] ([facility]) APPLICATION MODALITY 1/> AREAS HOT/COLD PACKS 01/03/20 12:00:00 AM EDT MED[facility] ([facility]) THERAPEUTIC PX 1/> AREAS EACH 15 MIN EXERCISES 12:00:00 AM EDT MED[facility] ([facility]) THERAPEUTIC PX 1/> AREAS EACH 15 MIN EXERCISES 12:00:00 AM EDT [facility] ([facility]) APPLICATION MODALITY 1/> AREAS HOT/COLD PACKS 01/01/20 12:00:00 AM EDT [facility] ([facility]) THERAPEUTIC PX 1/> AREAS EACH 15 MIN EXERCISES 12:00:00 AM EDT MED[facility] ([facility] ) APPLICATION MODALITY 1/> AREAS HOT/COLD PACKS 12/28/19 12:00:00 AM EDT [facility] ([facility] ) THERAPEUTIC PX 1/> AREAS EACH 15 MIN EXERCISES 12:00:00 AM EDT MED[facility] ([facility] ) THERAPEUTIC PX 1/> AREAS EACH 15 MIN EXERCISES 12:00:00 AM EDT MED[facility] ([facility] ) APPLICATION MODALITY 1/> AREAS HOT/COLD PACKS 12/21/19 12:00:00 AM EDT [facility] ([facility] ) APPLICATION MODALITY 1/> AREAS HOT/COLD PACKS 12/19/19 12:00:00 AM EDT [facility] ([facility] ) THERAPEUTIC PX 1/> AREAS EACH 15 MIN EXERCISES 12:00:00 AM EDT MED[facility] ([facility] ) THERAPEUTIC PX 1/> AREAS EACH 15 MIN EXERCISES 12:00:00 AM EDT MED[facility] ([facility] ) APPLICATION MODALITY 1/> AREAS HOT/COLD PACKS 12/13/19 12:00:00 AM EDT [facility] ([facility] ) THERAPEUTIC PX 1/> AREAS EACH 15 MIN EXERCISES 12:00:00 AM EDT MED[facility] ([facility] ) THERAPEUTIC PX 1/> AREAS EACH 15 MIN EXERCISES 12:00:00 AM EDT MED[facility] ([facility] ) THERAPEUTIC PX 1/> AREAS EACH 15 MIN EXERCISES 12:00:00 AM EDT [facility] ([facility] ) APPLICATION MODALITY 1/> AREAS HOT/COLD PACKS 12/11/19 12:00:00 AM EDT [facility] ([facility] ) THERAPEUTIC PX 1/> AREAS EACH 15 MIN EXERCISES 12:00:00 AM EDT [facility] ([facility] ) THERAPEUTIC PX 1/> AREAS EACH 15 MIN EXERCISES 12:00:00 AM EDT [facility] ([facility] ) Re-Eval Of PT Established Plan Of Care 20Mins Face To Face P T/Fam 12/07/2019 12:00:00 AM EDT [facility] ([facility]) THERAPEUTIC PX 1/> AREAS EACH 15 MIN EXERCISES 12:00:00 AM EDT [facility] ([facility] ) THERAPEUTIC PX 1/> AREAS EACH 15 MIN EXERCISES 12:00:00 AM EDT [facility] ([facility] ) APPLICATION MODALITY 1/> AREAS HOT/COLD PACKS 12/07/19 12:00:00 AM EDT [facility] ([facility] ) APPLICATION MODALITY 1/> AREAS HOT/COLD PACKS 12/05/19 12:00:00 AM EDT [facility] ([facility] ) THERAPEUTIC PX 1/> AREAS EACH 15 MIN EXERCISES 12:00:00 AM EDT [facility] ([facility] ) THERAPEUTIC PX 1/> AREAS EACH 15 MIN EXERCISES 12:00:00 AM EDT [facility] ([facility] ) APPLICATION MODALITY 1/> AREAS HOT/COLD PACKS 12/01/19 12:00:00 AM EDT [facility] ([facility] ) THERAPEUTIC PX 1/> AREAS EACH 15 MIN EXERCISES 12:00:00 AM EDT [facility] ([facility] ) THERAPEUTIC PX 1/> AREAS EACH 15 MIN EXERCISES 12:00:00 AM EDT [facility] ([facility] ) APPLICATION MODALITY 1/> AREAS HOT/COLD PACKS 11/29/19 12:00:00 AM EDT [facility] ([facility] ) THERAPEUTIC PX 1/> AREAS EACH 15 MIN EXERCISES 12:00:00 AM EDT [facility] ([facility] ) THERAPEUTIC PX 1/> AREAS EACH 15 MIN EXERCISES 12:00:00 AM EDT [facility] ([facility] ) MANUAL THERAPY TQS 1/> REGIONS EACH 15 MINUTES 12:00:00 AM EDT [facility] ([facility] ) APPLICATION MODALITY 1/> AREAS HOT/COLD PACKS 11/21/19 20 12:00:00 AM EDT [facility] ([facility] ) Physical Therapy Eval - Low Complexity 11/21/2019 12:0 0:00 AM EDT [facility] ([facility] ) X-Ray Knee Complete W/Obliques & Tunnel And/Or Standing View s 11/06/2019 12:00:00 AM EDT [facility] ([facility]) RADIOLOGIC EXAM KNEE COMPLETE 4/MORE VIEWS 11/06/2019 12:00:00 AM EDT [facility] ([facility] ) RADIOLOGIC EXAM KNEE COMPLETE 4/MORE VIEWS 11/06/2019 12:00:00 AM EDT MED[facility] ([facility] ) CARE VISIT 10/03/2019 12:00:00 AM EDT eCW1 ([facility]) OB Visit 08/02/2019 12:00:00 AM EDT e CW1 ([facility]) TDAP 0.5mL ([facility]) 07/27/2019 12:00:00 AM EST eCW1 ([facility]) IMMUNIZATION ADMIN 07/27/2019 12:00:00 AM EST eCW1 ([facility]) Results ID Date Data Source [id number] 07/05/2020 09:40:00 AM EST [facility] Name Value Range Interpretation Code Description Data Shalini rce(s) Supporting Document(s) SARS coronavirus 2 RNA Not Detected [facility] This lab was ordered by [facility] and reported by [facility]. ID Date Data Source [id number] 05/29/2020 12:00:00 AM EST [facility] Name Value Range Interpretation Code Description Data Shalini rce(s) Supporting Document(s) SARS coronavirus 2 RNA [Presence] in Res piratory specimen by STACI with probe detection NEGATIVE [facility] This lab was ordered by Wilda Edward and reported by [facility]. ID Date Data Source [id number] 05/29/2020 12:00:00 AM EST [facility] Name Value Range Interpretation Code Description Data Shalini rce(s) Supporting Document(s) Carestart Rapid COVID Antigen Test Negative [facility] This lab was reported by Wilda Chioma Ar marcia. ID Date Data Source [id number] 03/14/2020 12:00:00 AM EDT [facility] Jesica Nava Patient Name: SAMARIA [id number] Date of : 1975[id number] Date of Exam: 03/14/2020#: Fax: [phone] EXAM: MAMMO SCREENING WITH CADCLINICAL INFORMATION: Screening.Based on the personal health history and familial cancer history yourpatient supplied at the time of imaging, her lifetime risk of breast cancerestimated by the Tyrer-Cuzick model is 65.4%. However, due to the unknowngene mutation status, there are limitations to the accuracy of this riskestimate. Similarly, if anything changes in the personal and/or familyhistory this percentage could increase or decrease. Currently, the[facility] and [place] [employer] Society recommendadjunctive breast MRI screening starting at age 30 for women with a> 20-25% lifetime risk of developing breast cancer.The patient has previously received genetic testing.Digital screening (2D) mammography was performed bilaterally in the CC andMLO projections. Additionally, breast tomosynthesis (3D mammography) wasperformed bilaterally in the CC and MLO projections. Today's exam wascompared to the prior exam(s).By history, the patient has no complaints of a palpable breast abnormalityor other significant breast complaints.The patient states last clinical breast exam was over a year ago.The breasts are unchanged in size and shape. There are no darby-soft tissuedensities or spiculated masses. There is no internal architecturaldistortion. There are no suspicious darby-calcific clusters. Skinthickening or nipple retraction is not present.The Volpara volumetric breast density category is B, there are scatteredareas of fibroglandular density.IMPRESSION:BI-RADS Category 1 - Negative Mammogram. Stable mammogram. There is noevidence of malignant alteration of the breasts. Followup examinationrecommended in one year.This mammogram was read with the assistance of Betsy WALKER, an FDAapproved computer aided detection system for mammography.Negative x-ray reports should not delay surgical consultation if a dominantor clinically suspicious mass is present.Not all breast cancers can be identified by mammography. Therefore, werecommend that you continue to perform regular breast self-examination andphysical examination and then promptly contact your physician of anyconcerns or changes.Adenosis and dense breasts may obscure an underlying neoplasm.YECENIA Dutta/Niru you for referring SAMARIA OREILLY to our office. Electronically Signed - SANTANA DEL TORO DO 03/14/20 16:49 Name Value Range Interpretation Code Description Data Shalini rce(s) Supporting Document(s) ID Date Data Source [id number] 02/20/2020 12:00:00 AM EDT [facility] Munir Romero MD Patient Name: SAMARIA [id number] [facility] Date of : 1975[address] [facility] [id number] Fax: [phone] EXAM: MRI KNEE LEFT WITHOUT CONTRASTCLINICAL INFORMATION: Persistent pain since trauma last October.3T multiplanar MRI imaging of the left knee was obtained using varioussequences.There are no prior left knee MRI's for comparison.The anterior and posterior horns of the lateral meniscus are within normallimits. There is Grade III signal change seen in the posterior horn of themedial meniscus which is truncation. The anterior horn is within normallimits. The anterior and posterior cruciate ligaments are intact. Thequadriceps and patellar tendons are intact. Slight T2 hypersignal is seenin the medial collateral which is intact. The lateral collateral ligamentis intact. The medial and lateral patellar retinacula are intact. Thereis fissuring of the patellar articular cartilage with thinning andirregularity of the medial and lateral compartmental articular cartilages.There is a slight joint effusion. There is a tiny Lynn's cyst. There ismild patchy T2 hypersignal seen in the proximal medial tibial metaphysis.IMPRESSION:1. The posterior horn of the medial meniscus is torn and there could be atiny bucket handle component.2. The medial collateral ligament is sprained.3. Chondromalacia as described above.4. Subtle proximal medial tibial metaphyseal marrow edema.5. Slight joint effusion and tiny Lynn's cyst.Accredited by the [place] [employer] in MR.YECENIA Dutta/Niru you for referring SAMARIA OREILLY to our office. Electronically Signed - SANTANA DEL TORO DO 02/20/20 13:48 Name Value Range Interpretation Code Description Data Shalini rce(s) Supporting Document(s) ID Date Data Source [id number] 05/25/2019 09:15:00 AM EST [facility] ([facility]) Name Value Range Interpretation Code Description Data Shalini rce(s) Supporting Document(s) Blood Type Laboratory test result Normal (applies to non-n umeric results) [facility] ([facility]) Blood group antibody screen [Presence] in Serum or Vanesa sma Laboratory test result Normal (applies to non-numeric results) [facility] ([facility]) ID Date Data Source [id number] 05/25/2019 09:15:00 AM EST [facility]) Name Value Range Interpretation Code Description Data Shalini rce(s) Supporting Document(s) Glucose [Mass/volume] in Serum or Plasma --1 hour post XXX c hallenge 113 mg/dL Normal (applies to non-numeric results) [facility]) ID Date Data Source [id number] 05/25/2019 09:15:00 AM EST [facility] Name Value Range Interpretation Code Description Data Shalini rce(s) Supporting Document(s) White Blood Count 7.8 10 4.0-10.0 Normal (applies to non-numeri c results) [facility], ) Hematocrit 38.3 % 36.0-47.0 Normal (applies to non-numeric resul ts) [facility]) Red Blood Count 4.07 10 4.00-5.40 Normal (applies to non-numeric results) [facility]) Hemoglobin 12.2 g/dL 12.0-15.5 Normal (applies to non-numeric resul ts) [facility] ([facility]) Mean Corpuscular Volume 94.1 fl 80.0-96.0 Normal ( applies to non-numeric results) [facility] ([facility]) Mean Corpuscular Hemoglobin 30.0 pg 27.0-33.0 Norm al (applies to non-numeric results) [facility] ([facility]) Red Cell Distribution Width 13.0 % 11.5-14.5 Norm al (applies to non-numeric results) [facility] ([facility]) Mean Corpuscular HGB Conc 31.9 g/dL 32.0-36.[address] [facility]) Nucleated Red Blood Cell % 0.0 % 0-0 Normal (applies to n on-numeric results) [facility] ([facility]) Platelet Count, Automated 257 10 150-450 Normal (applies to non-numeric results) [facility] ([facility]) ID Date Data Source CBC 05/25/2019 12:00:00 AM EST eCW1 ([facility]) Name Value Range Interpretation Code Description Data Shalini rce(s) Supporting Document(s) 7.8 4.0-10.0 WHITE BLOOD COUNT eCW1 ([facility]) 12.2 12.0-15.5 HEMOGLOBIN eCW1 ([facility]) 38.3 36.0-47.0 HEMATOCRIT eCW1 ([facility]) 94.1 80.0-96.0 MEAN CORPUSCULAR VOLUME e CW1 ([facility]) 4.07 4.00-5.40 RED BLOOD COUNT eCW1 ([facility]) 13.0 11.5-14.5 RED CELL DISTRIBUTION WID TH eCW1 ([facility]) 30.0 27.0-33.0 MEAN CORPUSCULAR HEMOGLOB IN eCW1 ([facility]) 257 150-450 PLATELET COUNT, AUTOMATED eCW1 ([facility]) 31.9 32.0-36.5 MEAN CORPUSCULAR HGB CONC eCW1 ([facility]) ID Date Data Source Type and Screen (D Rh Antibody Screen) 05/25/2019 12:00:00 A M EST eCW1 ([facility]) Name Value Range Interpretation Code Description Data Shalini rce(s) Supporting Document(s) NEGATIVE AB SCREEN (INDIRECT COOMB S)VIS eCW1 ([facility]) A POSITIVE BLOOD TYPE eCW1 ([facility]) Procedure Social History Code Duration Value Status Description Data Source(s ) Smoking 02/27/2020 12:00:00 AM EDT Former Smoker completed Former Smoker eCW1 ([facility]) Smoking 02/27/2020 12:00:00 AM EDT Former Smoker completed Former Smoker eCW1 ([facility]) Smoking 02/27/2020 12:00:00 AM EDT Former Smoker completed Former Smoker eCW1 ([facility]) Smoking 02/27/2020 12:00:00 AM EDT Former Smoker completed Former Smoker eCW1 ([facility]) Smoking 02/27/2020 12:00:00 AM EDT Former Smoker completed Former Smoker eCW1 ([facility]) Smoking 11/08/2019 12:00:00 AM EDT Former Smoker completed Former Smoker eCW1 ([facility]) Smoking 11/06/2019 12:00:00 AM EDT Patient is a former smoker completed Patient is a former smoker [facility] ([facility]) Smoking 11/03/2019 12:00:00 AM EDT Former Smoker completed Former Smoker eCW1 ([facility]) Vital Signs ID Date Data Source UNK Name Value Range Interpretation Code Description Data Source(s) Body mass index (BMI) [Ratio] 43.4 kg/m2 43.4 k g/m2 MED[facility] ([facility]) Body height 63 [in_i] 63 [in_i] MEDENT ([facility]) 5'3" Body weight 245.00 [lb_av] 245.00 [lb_av] MEDEN T ([facility], [facility]) Body temperature 98.7 [degF] 98.7 [degF] MEDENT ([facility], [facility]) Oxygen saturation in Arterial blood by Pulse oximetry 98 % 98 % [facility] Respiratory rate 13 /min 13 /min MED[facility] ( [facility]) Heart rate 92 /min 92 /min MEDENT ([facility]) Diastolic blood pressure 73 mm[Hg] 73 mm[Hg] MEDENT ([facility]) Systolic blood pressure 148 mm[Hg] 148 mm[Hg] M EDENT ([facility]) Diastolic blood pressure 82 mm[Hg] 82 mm[Hg] eCW1 ([facility]) Systolic blood pressure 120 mm[Hg] 120 mm[Hg] e CW1 ([facility]) Body temperature 97.4 [degF] 97.4 [degF] eCW1 ( [facility]) Respiratory rate 18 /min 18 /min eCW1 ([facility]) Heart rate 98 /min 98 /min eCW1 ([facility]) Body mass index (BMI) [Ratio] 43.86 kg/m2 43.86 kg/m2 W1 ([facility]) Body height 63 [in_i] 63 [in_i] eCW1 ([facility]) Body weight 247.6 [lb_av] 247.6 [lb_av] eCW1 ([facility]) Body surface area Derived from formula 2.09 m2 2.09 m2 MEDENT ([facility]) Body weight 108.864 kg 108.864 kg [facility] ([facility]) [place] body weight 115 [lb_av] 115 [lb_av] MEDEN T ([facility]) Body mass index (BMI) [Ratio] 42.5 kg/m2 42.5 k g/m2 [facility] ([facility]) Body weight 240.00 [lb_av] 240.00 [lb_av] MEDEN T ([facility]) Body height 63 [in_i] 63 [in_i] [facility] ([facility]) 5'3" Body temperature 97.0 [degF] 97.0 [degF] [facility] ([facility]) Diastolic blood pressure 90 mm[Hg] 90 mm[Hg] eCW1 ([facility]) Systolic blood pressure 152 mm[Hg] 152 mm[Hg] e CW1 ([facility]) Body temperature 97.1 [degF] 97.1 [degF] eCW1 ( [facility]) Respiratory rate 18 /min 18 /min eCW1 ([facility]) Heart rate 76 /min 76 /min eCW1 ([facility]) Body mass index (BMI) [Ratio] 42.95 kg/m2 42.95 kg/m2 W1 ([facility]) Body height 63 [in_i] 63 [in_i] eCW1 ([facility]) Body weight [lb_av] eCW1 ([facility]) Diastolic blood pressure 84 mm[Hg] 84 mm[Hg] eCW1 ([facility]) Systolic blood pressure 124 mm[Hg] 124 mm[Hg] e CW1 ([facility]) Body mass index (BMI) [Ratio] 43.22 kg/m2 43.22 kg/m2 W1 ([facility]) Body height 63 [in_us] 63 [in_us] eCW1 ([facility]) Body weight Measured 244 [lb_av] 244 [lb_av] eC W1 ([facility]) Diastolic blood pressure 70 mm[Hg] 70 mm[Hg] eCW1 ([facility]) Systolic blood pressure 120 mm[Hg] 120 mm[Hg] e CW1 ([facility]) Body mass index (BMI) [Ratio] 47.509 kg/m2 47.5 09 kg/m2 eCW1 ([facility]) Body height 63 [in_us] 63 [in_us] eCW1 ([facility]) Body weight Measured 268.2 [lb_av] 268.2 [lb_av ] eCW1 ([facility]) Diastolic blood pressure 72 mm[Hg] 72 mm[Hg] eCW1 ([facility]) Systolic blood pressure 126 mm[Hg] 126 mm[Hg] e CW1 ([facility]) Body mass index (BMI) [Ratio] 47.651 kg/m2 47.6 51 kg/m2 eCW1 ([facility]) Body height 63 [in_us] 63 [in_us] eCW1 ([facility]) Body weight Measured 269 [lb_av] 269 [lb_av] eC W1 ([facility]) Diastolic blood pressure 86 mm[Hg] 86 mm[Hg] eCW1 ([facility]) Systolic blood pressure 144 mm[Hg] 144 mm[Hg] e CW1 ([facility]) Body mass index (BMI) [Ratio] 47.297 kg/m2 47.2 97 kg/m2 eCW1 ([facility]) Body height 63 [in_us] 63 [in_us] eCW1 ([facility]) Body weight Measured 267 [lb_av] 267 [lb_av] eC W1 ([facility]) Diastolic blood pressure 82 mm[Hg] 82 mm[Hg] eCW1 ([facility]) Systolic blood pressure 136 mm[Hg] 136 mm[Hg] e CW1 ([facility]) Body mass index (BMI) [Ratio] 46.34 kg/m2 46.34 kg/m2 eCW1 ([facility]) Body height 63 [in_us] 63 [in_us] eCW1 ([facility]) Body weight Measured 261.6 [lb_av] 261.6 [lb_av ] eCW1 ([facility]) Diastolic blood pressure 82 mm[Hg] 82 mm[Hg] eCW1 ([facility]) Systolic blood pressure 176 mm[Hg] 176 mm[Hg] e CW1 ([facility]) Body mass index (BMI) [Ratio] 47.517 kg/m2 47.5 17 kg/m2 eCW1 ([facility]) Body height 62.5 [in_us] 62.5 [in_us] eCW1 ([facility]) Body weight Measured 264 [lb_av] 264 [lb_av] eC W1 ([facility]) Patient Treatment Plan of Care Planned Activity Planned Date Details Description Data Source (s) Sertraline 50 MG Oral Tablet [Zoloft] 03/15/2020 12:00:00 AM EDT eCW1 ([facility]) Sertraline 50 MG Oral Tablet [Zoloft] 03/15/2020 12:00:00 AM EDT eCW1 ([facility]) Sertraline 50 MG Oral Tablet [Zoloft] 03/15/2020 12:00:00 AM EDT eCW1 ([facility]) Famotidine 20 MG Oral Tablet 02/27/2020 12:00:00 AM EDT eCW1 ([facility]) Famotidine 20 MG Oral Tablet 02/27/2020 12:00:00 AM EDT eCW1 ([facility]) Famotidine 20 MG Oral Tablet 02/27/2020 12:00:00 AM EDT eCW1 ([facility]) Famotidine 20 MG Oral Tablet 02/27/2020 12:00:00 AM EDT eCW1 ([facility]) Famotidine 20 MG Oral Tablet 02/27/2020 12:00:00 AM EDT eCW1 ([facility]) Oseltamivir 75 MG Oral Capsule [Tamiflu] 06/28/2019 12:00:00 AM EST eCW1 ([facility])
--- OUTSIDE RECORDS SUMMARY | 2020-07-10 08:13 | CCD | Continuity of Care Document ---
Author Author Cleo LOPEZ P.Carol Organization Unknown Address [address] [place] [address] Phone [phone] Problems Description No Information Available Social History Type Date Description Comments Sex Unknown Allergies, Adverse Reactions, Alerts Description No Information Available Medications Description No Information Available Immunizations Description No Information Available Vital Signs Description No Information Available Results Description No Information Available Procedures Date Code Description Status 05/10/2020 50613 Therapeutic Procedure, Each 15 M inutes Completed 05/10/2020 44322 Ultrasound, Each 15 Min, Constan t Attendance Completed 05/10/2020 10773 Hot Or Cold Packs Completed 05/06/2020 79381 Therapeutic Procedure, Each 15 M inutes Completed 05/06/2020 63599 Ultrasound, Each 15 Min, Constan t Attendance Completed 05/06/2020 14106 Hot Or Cold Packs Completed 04/12/2020 12803 Therapeutic Procedure, Each 15 M inutes Completed 04/12/2020 20362 Therapeutic Procedure, Each 15 M inutes Completed 04/12/2020 27345 Ultrasound, Each 15 Min, Constan t Attendance Completed 04/09/2020 12573 Therapeutic Procedure, Each 15 M inutes Completed 04/09/2020 62182 Therapeutic Procedure, Each 15 M inutes Completed 04/09/2020 40062 Ultrasound, Each 15 Min, Constan t Attendance Completed 04/04/2020 59019 Ultrasound, Each 15 Min, Constan t Attendance Completed 04/04/2020 18327 Therapeutic Procedure, Each 15 M inutes Completed 04/02/2020 50575 Therapeutic Procedure, Each 15 M inutes Completed 04/02/2020 79066 Ultrasound, Each 15 Min, Constan t Attendance Completed 03/28/2020 74577 Therapeutic Procedure, Each 15 M inutes Completed 03/28/2020 91736 Ultrasound, Each 15 Min, Constan t Attendance Completed 03/28/2020 90613 Hot Or Cold Packs Completed 03/26/2020 01866 Manual Therapy Each 15 Minutes C ompleted 03/26/2020 67119 Therapeutic Procedure, Each 15 M inutes Completed 03/26/2020 07723 Hot Or Cold Packs Completed 03/20/2020 78829 Hot Or Cold Packs Completed 03/20/2020 61613 Therapeutic Procedure, Each 15 M inutes Completed 03/20/2020 68864 Manual Therapy Each 15 Minutes C ompleted 03/20/2020 23299 Re-Eval Of PT Establ ished Plan Of Care 20Mins Face To Face PT/Fam Completed 03/18/2020 52932 Therapeutic Procedure, Each 15 M inutes Completed 03/18/2020 79038 Therapeutic Procedure, Each 15 M inutes Completed 03/18/2020 59057 Hot Or Cold Packs Completed 03/13/2020 73770 Therapeutic Procedure, Each 15 M inutes Completed 03/13/2020 99474 Therapeutic Procedure, Each 15 M inutes Completed 03/11/2020 08642 Therapeutic Procedure, Each 15 M inutes Completed 03/11/2020 15084 Therapeutic Procedure, Each 15 M inutes Completed 03/11/2020 89551 Hot Or Cold Packs Completed 03/05/2020 42957 Therapeutic Procedure, Each 15 M inutes Completed 03/05/2020 84666 Therapeutic Procedure, Each 15 M inutes Completed 02/28/2020 86825 Therapeutic Procedure, Each 15 M inutes Completed 02/28/2020 92946 Therapeutic Procedure, Each 15 M inutes Completed 02/26/2020 34041 Therapeutic Procedure, Each 15 M inutes Completed 02/26/2020 05141 Therapeutic Procedure, Each 15 M inutes Completed 02/23/2020 27211 Therapeutic Procedure, Each 15 M inutes Completed 02/21/2020 43114 Therapeutic Procedure, Each 15 M inutes Completed 02/21/2020 52275 Therapeutic Procedure, Each 15 M inutes Completed 02/21/2020 33160 Therapeutic Procedure, Each 15 M inutes Completed 02/15/2020 77040 Therapeutic Procedure, Each 15 M inutes Completed 02/15/2020 20192 Therapeutic Procedure, Each 15 M inutes Completed 02/13/2020 44188 Therapeutic Procedure, Each 15 M inutes Completed 02/13/2020 02073 Therapeutic Procedure, Each 15 M inutes Completed 02/08/2020 93925 Therapeutic Procedure, Each 15 M inutes Completed 02/08/2020 27368 Therapeutic Procedure, Each 15 M inutes Completed 02/06/2020 43702 Therapeutic Procedure, Each 15 M inutes Completed 02/06/2020 84095 Therapeutic Procedure, Each 15 M inutes Completed 02/06/2020 05368 Hot Or Cold Packs Completed 01/18/2020 15366 Therapeutic Procedure, Each 15 M inutes Completed 01/18/2020 19130 Therapeutic Procedure, Each 15 M inutes Completed 01/18/2020 14095 Hot Or Cold Packs Completed 01/16/2020 60567 Therapeutic Procedure, Each 15 M inutes Completed 01/16/2020 78707 Therapeutic Procedure, Each 15 M inutes Completed 01/11/2020 40272 Therapeutic Procedure, Each 15 M inutes Completed 01/11/2020 19848 Therapeutic Procedure, Each 15 M inutes Completed 01/11/2020 99159 Hot Or Cold Packs Completed 01/09/2020 53796 Hot Or Cold Packs Completed 01/09/2020 04414 Therapeutic Procedure, Each 15 M inutes Completed 01/09/2020 27705 Therapeutic Procedure, Each 15 M inutes Completed 01/03/2020 09420 Therapeutic Procedure, Each 15 M inutes Completed 01/03/2020 40873 Therapeutic Procedure, Each 15 M inutes Completed 01/03/2020 86912 Hot Or Cold Packs Completed 01/01/2020 17643 Therapeutic Procedure, Each 15 M inutes Completed 01/01/2020 84578 Hot Or Cold Packs Completed 12/28/2019 83976 Therapeutic Procedure, Each 15 M inutes Completed 12/28/2019 59831 Hot Or Cold Packs Completed 12/21/2019 39636 Therapeutic Procedure, Each 15 M inutes Completed 12/21/2019 60748 Hot Or Cold Packs Completed 12/19/2019 67891 Hot Or Cold Packs Completed 12/19/2019 79889 Therapeutic Procedure, Each 15 M inutes Completed 12/19/2019 15169 Therapeutic Procedure, Each 15 M inutes Completed 12/13/2019 60181 Therapeutic Procedure, Each 15 M inutes Completed 12/13/2019 93654 Therapeutic Procedure, Each 15 M inutes Completed 12/13/2019 75858 Therapeutic Procedure, Each 15 M inutes Completed 12/13/2019 61224 Hot Or Cold Packs Completed 12/11/2019 44308 Therapeutic Procedure, Each 15 M inutes Completed 12/11/2019 98418 Therapeutic Procedure, Each 15 M inutes Completed 12/11/2019 76261 Hot Or Cold Packs Completed 12/07/2019 91119 Hot Or Cold Packs Completed 12/07/2019 49329 Therapeutic Procedure, Each 15 M inutes Completed 12/07/2019 79993 Therapeutic Procedure, Each 15 M inutes Completed 12/07/2019 95560 Re-Eval Of PT Establ ished Plan Of Care 20Mins Face To Face PT/Fam Completed 12/05/2019 69113 Therapeutic Procedure, Each 15 M inutes Completed 12/05/2019 97267 Therapeutic Procedure, Each 15 M inutes Completed 12/05/2019 84256 Hot Or Cold Packs Completed 12/01/2019 71205 Therapeutic Procedure, Each 15 M inutes Completed 12/01/2019 91213 Therapeutic Procedure, Each 15 M inutes Completed 12/01/2019 80973 Hot Or Cold Packs Completed 11/29/2019 43190 Manual Therapy Each 15 Minutes C ompleted 11/29/2019 56423 Therapeutic Procedure, Each 15 M inutes Completed 11/29/2019 40118 Therapeutic Procedure, Each 15 M inutes Completed 11/29/2019 44345 Hot Or Cold Packs Completed 11/21/2019 77676 Physical Therapy Eval - Low Comp lexity Completed 11/21/2019 74273 Hot Or Cold Packs Completed Medical Devices Description No Information Available Encounters Description No Information Available Assessments Date Code Description Provider 05/10/2020 S83.242D Other tear of medial meniscus, current injury, left knee, subsequent encounter Tu Lopez P.T. 05/06/2020 S83.242D Other tear of medial meniscus, current injury, left knee, subsequent encounter Cleo Maher, [facility] 04/12/2020 S83.242D Other tear of medial meniscus, current injury, left knee, subsequent encounter Cleo Maher, [facility] 04/09/2020 S83.242D Other tear of medial meniscus, current injury, left knee, subsequent encounter Cleo Maher, [facility] 04/04/2020 S83.242D Other tear of medial meniscus, current injury, left knee, subsequent encounter Cleo Maher, [facility] 04/02/2020 S83.242D Other tear of medial meniscus, [...] encounter Cleo Cariaspa, [facility] 02/26/2020 S80.02xD Contusion of left knee, subseque nt encounter Juanjose Holder, PT, DPT 02/23/2020 S80.02xD Contusion of left knee, subseque nt encounter Juanjose Holder, PT, DPT 02/21/2020 S80.02xD Contusion of left knee, subseque nt encounter Tu Lopez P.T. 02/15/2020 S80.02xD Contusion of left knee, subseque nt encounter Cleo Cariaspa, [facility] 02/13/2020 S80.02xD Contusion of left knee, subseque nt encounter Cleo M. Jvpa, [facility] 02/08/2020 S80.02xD Contusion of left knee, subseque nt encounter Cleo M. Vespa, [facility] 02/06/2020 S80.02xD Contusion of left knee, subseque nt encounter Cleo M. Vespa, [facility] 01/18/2020 S80.02xD Contusion of left knee, subseque nt encounter Cleo M. Jvpa, [facility] 01/16/2020 S80.02xD Contusion [...] encounter Cleo Maher, [facility] 12/05/2019 S80.02xD Contusion of left knee, subseque nt encounter Cleo Maher, [facility] 12/01/2019 S80.02xD Contusion of left knee, subseque nt encounter Cleo Maher, [facility] 11/29/2019 S80.02xD Contusion of left knee, subseque nt encounter Cleo Maher, [facility] 11/21/2019 S80.02xD Contusion of left knee, subseque nt encounter Cleo Maher, [facility] Plan of Treatment Future Appointment(s):* 05/15/2020 3:00 pm - Tu Lopez P.T. at Physical Therapy Referral Functional Status Description No Information Available Mental Status Description No Information Available Referrals Refer to Reason for Referral Status Appt Date Kishan Patel MD PT LT KNEE WRITTEN AUTH PASS ED TO TRIAGE THEN PT DEPT. 05/03/20 PER ESTELLE OK TO FINISH THE REST. Created [facility] [place] [id number] [phone] Kevin Milian MD PT- LT KNEE WRITTEN AUTH PASSED TOTRIAGE THEN PT DEPT. Created [facility] [place] [id number] [phone] Tu Lopez RPT PT- LT KNEE OK TO [facility] 2ND SE T. PASSED TO TRIAGE THEN PT DEPT. Created [address] [place], [place] [id number] [place] [id number] [phone] Kevin Milian MD PT- LT KNEE OK TO [facility] 1ST SET PASSED TO PT DEPT. Created [address] [place] [phone] [phone]
--- OUTSIDE RECORDS SUMMARY | 2020-07-10 08:13 | CCD | Continuity of Care Document ---
Author Author Cleo MAHER [facility] Organization Unknown Address [address] [place] [address] Phone [phone] Problems Description No Information Available Social History Type Date Description Comments Sex Unknown Allergies, Adverse Reactions, Alerts Description No Information Available Medications Description No Information Available Immunizations Description No Information Available Vital Signs Description No Information Available Results Description No Information Available Procedures Date Code Description Status 05/06/2020 45823 Therapeutic Procedure, Each 15 M inutes Completed 05/06/2020 98637 Ultrasound, Each 15 Min, Constan t Attendance Completed 05/06/2020 89873 Hot Or Cold Packs Completed 04/12/2020 09041 Therapeutic Procedure, Each 15 M inutes Completed 04/12/2020 43987 Therapeutic Procedure, Each 15 M inutes Completed 04/12/2020 21408 Ultrasound, Each 15 Min, Constan t Attendance Completed 04/09/2020 16136 Therapeutic Procedure, Each 15 M inutes Completed 04/09/2020 19303 Therapeutic Procedure, Each 15 M inutes Completed 04/09/2020 69840 Ultrasound, Each 15 Min, Constan t Attendance Completed 04/04/2020 30066 Therapeutic Procedure, Each 15 M inutes Completed 04/04/2020 51219 Ultrasound, Each 15 Min, Constan t Attendance Completed 04/02/2020 30714 Ultrasound, Each 15 Min, Constan t Attendance Completed 04/02/2020 26992 Therapeutic Procedure, Each 15 M inutes Completed 03/28/2020 22791 Therapeutic Procedure, Each 15 M inutes Completed 03/28/2020 06463 Ultrasound, Each 15 Min, Constan t Attendance Completed 03/28/2020 93839 Hot Or Cold Packs Completed 03/26/2020 78445 Manual Therapy Each 15 Minutes C ompleted 03/26/2020 96914 Therapeutic Procedure, Each 15 M inutes Completed 03/26/2020 25485 Hot Or Cold Packs Completed 03/20/2020 92509 Re-Eval Of PT Establ ished Plan Of Care 20Mins Face To Face PT/Fam Completed 03/20/2020 00423 Manual Therapy Each 15 Minutes C ompleted 03/20/2020 67870 Therapeutic Procedure, Each 15 M inutes Completed 03/20/2020 54924 Hot Or Cold Packs Completed 03/18/2020 91001 Hot Or Cold Packs Completed 03/18/2020 35021 Therapeutic Procedure, Each 15 M inutes Completed 03/18/2020 66971 Therapeutic Procedure, Each 15 M inutes Completed 03/13/2020 12430 Therapeutic Procedure, Each 15 M inutes Completed 03/13/2020 60894 Therapeutic Procedure, Each 15 M inutes Completed 03/11/2020 83948 Therapeutic Procedure, Each 15 M inutes Completed 03/11/2020 04870 Therapeutic Procedure, Each 15 M inutes Completed 03/11/2020 23101 Hot Or Cold Packs Completed 03/05/2020 87266 Therapeutic Procedure, Each 15 M inutes Completed 03/05/2020 79908 Therapeutic Procedure, Each 15 M inutes Completed 02/28/2020 36811 Therapeutic Procedure, Each 15 M inutes Completed 02/28/2020 04920 Therapeutic Procedure, Each 15 M inutes Completed 02/26/2020 48962 Therapeutic Procedure, Each 15 M inutes Completed 02/26/2020 30194 Therapeutic Procedure, Each 15 M inutes Completed 02/23/2020 57362 Therapeutic Procedure, Each 15 M inutes Completed 02/21/2020 98658 Therapeutic Procedure, Each 15 M inutes Completed 02/21/2020 55948 Therapeutic Procedure, Each 15 M inutes Completed 02/21/2020 54191 Therapeutic Procedure, Each 15 M inutes Completed 02/15/2020 83418 Therapeutic Procedure, Each 15 M inutes Completed 02/15/2020 15414 Therapeutic Procedure, Each 15 M inutes Completed 02/13/2020 55879 Therapeutic Procedure, Each 15 M inutes Completed 02/13/2020 86026 Therapeutic Procedure, Each 15 M inutes Completed 02/08/2020 53208 Therapeutic Procedure, Each 15 M inutes Completed 02/08/2020 48253 Therapeutic Procedure, Each 15 M inutes Completed 02/06/2020 32476 Hot Or Cold Packs Completed 02/06/2020 41629 Therapeutic Procedure, Each 15 M inutes Completed 02/06/2020 09329 Therapeutic Procedure, Each 15 M inutes Completed 01/18/2020 21393 Therapeutic Procedure, Each 15 M inutes Completed 01/18/2020 69700 Therapeutic Procedure, Each 15 M inutes Completed 01/18/2020 19240 Hot Or Cold Packs Completed 01/16/2020 97943 Therapeutic Procedure, Each 15 M inutes Completed 01/16/2020 30142 Therapeutic Procedure, Each 15 M inutes Completed 01/11/2020 29058 Therapeutic Procedure, Each 15 M inutes Completed 01/11/2020 54695 Therapeutic Procedure, Each 15 M inutes Completed 01/11/2020 94004 Hot Or Cold Packs Completed 01/09/2020 77114 Hot Or Cold Packs Completed 01/09/2020 17509 Therapeutic Procedure, Each 15 M inutes Completed 01/09/2020 91191 Therapeutic Procedure, Each 15 M inutes Completed 01/03/2020 18898 Therapeutic Procedure, Each 15 M inutes Completed 01/03/2020 35120 Therapeutic Procedure, Each 15 M inutes Completed 01/03/2020 92514 Hot Or Cold Packs Completed 01/01/2020 49444 Therapeutic Procedure, Each 15 M inutes Completed 01/01/2020 50572 Hot Or Cold Packs Completed 12/28/2019 41121 Therapeutic Procedure, Each 15 M inutes Completed 12/28/2019 49126 Hot Or Cold Packs Completed 12/21/2019 42353 Therapeutic Procedure, Each 15 M inutes Completed 12/21/2019 12706 Hot Or Cold Packs Completed 12/19/2019 06947 Hot Or Cold Packs Completed 12/19/2019 99050 Therapeutic Procedure, Each 15 M inutes Completed 12/19/2019 80794 Therapeutic Procedure, Each 15 M inutes Completed 12/13/2019 77596 Therapeutic Procedure, Each 15 M inutes Completed 12/13/2019 34858 Therapeutic Procedure, Each 15 M inutes Completed 12/13/2019 47729 Therapeutic Procedure, Each 15 M inutes Completed 12/13/2019 32850 Hot Or Cold Packs Completed 12/11/2019 16771 Therapeutic Procedure, Each 15 M inutes Completed 12/11/2019 16455 Therapeutic Procedure, Each 15 M inutes Completed 12/11/2019 44363 Hot Or Cold Packs Completed 12/07/2019 64920 Hot Or Cold Packs Completed 12/07/2019 85407 Therapeutic Procedure, Each 15 M inutes Completed 12/07/2019 46373 Therapeutic Procedure, Each 15 M inutes Completed 12/07/2019 34906 Re-Eval Of PT Establ ished Plan Of Care 20Mins Face To Face PT/Fam Completed 12/05/2019 72117 Therapeutic Procedure, Each 15 M inutes Completed 12/05/2019 61940 Therapeutic Procedure, Each 15 M inutes Completed 12/05/2019 26477 Hot Or Cold Packs Completed 12/01/2019 64925 Therapeutic Procedure, Each 15 M inutes Completed 12/01/2019 46542 Therapeutic Procedure, Each 15 M inutes Completed 12/01/2019 90587 Hot Or Cold Packs Completed 11/29/2019 12156 Manual Therapy Each 15 Minutes C ompleted 11/29/2019 86021 Therapeutic Procedure, Each 15 M inutes Completed 11/29/2019 30251 Therapeutic Procedure, Each 15 M inutes Completed 11/29/2019 30312 Hot Or Cold Packs Completed 11/21/2019 11394 Physical Therapy Eval - Low Comp lexity Completed 11/21/2019 65561 Hot Or Cold Packs Completed Medical Devices Description No Information Available Encounters Description No Information Available Assessments Date Code Description Provider 05/06/2020 S83.242D Other tear of medial meniscus, current injury, left knee, subsequent encounter Cleo Maher, [facility] 04/12/2020 S83.242D Other tear of medial meniscus, current injury, left knee, subsequent encounter Cleo Maher, [facility] 04/09/2020 S83.242D Other tear of medial meniscus, current injury, left knee, subsequent encounter Cleo Maher, [facility] 04/04/2020 S83.242D Other tear of medial meniscus, current injury, left knee, subsequent encounter Cleo Maher, [facility] 04/02/2020 S83.242D Other tear of medial meniscus, current injury, left knee, subsequent encounter Cleo Maher, [facility] 03/28/2020 S83.242D Other tear of medial meniscus, current injury, left knee, subsequent encounter Cleo Maher, [facility] 03/26/2020 S83.242D Other tear of medial meniscus, current injury, left knee, subsequent encounter Cleo Maher, [facility] 03/20/2020 S83.242D Other tear of medial meniscus, current injury, left knee, subsequent encounter Cleo Maher, [facility] 03/18/2020 S83.242D Other tear of medial meniscus, current injury, left knee, subsequent encounter Cleo Maher, [facility] 03/13/2020 S83.242D Other tear of medial meniscus, current injury, left knee, subsequent encounter Cleo Maher, [facility] 03/11/2020 S83.242D Other tear of medial meniscus, current injury, left knee, subsequent encounter Cleo Maher, [facility] 03/05/2020 S83.242D Other tear of medial meniscus, current injury, left knee, subsequent encounter Cleo Maher, [facility] 02/28/2020 S80.02xD Contusion of left knee, subseque nt encounter Cleo Cariaspa, [facility] 02/26/2020 S80.02xD Contusion of left knee, subseque nt encounter Jaunjose Holder, PT, DPT 02/23/2020 S80.02xD Contusion of left knee, subseque nt encounter Juanjose Holder, PT, DPT 02/21/2020 S80.02xD Contusion of left knee, subseque nt encounter Tu Lopez P.T. 02/15/2020 S80.02xD Contusion of left knee, subseque nt encounter Cleo Cariaspa, [facility] 02/13/2020 S80.02xD Contusion of left knee, subseque nt encounter Cleo MSemaj Cariaspa, [facility] 02/08/2020 S80.02xD Contusion of left knee, subseque nt encounter Cleo M. Vespa, [facility] 02/06/2020 S80.02xD Contusion of left knee, subseque nt encounter Cleo M. Vespa, [facility] 01/18/2020 S80.02xD Contusion of left knee, subseque nt encounter Cleo M. Vespa, [facility] 01/16/2020 S80.02xD Contusion of left knee, subseque nt encounter Cleo M. Vespa, [facility] 01/11/2020 S80.02xD Contusion of left knee, subseque nt encounter Cleo M. Vespa, [facility] 01/09/2020 S80.02xD Contusion of left knee, subseque nt encounter Cleo Maher, [facility] 01/03/2020 S80.02xD Contusion of left knee, subseque nt encounter Cleo Maher, [facility] 01/01/2020 S80.02xD Contusion of left knee, subseque nt encounter Tu Lopez P.T. 12/28/2019 S80.02xD Contusion of left knee, subseque nt encounter Tu Lopez P.T. 12/21/2019 S80.02xD Contusion of left knee, subseque nt encounter Cleo Maher, [facility] 12/19/2019 S80.02xD Contusion of left knee, subseque nt encounter Cleo Maher, [facility] 12/13/2019 S80.02xD Contusion of left knee, subseque nt encounter Tu Lopez P.T. 12/11/2019 S80.02xD Contusion of left knee, subseque nt encounter Tu Lopez P.T. 12/07/2019 S80.02xD Contusion of left knee, subseque nt encounter Cleo Maher, [facility] 12/05/2019 S80.02xD Contusion of left knee, subseque nt encounter Cleo Maher, [facility] 12/01/2019 S80.02xD Contusion of left knee, subseque nt encounter Cleo Maher, [facility] 11/29/2019 S80.02xD Contusion of left knee, subseque nt encounter Cleo Maher, [facility] 11/21/2019 S80.02xD Contusion of left knee, subseque nt encounter Cleo Maher, [facility] Plan of Treatment No Information Available Functional Status Description No Information Available Mental Status Description No Information Available Referrals Refer to Dr Reason for Referral Status Appt Date Kishan Patel MD PT LT KNEE WRITTEN AUTH PASS ED TO TRIAGE THEN PT DEPT. 05/03/20 JED ARTEAGA TO FINISH THE REST. Created [address] [place] [address], [address] [place] [address] [phone] Kvein Milian MD PT- LT KNEE WRITTEN AUTH PASSED TOTRIAGE THEN PT DEPT. Created [address] [place] [phone] Tu Lopez RPT PT- LT KNEE OK TO [facility] 2ND SE T. PASSED TO TRIAGE THEN PT DEPT. ISHMAEL Created [address] [place], [place] [id number] [place] [address] [phone] Kevin Milian MD PT- LT KNEE OK TO [facility] 1ST SET PASSED TO PT DEPT. ISHMAEL Created [address] [place] [phone]
--- OUTSIDE RECORDS SUMMARY | 2020-07-10 08:13 | CCD | Continuity of Care Document ---
Author Author Cleo MAHER [facility] Organization Unknown Address [address] [place] [id number] Phone [phone] Problems Description No Information Available Social History Type Date Description Comments Sex Unknown Allergies, Adverse Reactions, Alerts Description No Information Available Medications Description No Information Available Immunizations Description No Information Available Vital Signs Description No Information Available Results Description No Information Available Procedures Date Code Description Status 04/09/2020 73140 Therapeutic Procedure, Each 15 M inutes Completed 04/09/2020 07296 Therapeutic Procedure, Each 15 M inutes Completed 04/09/2020 00319 Ultrasound, Each 15 Min, Constan t Attendance Completed 04/04/2020 91539 Therapeutic Procedure, Each 15 M inutes Completed 04/04/2020 14512 Ultrasound, Each 15 Min, Constan t Attendance Completed 04/02/2020 25198 Therapeutic Procedure, Each 15 M inutes Completed 04/02/2020 20831 Ultrasound, Each 15 Min, Constan t Attendance Completed 03/28/2020 97559 Therapeutic Procedure, Each 15 M inutes Completed 03/28/2020 67120 Ultrasound, Each 15 Min, Constan t Attendance Completed 03/28/2020 72412 Hot Or Cold Packs Completed 03/26/2020 12596 Hot Or Cold Packs Completed 03/26/2020 59671 Therapeutic Procedure, Each 15 M inutes Completed 03/26/2020 39394 Manual Therapy Each 15 Minutes C ompleted 03/20/2020 43409 Re-Eval Of PT Establ ished Plan Of Care 20Mins Face To Face PT/Fam Completed 03/20/2020 92357 Manual Therapy Each 15 Minutes C ompleted 03/20/2020 30509 Therapeutic Procedure, Each 15 M inutes Completed 03/20/2020 19335 Hot Or Cold Packs Completed 03/18/2020 53654 Therapeutic Procedure, Each 15 M inutes Completed 03/18/2020 89077 Therapeutic Procedure, Each 15 M inutes Completed 03/18/2020 21620 Hot Or Cold Packs Completed 03/13/2020 83934 Therapeutic Procedure, Each 15 M inutes Completed 03/13/2020 97813 Therapeutic Procedure, Each 15 M inutes Completed 03/11/2020 42227 Hot Or Cold Packs Completed 03/11/2020 41766 Therapeutic Procedure, Each 15 M inutes Completed 03/11/2020 72426 Therapeutic Procedure, Each 15 M inutes Completed 03/05/2020 95824 Therapeutic Procedure, Each 15 M inutes Completed 03/05/2020 75019 Therapeutic Procedure, Each 15 M inutes Completed 02/28/2020 12347 Therapeutic Procedure, Each 15 M inutes Completed 02/28/2020 97860 Therapeutic Procedure, Each 15 M inutes Completed 02/26/2020 45095 Therapeutic Procedure, Each 15 M inutes Completed 02/26/2020 41849 Therapeutic Procedure, Each 15 M inutes Completed 02/23/2020 76958 Therapeutic Procedure, Each 15 M inutes Completed 02/21/2020 68542 Therapeutic Procedure, Each 15 M inutes Completed 02/21/2020 79620 Therapeutic Procedure, Each 15 M inutes Completed 02/21/2020 22177 Therapeutic Procedure, Each 15 M inutes Completed 02/15/2020 45422 Therapeutic Procedure, Each 15 M inutes Completed 02/15/2020 73472 Therapeutic Procedure, Each 15 M inutes Completed 02/13/2020 61513 Therapeutic Procedure, Each 15 M inutes Completed 02/13/2020 34504 Therapeutic Procedure, Each 15 M inutes Completed 02/08/2020 91736 Therapeutic Procedure, Each 15 M inutes Completed 02/08/2020 98839 Therapeutic Procedure, Each 15 M inutes Completed 02/06/2020 23754 Therapeutic Procedure, Each 15 M inutes Completed 02/06/2020 39200 Therapeutic Procedure, Each 15 M inutes Completed 02/06/2020 22671 Hot Or Cold Packs Completed 01/18/2020 40824 Hot Or Cold Packs Completed 01/18/2020 19294 Therapeutic Procedure, Each 15 M inutes Completed 01/18/2020 91031 Therapeutic Procedure, Each 15 M inutes Completed 01/16/2020 20298 Therapeutic Procedure, Each 15 M inutes Completed 01/16/2020 10509 Therapeutic Procedure, Each 15 M inutes Completed 01/11/2020 83859 Therapeutic Procedure, Each 15 M inutes Completed 01/11/2020 88173 Therapeutic Procedure, Each 15 M inutes Completed 01/11/2020 95255 Hot Or Cold Packs Completed 01/09/2020 87967 Therapeutic Procedure, Each 15 M inutes Completed 01/09/2020 95142 Therapeutic Procedure, Each 15 M inutes Completed 01/09/2020 54836 Hot Or Cold Packs Completed 01/03/2020 68620 Hot Or Cold Packs Completed 01/03/2020 72900 Therapeutic Procedure, Each 15 M inutes Completed 01/03/2020 88229 Therapeutic Procedure, Each 15 M inutes Completed 01/01/2020 47872 Therapeutic Procedure, Each 15 M inutes Completed 01/01/2020 92773 Hot Or Cold Packs Completed 12/28/2019 98738 Therapeutic Procedure, Each 15 M inutes Completed 12/28/2019 87694 Hot Or Cold Packs Completed 12/21/2019 40658 Therapeutic Procedure, Each 15 M inutes Completed 12/21/2019 84021 Hot Or Cold Packs Completed 12/19/2019 00241 Therapeutic Procedure, Each 15 M inutes Completed 12/19/2019 70326 Therapeutic Procedure, Each 15 M inutes Completed 12/19/2019 33761 Hot Or Cold Packs Completed 12/13/2019 98572 Hot Or Cold Packs Completed 12/13/2019 94706 Therapeutic Procedure, Each 15 M inutes Completed 12/13/2019 53738 Therapeutic Procedure, Each 15 M inutes Completed 12/13/2019 52322 Therapeutic Procedure, Each 15 M inutes Completed 12/11/2019 89883 Therapeutic Procedure, Each 15 M inutes Completed 12/11/2019 83996 Therapeutic Procedure, Each 15 M inutes Completed 12/11/2019 35574 Hot Or Cold Packs Completed 12/07/2019 47508 Re-Eval Of PT Establ ished Plan Of Care 20Mins Face To Face PT/Fam Completed 12/07/2019 47508 Therapeutic Procedure, Each 15 M inutes Completed 12/07/2019 36271 Therapeutic Procedure, Each 15 M inutes Completed 12/07/2019 82761 Hot Or Cold Packs Completed 12/05/2019 49587 Hot Or Cold Packs Completed 12/05/2019 50661 Therapeutic Procedure, Each 15 M inutes Completed 12/05/2019 74754 Therapeutic Procedure, Each 15 M inutes Completed 12/01/2019 65668 Therapeutic Procedure, Each 15 M inutes Completed 12/01/2019 27029 Therapeutic Procedure, Each 15 M inutes Completed 12/01/2019 38303 Hot Or Cold Packs Completed 11/29/2019 54384 Manual Therapy Each 15 Minutes C ompleted 11/29/2019 71740 Therapeutic Procedure, Each 15 M inutes Completed 11/29/2019 92552 Therapeutic Procedure, Each 15 M inutes Completed 11/29/2019 17141 Hot Or Cold Packs Completed 11/21/2019 88493 Physical Therapy Eval - Low Comp lexity Completed 11/21/2019 83834 Hot Or Cold Packs Completed 11/06/2019 12502 X-Ray Knee Complete W/Obliques & Tunnel And/Or Standing Views Completed 11/06/2019 02673 X-Ray Knee Complete W/Obliques & Tunnel And/Or Standing Views Completed Medical Devices Description No Information Available Encounters Description No Information Available Assessments Date Code Description Provider 04/09/2020 S83.242D Other tear of medial meniscus, current injury, left knee, subsequent encounter Cleo Maher, [facility] 04/04/2020 S83.242D Other tear of medial meniscus, current injury, left knee, subsequent encounter Cleo Maher, [facility] 04/02/2020 S83.242D Other tear of medial meniscus, current injury, left knee, subsequent encounter Cleo Maher, [facility] 03/28/2020 S83.242D Other tear of medial meniscus, current injury, left knee, subsequent encounter Cleo Maher, [facility] 03/26/2020 S83.242D Other tear of medial meniscus, current injury, left knee, subsequent encounter Cleo Maher, [facility] 03/20/2020 S83.242D Other tear of medial meniscus, current injury, left knee, subsequent encounter Cleo Maher, [facility] 03/18/2020 S83.242D Other tear of medial meniscus, current injury, left knee, subsequent encounter Cleo Maher, [facility] 03/13/2020 S83.242D Other tear of medial meniscus, current injury, left knee, subsequent encounter Cleo Maher, [facility] 03/11/2020 S83.242D Other tear of medial meniscus, current injury, left knee, subsequent encounter Cleo Maher, [facility] 03/05/2020 S83.242D Other tear of medial meniscus, current injury, left knee, subsequent encounter Cleo Maher, [facility] 02/28/2020 S80.02xD Contusion of left knee, subseque nt encounter Cleo Maher, [facility] 02/26/2020 S80.02xD Contusion of left knee, subseque nt encounter Juanjose CortesSemaj Holder, PT, DPT 02/23/2020 S80.02xD Contusion of left knee, subseque nt encounter Juanjosemaria victoria Holder, PT, DPT 02/21/2020 S80.02xD Contusion of left knee, subseque nt encounter Tu Lopez P.T. 02/15/2020 S80.02xD Contusion of left knee, subseque nt encounter Cleo Maher, [facility] 02/13/2020 S80.02xD Contusion of left knee, subseque nt encounter Cleo Maher, [facility] 02/08/2020 S80.02xD Contusion of left knee, subseque nt encounter Cleo Maher, [facility] 02/06/2020 S80.02xD Contusion of left knee, subseque nt encounter Cleo Maher, [facility] 01/18/2020 S80.02xD Contusion of left knee, subseque nt encounter Cleo Maher, [facility] 01/16/2020 S80.02xD Contusion of left knee, subseque nt encounter Cleo Maher, [facility] 01/11/2020 S80.02xD Contusion of left knee, subseque nt encounter Cleo Maher, [facility] 01/09/2020 S80.02xD Contusion of left knee, subseque nt encounter Cleo Cariaspa, [facility] 01/03/2020 S80.02xD Contusion of left knee, subseque nt encounter Cleo Cariaspa, [facility] 01/01/2020 S80.02xD Contusion of left knee, subseque nt encounter Tu Lopez P.T. 12/28/2019 S80.02xD Contusion of left knee, subseque nt encounter Tu Lopez P.T. 12/21/2019 S80.02xD Contusion of left knee, subseque nt encounter Cleo Maher, [facility] 12/19/2019 S80.02xD Contusion of left knee, subseque nt encounter Cleo Maher, [facility] 12/13/2019 S80.02xD Contusion of left knee, subseque nt encounter Tu Lopez P.T. 12/11/2019 S80.02xD Contusion of left knee, subseque nt encounter Tu Lopez P.T. 12/07/2019 S80.02xD Contusion of left knee, subseque nt encounter Cleo Maher, [facility] 12/05/2019 S80.02xD Contusion of left knee, subseque nt encounter Cleo Tae Maher, [facility] 12/01/2019 S80.02xD Contusion of left knee, subseque nt encounter Cleo Maher, [facility] 11/29/2019 S80.02xD Contusion of left knee, subseque nt encounter Cleo Maher, [facility] 11/21/2019 S80.02xD Contusion of left knee, subseque nt encounter Cleo Maher, [facility] 11/06/2019 M25.562 Pain in left knee Kevin Milian MD Plan of Treatment Future Appointment(s):* 04/15/2020 8:00 am - Cleo KolbSemaj Maher, [facility] Referral Functional Status Description No Information Available Mental Status Description No Information Available Referrals Refer to Dr Reason for Referral Status Appt Date Kishan Patel MD PT LT KNEE WRITTEN AUTH PASS ED TO TRIAGE THEN PT DEPT. Created [address] [place] [phone] Kevin Milian MD PT- LT KNEE WRITTEN AUTH PASSED TOTRIAGE THEN PT DEPT. Created [address] [place] [phone] Tu Lopez RPT PT- LT KNEE OK TO HEATH 2ND SE T. PASSED TO TRIAGE THEN PT DEPT. Created [address] [place], [place] [id number] [phone] Kevin Milian MD PT- LT KNEE OK TO HEATH 1ST SET PASSED TO PT DEPT. LS Created [address] [facility], [address] [place] [address] [phone]
--- OUTSIDE RECORDS SUMMARY | 2020-07-10 08:13 | CCD | Continuity of Care Document ---
Author Author Cleo ALDANA MD Organization Unknown Address [address] [place] [address], [address] [place] [address] Phone [phone] Care Team Providers Care Accounts Supervisor Name Role Phone Ese Dai AUTM [phone] AUTM Unavailable Tasia Villegas PA-C AUTM [phone] Jesica Roach P.A.-C. AUTM Problems Description No Information Available Social History Type Date Description Comments Sex Unknown Tobacco Use Start: Unknown End: Unknown Patient is a former smoker quit 12 years ago, and used to smoke 6 cigarettes a day! Smoking Status Reviewed: 11/06/19 Patient is a former smoker qu it 12 years ago, and used to smoke 6 cigarettes a day! Allergies, Adverse Reactions, Alerts Description No Known Drug Allergies Medications Active Medications SIG Qnty Indications Ordering Provide r Date Vitamin Tablets sig: one tab daily as directed. Unknown Zoloft 50mg Tablets 1 by mouth every day Unknown Vitamin D 2000Unit Tablets 1 tab by mouth every week Unknown Immunizations CPT Code Status Date Vaccine Lot # [id number] Given 03/15/2019 Influenza Virus Split 3 Yrs And Above For Intramuscular Use Vital Signs Date Vital Result Comment 11/06/2019 8:26am Body Temperature 97.0 F Height 63 inches 5'3" Weight 240.00 lb BMI (Body Mass Index) 42.5 kg/m2 [place] Body Weight 115 lb Weight 108.864 kg BSA (Body Surface Area) 2.09 m2 Results Description No Information Available Procedures Date Code Description Status 11/06/2019 38133 X-Ray Knee Complete W/Obliques & Tunnel And/Or Standing Views Completed Medical Devices Description No Information Available Encounters Type Date Location Provider Dx Diagnosis Office Visit 04/26/2020 8:10a [facility] Munir Aldana MD S83.242D Oth tear of medial meniscus, current inj ury, left knee, subs M17.12 Unilateral primary osteoarth ritis, left knee M24.29 Disorder of ligament, other specified site S80.02xD Contusion of left knee, subs equent encounter Office Visit 02/29/2020 8:20a [facility] Munir Aldana MD S83.242A Oth tear of medial meniscus, current inj ury, left knee, init S80.02xD Contusion of left knee, subs equent encounter M17.12 Unilateral primary osteoarth ritis, left knee M24.29 Disorder of ligament, other specified site Office Visit 01/08/2020 9:30a [facility] Munir Aldana MD S80.02xD Contusion of left knee, subsequent encou nter M25.562 Pain in left knee W01.0xxD Fall same lev from slip/trip w/o strike against object, subs Office Visit 12/11/2019 11:30a [facility] Munir Aldana MD S80.02xD Contusion of left knee, subsequent encou nter M25.562 Pain in left knee W01.0xxD Fall same lev from slip/trip w/o strike against object, subs Office Visit 11/06/2019 8:00a [facility] Munir Aldana MD S80.02xA Contusion of left knee, initial encounte r M25.562 Pain in left knee W01.0xxA Fall same lev from slip/trip w/o strike against object, init Assessments Date Code Description Provider 04/26/2020 S83.242D Other tear of medial meniscus, current injury, left knee, subsequent encounter Munir Aldana MD 04/26/2020 M17.12 Unilateral primary osteoarthriti s, left knee Munir Aldana MD 04/26/2020 M24.29 Disorder of ligament, other spec ified site Munir Aldana MD 04/26/2020 S80.02xD Contusion of left knee, subseque nt encounter Munir Aldana MD 02/29/2020 S83.242A Other tear of medial meniscus, current injury, left knee, initial encounter Munir Aldana MD 02/29/2020 S80.02xD Contusion of left knee, subseque nt encounter Munir Aldana MD 02/29/2020 M17.12 Unilateral primary osteoarthriti s, left knee Munir Aldana MD 02/29/2020 M24.29 Disorder of ligament, other spec ified site Munir Aldana MD 01/08/2020 S80.02xD Contusion of left knee, subseque nt encounter Munir Aldana MD 01/08/2020 M25.562 Pain in left knee Munir Aldana MD 01/08/2020 W01.0xxD Fall on same level f rom slipping, tripping and stumbling without subsequent striking against object, subsequent encounter Munir Aldana MD 12/11/2019 S80.02xD Contusion of left knee, subseque nt encounter Munir Aldana MD 12/11/2019 M25.562 Pain in left knee Munir Aldana MD 12/11/2019 W01.0xxD Fall on same level f rom slipping, tripping and stumbling without subsequent striking against object, subsequent encounter Munir Aldana MD 11/06/2019 S80.02xA Contusion of left knee, initial encounter Munir Aldana MD 11/06/2019 M25.562 Pain in left knee Munir Aldana MD 11/06/2019 W01.0xxA Fall on same level f rom slipping, tripping and stumbling without subsequent striking against object, initial encounter Munir Aldana MD Plan of Treatment 04/26/2020 - Munir Aldana MD* S83.242D Other tear of medial meniscus, current injury, left knee, subsequent encounter* New Orders:* Surgery, Ordered: 04/26/20 * Follow up:* post op. * M17.12 Unilateral primary osteoarthritis, left knee * M24.29 Disorder of ligament, other specified site * S80.02xD Contusion of left knee, subsequent encounter Functional Status Description No Information Available Mental Status Description No Information Available Referrals Refer to Reason for Referral Status Appt Date Munir Aldana MD PT LT KNEE WRITTEN AUTH PASSED TO TRIAGE THEN PT DEPT. LS Closed [address] [facility], [address] [place] [id number] [phone] Munir Aldana MD PT- LT KNEE WRITTEN AUTH PAS SED TOTRIAGE THEN PT DEPT. Closed [address] [place] [address] [phone] Munir Aldana MD MRI LT KNEE OK TO [facility] MTGS AND ONECALL TO [facility]. Closed [address] [place] [address] [phone] Munir Aldana MD PT- LT KNEE OK TO [facility] 2ND SE T. PASSED TO TRIAGE THEN PT DEPT. Closed [address] [place] [address] [phone] Munir Aldana MD PT LT KNEE OK TO [facility] 1ST SET SENT TO TRIAGE TO PASS TO PT DEPT. Closed [address] [place] [address] [phone]
[2020-07-10] MEDS ORDERED: VITA200048 PO (08:36)
[2020-07-10] MEDS ORDERED: METOCLOPRAMIDE INJ 10MG/2ML VIAL (J2765 PER 1) As Ordered ONE (10:40)
[2020-07-10] MEDS ORDERED: LIDOCAINE 2% 100MG/5ML SDV (FOR ANES.) As Ordered ONE (10:40)
[2020-07-10] MEDS ORDERED: ONDANSETRON 4MG/2ML VIAL As Ordered ONE (10:40)
[2020-07-10] MEDS ORDERED: propofoL 200 MG/20 ML VIAL As Ordered ONE (10:40)
[2020-07-10] MEDS ORDERED: MIDAZOLAM INJ 2MG/2ML VIAL (J2250 PER 1MG) As Ordered ONE (10:40)
[2020-07-10] MEDS ORDERED: fentaNYL 100 MCG/2 ML INJECTION (J3010) As Ordered ONE (10:41)
[2020-07-10] MEDS ORDERED: ROPIvacaine 0.5% 30ML INJECTION (J2795 PER 1MG) As Ordered ONE (11:14)
[2020-07-10] MEDS ORDERED: KETOROLAC 60MG 2ML VIAL As Ordered ONE (12:06)
[2020-07-10] MEDS ORDERED: ONDANSETRON 4MG/2ML VIAL IV PRN ×2 (12:45→13:00)
[2020-07-10] MEDS ORDERED: METOCLOPRAMIDE INJ 10MG/2ML VIAL (J2765 PER 1) IV PRN (12:45)
[2020-07-10] MEDS ORDERED: PERCOCET 5MG/325MG TAB PO PRN ×2 (12:45→13:00)
[2020-07-10] MEDS ORDERED: LR 1,000 ML IV SCH ×2 (12:45→13:00)
[2020-07-10] MEDS ORDERED: fentaNYL 100 MCG/2 ML INJECTION (J3010) IV PRN (12:45)
[2020-07-10] MEDS ORDERED: MORPHINE 2 MG/ML 1ML VIAL (J2270) IV PRN (13:00)
[2020-07-10] MEDS ORDERED: ACETAMINOPHEN TAB 650MG DOSE (2X325MG) PO PRN (13:00)
--- NOTE | 2020-07-10 14:43 | RO ---
OPERATIVE NOTE DATE OF OPERATION: 07/10/2020 SURGEON: Munir Romero MD ASSEMBLER ERECTOR: ANESTHESIOLOGIST: Dr. Hand. ANESTHESIA: Spinal anesthetic. PREOPERATIVE DIAGNOSIS: Left knee posterior horn medial meniscus tear. POSTOPERATIVE DIAGNOSIS: Left knee posterior horn medial meniscus tear. PLANNED PROCEDURE: Left knee arthroscopy, partial medial meniscectomy. PROCEDURE PERFORMED: Left knee arthroscopy, partial medial meniscectomy. OPERATIVE PREAMBLE: This 44-year-old female had a posterior horn medial meniscal tear. We discussed pros, cons, risks, benefits of going ahead with surgery. She wished to proceed on the left lower extremity. She had no further questions. OPERATIVE REPORT: The patient was brought to the operating theater. She was administered an anesthetic by the anesthesia team. She was then placed supine on the operating room table. The tourniquet was applied to the left thigh and appropriately padded. Stress positioner was used on the patient's left side. The limb was prepped and draped in the usual sterile fashion allowing over three minutes for the chlorhexidine-based prep solution to thoroughly dry. All bony prominences were appropriately padded. Then, 2 grams of IV Ancef was administered prior to the start of the case. A preoperative timeout was performed to confirm the site, the patient, and surgery. I began by elevating the limb and inflating the tourniquet to 250 mmHg. I used standard anterolateral and anteromedial arthroscopy portals. I examined the full intraarticular extent of the knee. No loose bodies in the medial and lateral gutters. ACL and PCL appeared normal. The patella had grade 1 undersurface softening in a small area 5 mm, mostly on the medial side. The trochlea on exam had mostly on the distal aspect of the trochlea grade 1-2 softening. No obvious full-thickness cartilage defect. The lateral compartment appeared normal. The lateral meniscus was stable and solid with probing. Upon return to the medial compartment, there was grade 2-3 changes on the distal medial femoral condyle. Less so grade 1 softening on the tibial side. This was gently debrided using a shaving instrument. There was an obvious posterior horn medial meniscal tear. Roots anteriorly, as well as posteriorly of the medial meniscus were stable and solid. This was a horizontal cleavage tear with a small inner flap parrot beak type component. This was gently debrided using basket forceps and shaving instruments. The total partial meniscectomy of about 5 percent of the total surface area of the meniscus. The meniscus was stable and solid on probing afterwards. There was also inner surface fraying in the anterior horn of the medial meniscus, which again, I gently debrided. The procedure was terminated. The knee was sterilely irrigated. The skin was cleaned with wet-to-dry dressings followed by application of Steri-Strips. Adaptic 4x8 gauze and ABD dressing was then placed onto the knee and over wrapped with 6-inch [employer] bandage. The procedure was terminated. The tourniquet was let down prior to the end of the case. The total tourniquet time was 17 minutes. The patient was transferred off of the operating room table after the drapes were removed and taken to the postanesthetic care unit in stable condition. All sponge, needle, and instrument counts were correct. No complications. Estimated blood loss was 10 mL. PLAN: Plan for the patient is to be discharged to home according to day surgery criteria. Prescription will be sent to the pharmacy electronically. He may start immediate range of motion and weight bearing as tolerated and see me in the office in two weeks' time for followup.
[2020-07-10 16:13] VITALS: BP 119/58
--- NOTE | 2020-07-11 15:49 | ECGEPIP ---
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
== END 2020-07-10 18:15 | disposition home or self-care (01) ==
LOC: M SDC 08:09
PROVIDERS: ATTEND Orthopaedic Surgery Sports Medicine
DX: M23.222 Derangement of posterior horn of medial meniscus due to old tear or injury, left knee (principal); F41.9 Anxiety disorder, unspecified; G47.33 Obstructive sleep apnea (adult) (pediatric); K21.9 Gastro-esophageal reflux disease without esophagitis; R21 Rash and other nonspecific skin eruption; R06.83 Snoring; Z79.899 Other long term (current) drug therapy
CPT/HCPCS: 29881; 81025; 93005; J0690; J1885; J2250; J2405; J2765; J2795; J3010

== ENCOUNTER → 2021-01-22 | Outpatient (REF) | payer OTHER ==
[~2021-01-22] MED LIST changes: -LR 1,000 ML IV ONE; +VITA200048 PO; -ceFAZolin SOD 2 GM in IV 1 EA IV ONE
[2021-01-22 13:34] LABS: HEMATOCRIT 43.5 % (36.0-47.0); HEMOGLOBIN 13.8 g/dl (12.0-15.5); MEAN CORPUSCULAR HEMOGLOBIN 28.9 pg (27.0-33.0); MEAN CORPUSCULAR HGB CONC 31.7 g/dl (32.0-36.5); PLATELET COUNT, AUTOMATED 350 10^3/uL (150-450); RED BLOOD COUNT 4.78 10^6/uL (4.00-5.40); WHITE BLOOD COUNT 7.7 10^3/uL (4.0-10.0)
[2021-01-22 14:39] LABS: ALBUMIN 3.7 GM/DL (3.2-5.2); ALT/SGPT 28 U/L (12-78); BILIRUBIN,TOTAL 0.2 MG/DL (0.2-1.0); BLOOD UREA NITROGEN 15 MG/DL (7-18); CALCIUM LEVEL 9.4 MG/DL (8.5-10.1); CARBON DIOXIDE LEVEL 26 MEQ/L (21-32); CHLORIDE LEVEL 110 MEQ/L (98-107); CHOLESTEROL LEVEL 184 MG/DL (<200); CHOLESTEROL RISK RATIO 3.285 (<5); FREE T4 0.92 NG/DL (0.76-1.46); GLOMERULAR FILTRATION RATE > 60.0 (>58); GLUCOSE, FASTING 92 MG/DL (70-100); HDL CHOLESTEROL 56 MG/DL (>40); LDL CHOLESTEROL 113 MG/DL (<100); NON-HDL-C 128 MG/DL; POTASSIUM SERUM 4.4 MEQ/L (3.5-5.1); SODIUM LEVEL 140 MEQ/L (136-145); TOTAL PROTEIN 7.7 GM/DL (6.4-8.2); TRIGLYCERIDES LEVEL 74 MG/DL (<150)
== END ==
LOC: M SFHCADAM 11:47
PROVIDERS: ATTEND Physician Assistant
DX: K21.9 Gastro-esophageal reflux disease without esophagitis (principal); E78.5 Hyperlipidemia, unspecified; E66.9 Obesity, unspecified

== ENCOUNTER → 2021-03-05 | Outpatient (CLI) | payer OTHER ==
--- NOTE | 2021-03-05 08:56 | REPMRS ---
Patient History The patient states she had a clinical breast exam in February 2021. Family history of breast cancer at age 31 in mother. Tomosynthesis is performed. Volpara breast density is a. Patient states no breast complaints today. Patient has signed MRS History Sheet. Digital Woman Screen Mammo: March 05, 2021 - Exam #: [id number] Bilateral CC and MLO view(s) were taken. Technologist: Araceli Marquis, Technologist Prior study comparison: March 14, 2020, bilateral digital mammo screening bilat, performed at [facility]. May 09, 2018, bilateral digital mammo screening bilat, performed at [facility]. FINDINGS: There are scattered fibroglandular densities. There has been no change in the appearance of the mammogram from the prior studies. There is a mild amount of residual fibroglandular tissue which is fairly symmetric. There is no interval development of dominant mass, architectural distortion, or clustered microcalcification suggestive of malignancy. Assessment: BI-RADS/ACR category 1 mammogram. Negative Mammogram. Recommendation Routine screening mammogram in 1 year (for women over age 40). This mammogram was interpreted with the aid of an FDA-approved computer-aided dectection system. The Lifetime Breast Cancer Risk is estimated at 28.4%. Yearly supplemental screening MRI of the breasts is recommended for patients with an elevated lifetime risk of breast cancer of 20% or greater, in addition to annual screening mammography, staggered every 6 months. Electronically Signed By: Naga Maher MD 03/05/21 0856
== END ==
LOC: M WHC 07:19
PROVIDERS: ATTEND Nurse Practitioner Women's Health
DX: Z12.31 Encounter for screening mammogram for malignant neoplasm of breast (principal); Z12.39 Encounter for other screening for malignant neoplasm of breast; Z91.89 Other specified personal risk factors, not elsewhere classified; Z15.01 Genetic susceptibility to malignant neoplasm of breast; Z80.3 Family history of malignant neoplasm of breast

== ENCOUNTER → 2021-03-05 | Outpatient (REF) | payer OTHER | LOC: M SFHCWAGY 10:05 | PROVIDERS: ATTEND Nurse Practitioner Women's Health | DX: Z12.4 Encounter for screening for malignant neoplasm of cervix (principal); Z77.9 Other contact with and (suspected) exposures hazardous to health | CPT/HCPCS: 87624; G0123 ==

== ENCOUNTER → 2021-04-16 | Outpatient (REF) | payer OTHER | LOC: M LAB REF 19:23 | PROVIDERS: ATTEND Physician Assistant | DX: R05.9 Cough, unspecified (principal) ==

== ENCOUNTER → 2021-11-29 | Outpatient (REF) | payer OTHER | LOC: M LAB REF 16:51 | PROVIDERS: ATTEND Physician Assistant | DX: R30.0 Dysuria (principal) ==

== ENCOUNTER → 2021-12-01 | Outpatient (CLI) | payer OTHER ==
[~2021-12-01] MED LIST changes: +PROHANCE 279.3MG/ML 15ML VIAL ONE; +PROHANCE 279.3MG/ML 5ML VIAL ONE
== END ==
LOC: M PLAIMG 10:18
PROVIDERS: ATTEND Physician Assistant
DX: Z12.31 Encounter for screening mammogram for malignant neoplasm of breast (principal); Z91.89 Other specified personal risk factors, not elsewhere classified; Z15.01 Genetic susceptibility to malignant neoplasm of breast
CPT/HCPCS: A9576; C8908

== ENCOUNTER → 2022-03-16 | Outpatient (REF) | payer OTHER ==
[~2022-03-16] MED LIST changes: -PROHANCE 279.3MG/ML 15ML VIAL ONE; -PROHANCE 279.3MG/ML 5ML VIAL ONE
== END ==
LOC: M SFHCWAGY 10:12
PROVIDERS: ATTEND Obstetrics & Gynecology
DX: Z12.4 Encounter for screening for malignant neoplasm of cervix (principal)
CPT/HCPCS: 87624; G0123

== ENCOUNTER → 2022-03-16 | Outpatient (CLI) | payer OTHER | LOC: M WHC 07:58 | PROVIDERS: ATTEND Obstetrics & Gynecology | DX: Z12.31 Encounter for screening mammogram for malignant neoplasm of breast (principal) ==

== ENCOUNTER 2022-04-03 21:07 | Emergency (ER) | payer OTHER ==
[~2022-04-03] VITALS: Ht 160 cm; Wt 118.9 kg
[2022-04-03 21:10] VITALS: BP 146/87
[2022-04-03] MEDS ORDERED: SERT25TA21 PO (21:15)
[2022-04-03 22:20] LABS: BASO # 0.1 10^3/uL (0.0-0.2); BASO % 0.9 % (0.0-1.0); EOS # 0.3 10^3/uL (0.0-0.5); EOS % 2.3 % (0.0-3.0); HEMATOCRIT 40.5 % (36.0-47.0); HEMOGLOBIN 13.1 g/dl (12.0-15.5); LYMPH # 4.3 10^3/uL (1.5-5.0); LYMPH % 39.4 % (24.0-44.0); MEAN CORPUSCULAR HEMOGLOBIN 29.4 pg (27.0-33.0); MEAN CORPUSCULAR HGB CONC 32.3 g/dl (32.0-36.5); MONO # 0.6 10^3/uL (0.0-0.8); MONO % 5.5 % (2.0-8.0); NEUTROPHILS # 5.6 10^3/uL (1.5-8.5); NEUTROPHILS % 51.5 % (36.0-66.0); PLATELET COUNT, AUTOMATED 333 10^3/uL (150-450); RED BLOOD COUNT 4.45 10^6/uL (4.00-5.40); WHITE BLOOD COUNT 10.9 10^3/uL (4.0-10.0)
[2022-04-03 22:36] LABS: HCG, SERUM QUALITATIVE NEGATIVE (NEGATIVE)
[2022-04-03 22:45] LABS: ALBUMIN 3.8 GM/DL (3.2-5.2); ALT/SGPT 32 U/L (12-78); BILIRUBIN,TOTAL 0.2 MG/DL (0.2-1.0); BLOOD UREA NITROGEN 14 MG/DL (7-18); CALCIUM LEVEL 9.7 MG/DL (8.5-10.1); CARBON DIOXIDE LEVEL 24 MEQ/L (21-32); CHLORIDE LEVEL 105 MEQ/L (98-107); CREATININE FOR GFR 0.78 MG/DL (0.55-1.30); GLOMERULAR FILTRATION RATE > 60.0 (>58); GLUCOSE, FASTING 104 MG/DL (70-100); POTASSIUM SERUM 4.1 MEQ/L (3.5-5.1); SODIUM LEVEL 138 MEQ/L (136-145); TOTAL PROTEIN 7.7 GM/DL (6.4-8.2)
[2022-04-03 23:04] LABS: HEPATITIS B SURFACE ANTIBODY POSITIVE (POSITIVE)
[2022-04-03 23:14] LABS: HEPATITIS B SURFACE ANTIGEN NEGATIVE (NEGATIVE)
[2022-04-03 23:43] LABS: HEPATITIS C VIRUS ABY INDEX 0.2 INDEX (<0.8); HIV 1&2 SCREEN CENTAUR NEGATIVE (NEGATIVE)
[2022-04-04] MEDS ORDERED: RALTEGRAVIR 400 MG TAB (ISENTRESS) PO SCH
[2022-04-04] MEDS ORDERED: TRUVADA 200MG/300MG TABLET PO SCH
[2022-04-04] MEDS ORDERED: TRUVADA 200MG/300MG TABLET PO ONE (00:15)
[2022-04-04] MEDS ORDERED: BOOSTRIX/ADACEL VACCINE (DIPHTH/PERTUSS/ACELL/TETANUS) 0.5ML SYR IM.IMMUN ONE (00:15)
[2022-04-04] MEDS ORDERED: ONDANSETRON 4MG ORAL DISINTEGRATING TAB PO ONE (00:15)
[2022-04-04] MEDS ORDERED: EXPOSURE KIT-ADULT 7 DAY SUPPLY PO ONE (00:15)
[2022-04-04] MEDS ORDERED: HEPATITIS B VACCINE 20MCG/ML 1ML SYRINGE (ADULT DOSE) IM.IMMUN ONE (00:15)
[2022-04-04] MEDS ORDERED: RALTEGRAVIR 400 MG TAB (ISENTRESS) PO ONE (00:15)
[2022-04-04] MEDS ORDERED: RALT40TA PO (00:46)
[2022-04-04] MEDS ORDERED: EMTR1TAB16 PO (00:46)
[2022-04-04] MEDS ORDERED: ONDA4TAB6 PO (00:46)
== END 2022-04-04 01:06 | disposition home or self-care (01) ==
LOC: M ED 21:07
DX: Z77.21 Contact with and (suspected) exposure to potentially hazardous body fluids (principal); Y99.0 Civilian activity done for income or pay; G47.33 Obstructive sleep apnea (adult) (pediatric); F41.9 Anxiety disorder, unspecified; Z79.899 Other long term (current) drug therapy

== ENCOUNTER → 2022-05-05 | Outpatient (CLI) | payer OTHER ==
[~2022-05-05] MED LIST changes: +EMTR1TAB16 PO; +ONDA4TAB6 PO; +RALT40TA PO; +SERT25TA21 PO
[2022-05-05 17:51] LABS: BASO # 0.1 10^3/uL (0.0-0.2); BASO % 1.3 % (0.0-1.0); EOS # 0.5 10^3/uL (0.0-0.5); EOS % 5.3 % (0.0-3.0); HEMATOCRIT 42.5 % (36.0-47.0); HEMOGLOBIN 13.3 g/dl (12.0-15.5); LYMPH # 2.9 10^3/uL (1.5-5.0); MEAN CORPUSCULAR HGB CONC 31.3 g/dl (32.0-36.5); MEAN CORPUSCULAR VOLUME 92.6 fl (80.0-96.0); MONO # 0.6 10^3/uL (0.0-0.8); MONO % 6.9 % (2.0-8.0); NEUTROPHILS # 4.5 10^3/uL (1.5-8.5); NEUTROPHILS % 52.3 % (36.0-66.0); PLATELET COUNT, AUTOMATED 295 10^3/uL (150-450); RED BLOOD COUNT 4.59 10^6/uL (4.00-5.40); WHITE BLOOD COUNT 8.5 10^3/uL (4.0-10.0)
[2022-05-05 18:28] LABS: ALBUMIN 3.8 G/DL (3.2-5.2); ALKALINE PHOSPHATASE 96 U/L (46-116); ALT/SGPT 35 U/L (7.0-40); AST/SGOT 30 U/L (<34); BILIRUBIN,TOTAL 0.3 MG/DL (0.3-1.2); BLOOD UREA NITROGEN 21 MG/DL (9-23); CARBON DIOXIDE LEVEL 26 MMOL/L (20-31); CHLORIDE LEVEL 106 MMOL/L (98-107); GLOMERULAR FILTRATION RATE > 60.0 (>58); GLUCOSE, FASTING 85 MG/DL (60-100); SODIUM LEVEL 139 MMOL/L (136-145); TOTAL PROTEIN 7.4 G/DL (5.7-8.2)
[2022-05-05 19:01] LABS: HIV 1&2 SCREEN CENTAUR NEGATIVE (NEGATIVE)
[2022-05-05 19:08] LABS: HEPATITIS C VIRUS ABY INDEX 0.1 INDEX (<0.8)
== END ==
LOC: M WUC 13:11
PROVIDERS: ATTEND Internal Medicine Infectious Disease
DX: Z77.21 Contact with and (suspected) exposure to potentially hazardous body fluids (principal)

== ENCOUNTER → 2022-05-29 | Outpatient (CLI) | payer OTHER | LOC: M RAD 17:37 | PROVIDERS: ATTEND Physician Assistant | DX: M79.601 Pain in right arm (principal); M79.602 Pain in left arm; M47.812 Spondylosis without myelopathy or radiculopathy, cervical region ==

== ENCOUNTER → 2022-06-08 | Outpatient (REF) | payer OTHER | LOC: M WUC 20:11 | PROVIDERS: ATTEND Student in an Organized Health Care Education/Training Program | DX: J02.9 Acute pharyngitis, unspecified (principal) ==

== ENCOUNTER → 2022-07-14 | Outpatient (REF) | payer OTHER ==
[2022-07-14 15:26] LABS: HIV 1&2 SCREEN CENTAUR NEGATIVE (NEGATIVE)
== END ==
LOC: M LABDRWAD 13:11
PROVIDERS: ATTEND Internal Medicine Infectious Disease
DX: Z77.21 Contact with and (suspected) exposure to potentially hazardous body fluids (principal)

== ENCOUNTER → 2023-01-14 | Outpatient (CLI) | payer OTHER ==
[~2023-01-14] MED LIST changes: +PROHANCE 279.3MG/ML 15ML VIAL ONE; +PROHANCE 279.3MG/ML 5ML VIAL ONE
== END ==
LOC: M PLAIMG 08:59
PROVIDERS: ATTEND Obstetrics & Gynecology
DX: Z12.39 Encounter for other screening for malignant neoplasm of breast (principal); Z80.3 Family history of malignant neoplasm of breast; Z91.89 Other specified personal risk factors, not elsewhere classified
CPT/HCPCS: A9576; C8908

== ENCOUNTER → 2023-04-21 | Outpatient (REF) | payer OTHER ==
[~2023-04-21] MED LIST changes: -PROHANCE 279.3MG/ML 15ML VIAL ONE; -PROHANCE 279.3MG/ML 5ML VIAL ONE
[2023-04-21 17:52] LABS: APPEARANCE, URINE HAZY (CLEAR); BACTERIA, URINE AUTO NEGATIVE (NEGATIVE); BILIRUBIN, URINE AUTO NEGATIVE (NEGATIVE); BLOOD, URINE BLOOD NEGATIVE (NEGATIVE); COLOR, URINE YELLOW (YELLOW); GLUCOSE, URINE (UA) AUTO NEGATIVE (NEGATIVE); KETONE, URINE AUTO NEGATIVE (NEGATIVE); LEUKOCYTE ESTERASE, URINE AUTO NEGATIVE (NEGATIVE); NITRITE, URINE AUTO NEGATIVE (NEGATIVE); PROTEIN, URINE AUTO NEGATIVE (NEGATIVE); RBC, URINE AUTO 0 /HPF (0-3); SPECIFIC GRAVITY URINE AUTO 1.014 (1.002-1.035); SQUAMOUS EPITHELIAL CELL UR AU 2 /HPF (0-6); UROBILINOGEN, URINE AUTO 0.2 mg/dL (0.0-2.0); WBC, URINE AUTO 0 /HPF (0-3)
[2023-04-21 17:53] LABS: ALBUMIN 3.8 G/DL (3.2-5.2); ALKALINE PHOSPHATASE 87 U/L (46-116); ALT/SGPT 40 U/L (7.0-40); AST/SGOT 30 U/L (<34); BILIRUBIN,TOTAL 0.2 MG/DL (0.3-1.2); BLOOD UREA NITROGEN 15 MG/DL (9-23); CALCIUM LEVEL 10.2 MG/DL (8.5-10.1); CARBON DIOXIDE LEVEL 30 MMOL/L (20-31); CHLORIDE LEVEL 106 MMOL/L (98-107); CHOLESTEROL LEVEL 204 MG/DL (<200); CHOLESTEROL RISK RATIO 3.28 (<5); GLOMERULAR FILTRATION RATE > 60.0 (>58); GLUCOSE, FASTING 88 MG/DL (60-100); HDL CHOLESTEROL 62.1 MG/DL (>40); LDL CHOLESTEROL 106.1 MG/DL (<100); NON-HDL-C 141.9 MG/DL; POTASSIUM SERUM 4.5 MMOL/L (3.5-5.1); SODIUM LEVEL 141 MMOL/L (136-145); TOTAL PROTEIN 7.6 G/DL (5.7-8.2); TRIGLYCERIDES LEVEL 179 MG/DL (<150)
[2023-04-21 17:55] LABS: FREE T4 0.99 NG/DL (0.89-1.76); HEMATOCRIT 43.5 % (36.0-47.0); HEMOGLOBIN 13.9 g/dl (12.0-15.5); MEAN CORPUSCULAR HEMOGLOBIN 29.1 pg (27.0-33.0); PLATELET COUNT, AUTOMATED 300 10^3/uL (150-450); RED BLOOD COUNT 4.78 10^6/uL (4.00-5.40); WHITE BLOOD COUNT 9.6 10^3/uL (4.0-10.0)
[2023-04-21 18:21] LABS: HEMOGLOBIN A1c 5.3 % (4.0-6.0); THYROID STIMULATING HORMONE 2.924 uIU/ML (0.55-4.78)
== END ==
LOC: M SFHCADAM 15:16
PROVIDERS: ATTEND Physician Assistant
DX: R07.89 Other chest pain (principal); K21.9 Gastro-esophageal reflux disease without esophagitis; F41.1 Generalized anxiety disorder; R82.998 Other abnormal findings in urine

== ENCOUNTER → 2023-06-03 | Outpatient (CLI) | payer OTHER | LOC: M WHC 07:25 | PROVIDERS: ATTEND Obstetrics & Gynecology | DX: Z12.31 Encounter for screening mammogram for malignant neoplasm of breast (principal); R92.323 Mammographic fibroglandular density, bilateral breasts ==

== ENCOUNTER → 2023-06-24 | Outpatient (REF) | payer OTHER ==
[2023-06-24 13:51] LABS: BASO # 0.1 10^3/uL (0.0-0.2); BASO % 1.3 % (0.0-1.0); EOS # 0.2 10^3/uL (0.0-0.5); EOS % 2.5 % (0.0-3.0); HEMATOCRIT 41.2 % (36.0-47.0); HEMOGLOBIN 13.3 g/dl (12.0-15.5); LYMPH # 2.8 10^3/uL (1.5-5.0); LYMPH % 33.3 % (24.0-44.0); MEAN CORPUSCULAR HEMOGLOBIN 29.7 pg (27.0-33.0); MEAN CORPUSCULAR HGB CONC 32.3 g/dl (32.0-36.5); MONO # 0.6 10^3/uL (0.0-0.8); MONO % 7.2 % (2.0-8.0); NEUTROPHILS # 4.6 10^3/uL (1.5-8.5); NEUTROPHILS % 55.5 % (36.0-66.0); PLATELET COUNT, AUTOMATED 287 10^3/uL (150-450); RED BLOOD COUNT 4.48 10^6/uL (4.00-5.40); WHITE BLOOD COUNT 8.4 10^3/uL (4.0-10.0)
[2023-06-24 14:19] LABS: ALBUMIN 3.5 G/DL (3.2-5.2); ALKALINE PHOSPHATASE 93 U/L (46-116); ALT/SGPT 37 U/L (7.0-40); AST/SGOT 25 U/L (<34); BILIRUBIN,TOTAL 0.2 MG/DL (0.3-1.2); BLOOD UREA NITROGEN 16 MG/DL (9-23); CARBON DIOXIDE LEVEL 27 MMOL/L (20-31); CHLORIDE LEVEL 107 MMOL/L (98-107); CREATININE FOR GFR 0.65 MG/DL (0.55-1.30); GLOMERULAR FILTRATION RATE > 60.0 (>58); GLUCOSE, FASTING 82 MG/DL (60-100); POTASSIUM SERUM 4.3 MMOL/L (3.5-5.1); SODIUM LEVEL 139 MMOL/L (136-145); TOTAL PROTEIN 7.3 G/DL (5.7-8.2)
== END ==
LOC: M SFHCADAM 11:20
PROVIDERS: ATTEND Physician Assistant
DX: M79.89 Other specified soft tissue disorders (principal)

== ENCOUNTER → 2023-06-24 | Outpatient (CLI) | payer OTHER | LOC: M ADAMS 11:22 | PROVIDERS: ATTEND Physician Assistant | DX: M79.89 Other specified soft tissue disorders (principal) ==

== ENCOUNTER → 2023-06-24 | Outpatient (CLI) | payer OTHER | LOC: M RAD 13:18 | PROVIDERS: ATTEND Physician Assistant | DX: M79.89 Other specified soft tissue disorders (principal) ==

== ENCOUNTER → 2023-07-06 | Outpatient (REF) | payer OTHER ==
[2023-07-06 14:43] LABS: RSV AMPLIFICATION NEGATIVE (NEGATIVE)
== END ==
LOC: M LAB REF 13:26
PROVIDERS: ATTEND Physician Assistant
DX: J06.9 Acute upper respiratory infection, unspecified (principal)

== ENCOUNTER → 2023-09-01 | Outpatient (REF) | payer OTHER | LOC: M LAB REF 10:35 | PROVIDERS: ATTEND Student in an Organized Health Care Education/Training Program | DX: R30.0 Dysuria (principal) ==

== ENCOUNTER → 2024-08-10 | Outpatient (CLI) | payer OTHER ==
[~2024-08-10] MED LIST changes: +ONDA-282 PO; -ONDA4TAB6 PO
== END ==
LOC: M WHC 07:43
PROVIDERS: ATTEND Physician Assistant
DX: Z12.31 Encounter for screening mammogram for malignant neoplasm of breast (principal); Z91.89 Other specified personal risk factors, not elsewhere classified; Z80.3 Family history of malignant neoplasm of breast

== ENCOUNTER → 2025-01-30 | Outpatient (CLI) | payer OTHER ==
[~2025-01-30] MED LIST changes: -IBUP-1022 PO; +IBUP600T42 PO; +PROHANCE 279.3MG/ML 15ML VIAL ONE; +PROHANCE 279.3MG/ML 5ML VIAL ONE
== END ==
LOC: M PLAIMG 10:12
PROVIDERS: ATTEND Physician Assistant
DX: Z12.39 Encounter for other screening for malignant neoplasm of breast (principal); Z91.89 Other specified personal risk factors, not elsewhere classified; Z80.3 Family history of malignant neoplasm of breast
CPT/HCPCS: A9576; C8908

== ENCOUNTER → 2025-05-08 | Outpatient (CLI) | payer OTHER ==
[~2025-05-08] MED LIST changes: -PROHANCE 279.3MG/ML 15ML VIAL ONE; -PROHANCE 279.3MG/ML 5ML VIAL ONE
== END ==
LOC: M PLAIMG 08:05
PROVIDERS: ATTEND Physician Assistant
DX: M17.12 Unilateral primary osteoarthritis, left knee (principal); M22.2X2 Patellofemoral disorders, left knee; R93.6 Abnormal findings on diagnostic imaging of limbs; M94.262 Chondromalacia, left knee

== ENCOUNTER → 2025-05-14 | Outpatient (REF) | payer OTHER | LOC: M LABWUC 14:04 | PROVIDERS: ATTEND Physician Assistant | DX: R30.0 Dysuria (principal) ==